=== PATIENT | male | born 1965 | race Caucasian/White ===

== ENCOUNTER → 2019-05-03 08:54 | Outpatient (CLI) | payer OTHER, SELFPAY ==
--- NOTE | 2019-05-03 09:09 | EKG12_ITS ---
Test Reason : PREOP Blood Pressure : / mmHG Vent. Rate : 066 BPM Atrial Rate : 066 BPM P-R Int : 176 ms QRS Dur : 114 ms QT Int : 394 ms P-R-T Axes : 041 -12 015 degrees QTc Int : 413 ms Normal sinus rhythm Minimal voltage criteria for LVH, may be normal variant Borderline ECG Confirmed by UZIEL CAPELLAN, MATIAS ([id number]), production editor KATEY RILEY ([id number]) on 05/05/2019 8:45:25 AM Referred By: Saji Dotson Confirmed By:MATIAS TRIPLETT MD
[2019-05-03 09:49] LABS: Hematocrit 51.3 % (40-54); Hemoglobin 16.4 g/dL (13.0-16.5); Mean Corpuscular Hgb 29.3 pg (27.0-32.0); Mean Corpuscular Volume 91.6 fL (80-94); Mean Platelet Vol. 10.1 fl (6.2-12.0); Platelet Count 327 K/mm3 (150-450); RBC Distribution Width CV 12.5 % (11.6-14.6); RBC Distribution Width SD 41.9 fl (35.1-43.9); White Blood Count 6.9 K/mm3 (4.4-11.0)
[2019-05-03 10:23] LABS: Anion Gap 4 (5-15); BUN 17 mg/dL (7-18); BUN/Creat Ratio 15.7 RATIO (10-20); Calcium,Total 8.7 mg/dL (8.5-10.1); Chloride 107 mmol/L (98-107); Creatinine, Serum 1.08 mg/dL (0.70-1.30); EST Glomerular Filtration Rate 75 mL/min (>60); Est Glom Filt Rate - Afr Amer 91 mL/min (>60); Glucose 88 mg/dL (74-106); Potassium 4.3 mmol/L (3.5-5.1); Sodium Level 142 mmol/L (136-145)
== END ==
PROVIDERS: Referring Provider Physician Assistant; Visit Provider Physician Assistant
DX: Z01.810 Encounter for preprocedural cardiovascular examination (principal); Z01.818 Encounter for other preprocedural examination
CPT/HCPCS: 36415; 80048; 85027; 93005

== ENCOUNTER → 2020-08-04 07:15 | Outpatient (CLI) | payer OTHER, SELFPAY ==
[2020-08-04 08:42] LABS: Microalbumin,Random Urine 11.3 mg/L (NO RANGE EST.); Microalbumin:Creatinine Ratio 6.6 mg/g CRE (<30 mg/g CRE)
[2020-08-04 08:57] LABS: Anion Gap 2 (5-15); BUN 17 mg/dL (7-18); Calcium,Total 8.5 mg/dL (8.5-10.1); Chloride 108 mmol/L (98-107); Cholesterol 177 mg/dL (200); EST Glomerular Filtration Rate 82 mL/min (>60); Est Glom Filt Rate - Afr Amer 99 mL/min (>60); Glucose 93 mg/dL (74-106); High Density Lipoprotein 39 mg/dL; Potassium 4.1 mmol/L (3.5-5.1); Sodium Level 139 mmol/L (136-145); Triglycerides 59 mg/dL; Very Low Density Lipoprotein 12 mg/dL (5-40)
== END ==
PROVIDERS: PCP Family Medicine; Referring Provider Family Medicine; Visit Provider Family Medicine
DX: I10 Essential (primary) hypertension (principal)
CPT/HCPCS: 36415; 80048; 80061; 82043; 82570

== ENCOUNTER → 2022-03-29 | Outpatient (CLI) | payer OTHER, SELFPAY ==
[2022-03-29 08:48] LABS: Anion Gap 2 (5-15); BUN 16 mg/dL (7-18); BUN/Creat Ratio 15.8 RATIO (10-20); Calcium,Total 9.3 mg/dL (8.5-10.1); Chloride 109 mmol/L (98-107); Cholesterol 198 mg/dL (200); Creatinine, Serum 1.01 mg/dL (0.70-1.30); EST Glomerular Filtration Rate 80 mL/min (>60); Est Glom Filt Rate - Afr Amer 97 mL/min (>60); Glucose 95 mg/dL (74-106); High Density Lipoprotein 36 mg/dL; Potassium 4.4 mmol/L (3.5-5.1); Sodium Level 141 mmol/L (136-145); Triglycerides 49 mg/dL; Very Low Density Lipoprotein 10 mg/dL (5-40)
== END | disposition home or self-care (01) ==
LOC: LAB.FUTURE 07:46 → LAB 07:52
PROVIDERS: PCP Family Medicine; Referring Provider Urology; Visit Provider Urology
DX: I10 Essential (primary) hypertension (principal); Z12.5 Encounter for screening for malignant neoplasm of prostate
CPT/HCPCS: 36415; 80048; 80061; 84153; G0103

== ENCOUNTER → 2022-10-20 | Outpatient (CLI) | payer BC, SELFPAY ==
[2022-10-20 18:58] LABS: Anion Gap 5 (5-15); BUN 21 mg/dL (7-18); BUN/Creat Ratio 19.1 RATIO (10-20); Chloride 109 mmol/L (98-107); EST Glomerular Filtration Rate 73 mL/min (>60); Est Glom Filt Rate - Afr Amer 88 mL/min (>60); Glucose 85 mg/dL (74-106); Potassium 3.9 mmol/L (3.5-5.1); Sodium Level 139 mmol/L (136-145)
== END | disposition home or self-care (01) ==
LOC: MFPLAB 15:28
PROVIDERS: PCP Family Medicine; Visit Provider Nurse Practitioner Family
DX: I10 Essential (primary) hypertension (principal)
CPT/HCPCS: 36415; 80048

== ENCOUNTER → 2024-04-23 | Outpatient (CLI) | payer BC, SELFPAY ==
[2024-04-23 09:47] LABS: ALB/GLOB Ratio 1.1 RATIO (0.9-2.4); AST(SGOT) 15 U/L (15-37); Alanine Aminotransfer ALT/SGPT 38 U/L (16-61); Albumin, Serum 3.7 g/dL (3.2-5.0); Alkaline Phosphatase 65 U/L (45-117); Anion Gap 4 (5-15); BUN 14 mg/dL (7-18); BUN/Creat Ratio 14.1 RATIO (10-20); Calcium,Total 8.7 mg/dL (8.5-10.1); Chloride 107 mmol/L (98-107); Cholesterol 196 mg/dL (200); Creatinine, Serum 0.99 mg/dL (0.70-1.30); EST Glomerular Filtration Rate 82 mL/min (>60); Est Glom Filt Rate - Afr Amer 99 mL/min (>60); Globulin 3.5 g/dL (2.2-4.2); Glucose 94 mg/dL (74-106); High Density Lipoprotein 43 mg/dL; Potassium 3.8 mmol/L (3.5-5.1); Protein, Total 7.2 g/dL (6.4-8.2); Sodium Level 139 mmol/L (136-145); Triglycerides 58 mg/dL; Very Low Density Lipoprotein 12 mg/dL (5-40)
== END | disposition home or self-care (01) ==
LOC: LAB 08:01 → LABSPEC 08:27
PROVIDERS: PCP Family Medicine; Referring Provider Family Medicine; Visit Provider Family Medicine
DX: I10 Essential (primary) hypertension (principal); Z12.5 Encounter for screening for malignant neoplasm of prostate
CPT/HCPCS: 36415; 80053; 80061; 84153

== ENCOUNTER → 2024-10-08 | Outpatient (CLI) | payer BC, SELFPAY ==
[2024-10-10 15:08] LABS: PSA, Free 1.14 ng/mL; PSA, Free % 30.5 % (.)
== END | disposition home or self-care (01) ==
PROVIDERS: PCP Family Medicine; Referring Provider Family Medicine; Visit Provider Family Medicine
DX: R97.20 Elevated prostate specific antigen [PSA] (principal)
CPT/HCPCS: 36415; 84153; 84154

== ENCOUNTER 2025-03-31 06:58 | Emergency (ER) | payer BC, SELFPAY ==
[2025-03-31 06:59] VITALS: BP 135/82; PULSE 78; RESP 16; TEMP 37.1; O2SAT 99; BMI 34.2
--- NOTE | 2025-03-31 07:27 | CT_ITS ---
PROCEDURE: ABDOMEN/PELVIS WITHOUT CONT 03/31/2025 REASON FOR EXAM: KIDNEY STONE Kidney stones. TECHNIQUE: Procedure Code: CTABDPEL Modality: CT Procedure: ABDOMEN/PELVIS WITHOUT CONT Noncontrast technique limits evaluation of the abdominal and pelvic viscera. Coronal and Sagittal reconstruction series were provided. One or more dose reduction techniques were used (e.g., Automated exposure control, adjustment of the mA and/or kV according to patient size, use of iterative reconstruction technique). RADIATION DOSE SUMMARY: CTDlvol: 13.3 mGy DLP: 708.8 mGycm COMPARISON: None. FINDINGS: Lung bases: Negative. ABDOMEN Liver: Simple cyst right lobe of liver. Slightly heterogeneous liver Biliary system: Negative. Negative for intrahepatic or extrahepatic ductal dilatation. Gallbladder: Partly contracted. Negative for cholecystitis. Spleen: Splenic calcifications. Otherwise negative. Pancreas: Negative. Adrenals: 1.9 x 2.4 cm right adrenal adenoma. Left adrenal gland negative. Kidneys: Small left parapelvic simple cysts. Negative for kidney stones. Negative for masses. Bowel: Mild increased stool throughout the colon. Mild diffuse diverticulosis. Negative for small or large-bowel obstruction. Appendix: Negative. No adjacent inflammation. Vasculature: Mild atherosclerotic vascular calcifications of the abdominal aorta and its branches. Peritoneum / Retroperitoneum: Negative. PELVIS Lymph nodes: Negative for inguinal or iliac adenopathy. Bladder: Mild urinary bladder wall thickening. Reproductive Organs: Mildly prominent prostate. Bones and Soft Tissues: Atrial degenerative changes in the mid and lower lumbar spine. CT/Abdomen/Pelvis without Cont IMPRESSION: Mild constipation Diverticulosis without diverticulitis. Left parapelvic simple renal cysts. Mildly prominent prostate with early BPH. Negative for kidney stones. Negative for acute intra-abdominal or pelvic pathology. Reading Location: [id number]
[2025-03-31 07:51] LABS: Hematocrit 50.2 % (40-54); Hemoglobin 16.1 g/dL (13.0-16.5); Immature Granulocytes Count 0.030 X10^3/uL (0.0-0.0); Mean Corp Hgb Conc 32.1 g/dL (32-36); Mean Corpuscular Volume 90.9 fL (80-94); Mean Platelet Vol. 9.6 fl (6.2-12.0); NRBC Flagged by Analyzer 0 % (0-5); Platelet Count 323 K/mm3 (150-450); RBC Distribution Width CV 12.7 % (11.6-14.6); RBC Distribution Width SD 42.5 fl (35.1-43.9); Red Blood Count 5.52 M/mm3 (4.6-6.2); White Blood Count 5.6 K/mm3 (4.4-11.0)
[2025-03-31] MEDS: Ketorolac 30 MG/ML Syringe IV (07:51)
[2025-03-31] MEDS: 0.9% Normal Saline (1000mL) 1,000 ML 250 ML IV (07:52)
--- NOTE | 2025-03-31 07:55 | EDS_ITS ---
HPI History of Present Illness Chief Complaint: Back Informant: patient and spouse/S.O. Narrative Narrative: 60-year-old male presenting to the emergency room with chief complaint of back pain. Patient states that for about a month he has been experiencing pain in the right low back. He states that he tries to stretch it out sometimes that hurts worse. He denies any radicular symptoms or urinary symptoms. He went to see primary care on Thursday and had a urine specimen that was reportedly normal. He states that today the pain was worse and seem to radiate around the lower abdomen to the right testicle. He is denies any current urinary symptoms. Normal bowel movements. No weight loss. No radiation to the leg. No loss of bowel or bladder control. He denies any rashes or fevers. No history of kidney stones. No nausea or vomiting. Patient states that he has had a hemorrhoid flareup but did not require excision when he saw the primary care the other day. He states that it is improving. PFSH [facility] Home Medications ?Medication ?Instructions ?Recorded ?Last Taken ?Type methylprednisolone 4 mg tablets in 4 mg PO DAILY #21 t abs 03/31/25 Unknown Rx a dose pack (Medrol (David)) Allergy/AdvReac Type Severity Reaction Status Date / Time No Known Allergies Allergy Verified 03/31/25 06:58 Social History Smoking Status: Never smoker ROS ROS ED Constitutional Constitutional ED: Denies chills, fever(s) or weight loss Eyes Eyes: Denies change in vision or diplopia ENT ENT ED: Denies ear pain, rhinorrhea or sore throat Cardiovascular Cardiovascular: Denies chest pain, orthopnea, palpitations or racing heartbeat Respiratory/Chest Respiratory/Chest: Denies cough, dyspnea or orthopnea Gastrointestinal Gastrointestinal: Denies abdominal pain, diarrhea, nausea or vomiting Genitourinary Genitourinary ED: Reports other Details: Right testicular pain ; Denies dysuria, hematuria or urinary frequency Musculoskeletal Musculoskeletal: Reports back pain; Denies arthralgias or myalgias Integumentary Denies abscess or rash Neurologic Neurologic: Denies headache(s) or weakness Psychiatric Psychiatric: Denies anxiety, depression, suicidal ideation or suicidal thoughts Endocrine Endocrinology: Denies polydipsia, polyphagia or polyuria Allergic/Immunologic Allergic/Immunologic ED: Denies mouth swelling, tongue swelling or urticaria EXAM Physical Exam Const Vital Signs: 03/31/25 06:59 03/31/25 08:58 03/31/25 09:25 Temperature 98.7 F 97.8 F Temperature Source Oral Pulse Rate 78 86 64 Respiratory Rate 16 16 18 Blood Pressure 135/82 H 145/78 H 136/78 H Blood Pressure Mean 99 100 97 Pulse Ox 99 98 99 Oxygen Delivery Method Room Air Room Air Positive well nourished and well developed General Appearance ED: well developed HEENT Reports normocephalic, head/scalp atraumatic and moist mucous membranes Eyes PERRL and EOMs intact bilaterally Neck no lymphadenopathy, supple and no JVD Resp normal respiratory effort and clear to auscultation bilaterally Cardio regular rate, regular rhythm and no murmurs GI normal to inspection, nondistended, normoactive bowel sounds and non-tender Palpation: soft Back/Spine no CVA tenderness and normal ROM Back/Spine Narrative: No tenderness at the right SI joint. I do not appreciate any rash. There is no lumbar tenderness. Patient points near the right SI joint as the area that hurts. Patient notes pain when he goes into lumbar extension. Extremity normal to inspection General Extremety ED: Negative for edema General Extremity: Negative for edema Neuro oriented x3 and CN's II-XII intact bilaterally Sensorium / Orientation: alert Motor Exam: strength 5/5 throughout Psych mental status grossly normal Mood & Affect: Negative for depressed or tearful Skin no rashes or lesions noted and no wounds MDM MDM MDM Narrative Medical decision making narrative: Differential diagnosis includes but not limited to lumbar radiculopathy sacroiliitis kidney stone UTI pelvic abscess diverticulitis colitis Basic blood work was obtained shows a normal white count of 5.6. BMP shows glucose 112. Urinalysis no overt infection or hematuria. CT then pelvis was obtained do not see any kidney stone. Please see radiologist read for full details. There are some foci of gas near the L4-L5 interspace. I do wonder if the patient has some disc disease. But at the current time I do not appreciate any neurologic deficits. I spoke with the patient and his regarding the above symptoms. He notes he has been on a skid steer most of the week. Advised to stay off of this. We talked about risk benefits of Medrol. I spoke with the patient's primary care doctor who will follow-up with him next week. He was advised to return instructions he notes understanding is comfortable with this plan. History & Record Review Discussion w/independent historian: Patient and Significant other Lab Data Attestation: I reviewed the patient's lab results. Labs: Laboratory Results - last 24 hr 03/31/25 03/31/25 07:38 07:46 WBC 5.6 RBC 5.52 Hgb 16.1 Hct 50.2 MCV 90.9 MCH 29.2 MCHC 32.1 RDW Std Deviation 42.5 RDW Coeff of Magalis 12.7 Plt Count 323 MPV 9.6 Immature Gran % (Auto) 0.500 Neut % (Auto) 77.8 H Lymph % (Auto) 13.5 L [place] % (Auto) 6.6 Eos % (Auto) 0.9 Baso % (Auto) 0.7 Absolute Neuts (auto) 4.4 Absolute Lymphs (auto) 0.76 L Nucleated RBC % 0 Sodium 140 Potassium 4.1 Chloride 105 Carbon Dioxide 27.3 Anion Gap 9 BUN 17 Creatinine 1.01 Estim Creat Clear Calc 82.39 Est GFR (MDRD) Non-Af 84 BUN/Creatinine Ratio 16.6 Glucose 112 H Calcium 9.3 Urine Color Yellow Urine Clarity Clear Urine pH 6.0 Ur Specific [place] 1.015 Urine Protein 15 H Urine Glucose (UA) Normal Urine Ketones Negative Urine Occult Blood 10 H Urine Nitrite Negative Urine Bilirubin Negative Urine Urobilinogen Normal Ur Leukocyte Esterase Negative Urine RBC 0 SEEN Urine WBC 0 SEEN Ur Squamous Epith Cells 0 SEEN Urine Bacteria 0 SEEN Urine Mucus 0 SEEN Radiography Diagnostic Testing: Clinical Impression(s) from Imaging Studies Abdomen/Pelvis CT 03/31/25 07:27 IMPRESSION: Mild constipation Diverticulosis without diverticulitis. Left parapelvic simple renal cysts. Mildly prominent prostate with early BPH. Negative for kidney stones. Negative for acute intra-abdominal or pelvic pathology. Reading Location: [id number] Management Discussion w/another healthcare provider: PCP (Dr. Sánchez) Discharge Plan Triage Chief Complaint: Back ED Provider: Gaurang Tena Dx/Rx/DC Orders Clinical Impression: Acute low back pain, Degenerative disc disease, lumbar Instructions: ED Degenerative Disk Disease Prescriptions: New methylprednisolone [Medrol (David)] 4 mg tablets,dose pack 4 mg PO DAILY Qty: 21 0RF Primary Care Provider: Anil Sánchez Referrals: Anil Sánchez MD [Primary Care Provider, Family Practice] - As soon as possible Print Language: Lithuanian Disposition Disposition: Home, Self Care Discharge Date/Time: 03/31/25 09:36
[2025-03-31 08:05] LABS: Mucous, Urine 0 SEEN /hpf (<or=2+); Red Blood Cells-Urine 0 SEEN /hpf (0-5); Squamous Epithelial Cells - UA 0 SEEN /hpf (0-5)
[2025-03-31 08:08] LABS: Color, Urine Yellow (Yellow); Glucose, Dipstick Normal (Normal); Ketone-Dipstick Negative (Negative); Leukocyte Esterase-Dipstick Negative /ul (Negative); Nitrite-Dipstick Negative (Negative); Occult Blood-Urine 10 /ul (Negative); Protein-Dipstick 15 mg/dl (Negative); Specific Gravity, Urine 1.015 (1.002-1.030); Urine Bilirubin Dipstick Negative (Negative)
[2025-03-31 08:12] LABS: Anion Gap 9 (5-15); BUN 17 mg/dL (4-19); BUN/Creat Ratio 16.6 RATIO (10-20); Calcium,Total 9.3 mg/dL (7.6-11.0); Carbon Dioxide 27.3 mmol/L (21.0-32.0); Chloride 105 mmol/L (98-108); Estimated Creatinine Clearance 82.39 ml/min (50-250); Glucose 112 mg/dL (70-99); Potassium 4.1 mmol/L (3.3-5.1)
[2025-03-31 08:58] VITALS: BP 145/78; PULSE 86; RESP 16; O2SAT 98
[2025-03-31 09:25] VITALS: BP 136/78; PULSE 64; RESP 18; TEMP 36.6; O2SAT 99
--- NOTE | 2025-04-05 11:16 | CASEMGMT ---
This RN CM was notified that [facility] is requesting clarification regarding the pt's Medrol Rx. TC to the pt who states that he was able to get the Rx filled at [facility] and denies any further questions, concerns, or needs. Dr Tena notified.
== END 2025-03-31 09:36 | disposition home or self-care (01) ==
PROVIDERS: Emergency Provider Emergency Medicine; PCP Family Medicine; Visit Provider Emergency Medicine
DX: M51.360 Other intervertebral disc degeneration, lumbar region with discogenic back pain only (principal)
CPT/HCPCS: 74176; 80048; 81001; 85025; 96361; 96374; 96375; 99283; A4216; J2405

== ENCOUNTER → 2025-04-07 | Outpatient (CLI) | payer BC, SELFPAY ==
--- OUTSIDE RECORDS SUMMARY | 2025-04-07 09:24 | XMS RPT_ITS | CCD ---
Author Organization [facility] Care Team Providers [facility] Manager Name Role Phone Magnus Juan Jose No Primary Care Provider Juan Jose Barragan Primary Care Provider Tamar Lang RN, Belén Gilbert MD, Dr. Ma Primary Care Provider Princess CAPELLAN, Dr. Ma Attending Provider [phone] Princess CAPELLAN, Dr. Ma Referring Provider Anil Sánchez Referring Unavailable Anil Sánchez Attending Unavailable Anil Sánchez Primary Care Unavailable Anil Sánchez Referring Unavailable Anil Sánchez Attending Unavailable Anil Sánchez Primary Care Unavailable Medications Current Medications Medication Drug Class(es) Dates Sig (Normalized) Sig (Original) acetaminophen 500 mg oral tablet (1 source) Start: 1 take 2 tablets by mouth every eight hours acetaminophen (TYLENOL) 500 mg tablet Indications: S/P total knee arthroplasty, left Take 2 tablets by mouth every 8 hours. Taper down and off as pain subsides 90 tablet 1 04/19/2021 Active aspirin 325 mg delayed release oral tablet (1 source) Platelet Aggregation Inhibitor, Nonsteroidal Anti-inflammator y Drug Start: 1 take 1 tablet by mouth twice daily aspirin, enteric coated (ASPIRIN, ENTERIC COATED) 325 mg EC tablet Indications: S/P total knee arthroplasty, left Take 1 tablet by mouth twice daily. 60 tablet 04/19/2021 Active baclofen 10 mg oral tablet (1 source) gamma-Aminobutyr ic Acid-ergic Agonist Start: 1 take 1 tablet by mouth three times daily baclofen (LIORESAL) 10 mg tablet Indications: S/P total knee arthroplasty, left Take 1 tablet by mouth three times daily. 30 tablet 1 04/19/2021 Active hydroCHLOROthiazide 12.5 mg oral tablet (1 source) Thiazide Diuretic Start: 1 take 1 tablet by mouth once daily hydroCHLOROthiazide (HYDRODIURIL, ESIDRIX) 12.5 mg tablet Take 12.5 mg by mouth once daily. 09/11/2020 Active lisinopril 20 mg oral tablet (1 source) Angiotensin Converting Enzyme Inhibitor Start: 1 take 1 tablet by mouth once daily lisinopril (ZESTRIL, PRINIVIL) 20 mg tablet Take 20 mg by mouth once daily. 08/07/2020 Active ondansetron 4 mg oral tablet (1 source) Serotonin-3 Receptor Antagonist Start: 1 take 1 tablet by mouth every eight hours as needed for nausea ondansetron (ZOFRAN) 4 mg tablet Indications: S/P total knee arthroplasty, left Take 1 tablet by mouth every 8 hours as needed for nausea/vomiting. 9 tablet 04/19/2021 Active therapeutic multivitamin-minerals (THERA-M PLUS) 9 mg iron-400 mcg tablet (1 source) Start: 1 therapeutic multivitamin-minerals (THERA-M PLUS) 9 mg iron-400 mcg tablet Indications: S/P total knee arthroplasty, left Take 1 tablet by mouth once daily. 30 tablet 04/19/2021 Active Completed/Discontinued Medications Medication Drug Class(es) Dates Sig (Normalized) Sig (Original) bisacodyl 5 mg delayed release oral tablet (1 source) Stimulant Laxative Start: 04-20-2021 take 2 tablets by mouth once daily as needed for constipation bisacodyl EC (DULCOLAX) 5 mg EC tablet Indications: S/P total knee arthroplasty, left Take 2 tablets by mouth once daily. Take regularly when on narcotics, Take as needed for constipation when narcotics completed 60 tablet 04/20/2021 Active docusate sodium 100 mg oral capsule (1 source) Start: 04-19-2021 take 1 capsule by mouth twice daily as needed for constipation docusate sodium (COLACE) 100 mg capsule Indications: S/P total knee arthroplasty, left Take 1 capsule by mouth twice daily. Take regularly when on narcotics, Take as needed for constipation when narcotics completed 60 capsule 04/19/2021 Active zolpidem tartrate 5 mg oral tablet (1 source) gamma-Aminobutyri c Acid-ergic Agonist Start: 05-24-2021 End: 06-05-2021 zolpidem (AMBIEN) 5 mg tablet Indications: S/P total knee arthroplasty, left 1 tablet at night. May repeat 1 hour later. 14 tablet 05/24/2021 06/05/2021 Discontinued Problems Problem Classification Problem Date Documented Date Episodic/Chronic Essential hypertension (2 sources) Benign essential hypertension; Translations: [Essential (primary) hypertension] Onset: 04-03-2021 04-03-2021 Chronic Osteoarthritis (6 sources) Primary gonarthrosis, bilateral; Translations: [Bilateral primary osteoarthritis of knee] Onset: 10-29-2020 10-29-2020 Chronic Other connective tissue disease (1 source) History of total knee arthroplasty; Translations: [Presence of left artificial knee joint] Onset: 05-14-2021 05-14-2021 Chronic Other nutritional; endocrine; and metabolic disorders (1 source) Obesity caused by energy imbalance; Translations: [Class 1 obesity due to excess calories with body mass index (BMI) of 32.0 to 32.9 in adult] Onset: 04-03-2021 04-03-2021 Chronic Other screening for suspected conditions (not mental disorders or infectious disease) (1 source) Elevated prostate specific antigen [PSA]; Translations: [Elevated prostate specific antigen [PSA]] Onset: 10-13-2024 Episodic Residual codes; unclassified (1 source) Pain; Translations: [Pain, unspecified] 10-29-2020 Episodic Results Test Name Value Interpretation Reference Range Facility PSA Total+%Freeon 10-10-2024 PSA, FREE 1.14 ng/mL Normal N/A [facility] Comment on above: Order Comment: Order Date: 07/11/24 Order Info: 0756-1 - PSAT%F Result Comment: Danielle KULKARNI methodology. Performed By: #### L 3110.0500 #### [facility] [address] [place], [address] PSA, FREE % 30.5 Normal . [facility] Comment on above: Order Comment: Order Date: 07/11/24 Order Info: 0756-1 - PSAT%F Result Comment: The table below lists the probability of prostate cancer for men with non-suspicious MEHRDAD results and total PSA between 4 and 10 ng/mL, by patient age (Torey et al, IRA 1998, 279:1542). % Free PSA 50-64 yr 65-75 yr 0.00-10.00% 56% 55% 10.01-15.00% 24% 35% 15.01-20.00% 17% 23% 20.01-25.00% 10% 20% >25.00% 5% 9% Please note: Torey et al did not make specific recommendations regarding the use of percent free PSA for any other population of men. Performed at: - [facility] [id number] [place] Fancier: Sumanth Boyer PhD, Phone: [phone] Performed By: #### L 3110.0500 #### [facility] [address] [place], [address] PSA, TOTAL ULTR 3.740 ng/mL Normal 0.000-4.000 [facility] Comment on above: Order Comment: Order Date: 07/11/24 Order Info: 0756-1 - PSAT%F Result Comment: Danielle KULKARNI methodology. According to the [place] [employer], Serum PSA should decrease and remain at undetectable levels after radical prostatectomy. The AUA defines biochemical recurrence as an initial PSA value 0.200 ng/mL or greater followed by a subsequent confirmatory PSA value 0.200 ng/mL or greater. Values obtained with different assay methods or kits cannot be used interchangeably. Results cannot be interpreted as absolute evidence of the presence or absence of malignant disease. Performed By: #### L 3110.0500 #### [facility] [address] [place], [address] Serum or plasma free prostat e specific antigen (PSA)/total PSA mass ratioOrdered By: Anil Sánchez on 10-08-2024 Free PSA/Total PSA [Mass fraction] 30.5 % . [facility] Comment on above: The table below list s the probability of prostate cancer formen with non-suspicious MEHRDAD results and total PSA between4 and 10 ng/mL, by patient age (Torey et al, IRA 1998,279:1542). % Free PSA 50-64 yr 65-75 yr 0.00-10.00% 56% 55% 10.01-15.00% 24% 35% 15.01-20.00% 17% 23% 20.01-25.00% 10% 20% >25.00% 5% 9%Please note: Torey et al did not make specific recommendations regarding the use of percent free PSA for any other population of men.Performed at: - [facility] [id number] Director: Sumanth Boyer PhD, Phone: [phone] [facility] Metabolic Prof [facility] 04-23-2024 Albumin [Mass/Vol] 3.7 g/dL Normal 3.2-5.0 [facility] Comment on above: Order Comment: Order Date: 04/21/23 Order Info: 0667-1 - BMP Order Date: 04/11/24 Order Info: 0786-1 - CMP Order Info: [id number] - LIPID Order Info: 2857-1 - PSA Order Info: 0783-1 - PSAD Performed By: #### L 500.4050, L501.9940 #### [facility] [address] [place], [place], [address] Albumin/Globulin [Mass ratio] 1.1 {ratio} Normal 0.9-2.4 [facility] Comment on above: Order Comment: Order Date: 04/21/23 Order Info: 0667-1 - BMP Order Date: 04/11/24 Order Info: 0786-1 - CMP Order Info: [id number] - LIPID Order Info: 2857-1 - PSA Order Info: 0783-1 - PSAD Performed By: #### L 500.4050, [id number] #### [facility] [address] [place], [place], [address] ALK P 65 U/L Normal 45-117 [facility] Comment on above: Order Comment: Order Date: 04/21/23 Order Info: 0667-1 - BMP Order Date: 04/11/24 Order Info: 07- - CMP Order Info: - LIPID Order Info: 2856-05 - PSA Order Info: 782-05 - PSAD Performed By: #### L 500.4050, [id number] #### [facility] [address] [place], [address] ALT [Catalytic activity/Vol] 38 U/L Normal 16-61 [facility] Comment on above: Order Comment: Order Date: 04/21/23 Order Info: 666- - BMP Order Date: 04/11/24 Order Info: 785-1 - CMP Order Info: 00543-3 - LIPID Order Info: 2856-05 - PSA Order Info: 782-05 - PSAD Performed By: #### L 500.4050, [id number] #### [facility] [address] [place], [place], [id number] AST [Catalytic activity/Vol] 15 U/L Normal 15-37 [facility] Comment on above: Order Comment: Order Date: 04/21/23 Order Info: 666-05 - BMP Order Date: 04/11/24 Order Info: 785-05 - CMP Order Info: - LIPID Order Info: 2856-05 - PSA Order Info: 782-05 - PSAD Performed By: #### L 500.4050, [id number] #### [facility] [address] [place], [address] Bilirubin [Mass/Vol] 0.40 mg/dL Normal 0.20-1.00 [facility] Comment on above: Order Comment: Order Date: 04/21/23 Order Info: 666-05 - BMP Order Date: 04/11/24 Order Info: 785- - CMP Order Info: - LIPID Order Info: 2856-05 - PSA Order Info: 782-05 - PSAD Result Comment: For patients on eltrombopag therapy, use of Dimension Brogan TBIL is not recommended. Performed By: #### L 500.4050, [id number] #### [facility] [address] [place], [address] BUN/CRE 14.1 RATIO Normal 10-20 [facility] Comment on above: Order Comment: Order Date: 04/21/23 Order Info: 666- - BMP Order Date: 04/11/24 Order Info: 785-1 - CMP Order Info: 82356-9 - LIPID Order Info: 285-1 - PSA Order Info: 782- - PSAD Performed By: #### L 500.4050, [id number] #### [facility] [address] [place], [address] CA,Total 8.7 mg/dL Normal 8.5-10.1 [facility] Comment on above: Order Comment: Order Date: 04/21/23 Order Info: 666-05 - BMP Order Date: 04/11/24 Order Info: 785- - CMP Order Info: - LIPID Order Info: 2856-05 - PSA Order Info: 782- - PSAD Performed By: #### L 500.4050, [id number] #### [facility] [address] [place], [address] Chloride [Moles/Vol] 107 mmol/L Normal 98-107 [facility] Comment on above: Order Comment: Order Date: 04/21/23 Order Info: 666- - BMP Order Date: 04/11/24 Order Info: 785-05 - CMP Order Info: - LIPID Order Info: 2857-1 - PSA Order Info: 782- - PSAD Performed By: #### L 500.4050, [id number] #### [facility] [address] [place], [address] CO2 [Moles/Vol] 29.0 mmol/L Normal 21.0-32.0 [facility] Comment on above: Order Comment: Order Date: 04/21/23 Order Info: 666-05 - BMP Order Date: 04/11/24 Order Info: 785- - CMP Order Info: - LIPID Order Info: 2856-05 - PSA Order Info: 782-05 - PSAD Performed By: #### L 500.4050, [id number] #### [facility] [address] [place], [address] Creatinine [Mass/Vol] 0.99 mg/dL Normal 0.70-1.30 [facility] Comment on above: Order Comment: Order Date: 04/21/23 Order Info: 666-05 - BMP Order Date: 04/11/24 Order Info: 785-05 - CMP Order Info: - LIPID Order Info: 2856-05 - PSA Order Info: 782-05 - PSAD Result Comment: The validity of the calculated GFR GFRAA in patients over 70 years has not been determined. Clinical correlation is essential. Performed By: #### L 500.4050, [id number] #### [facility] [address] [place], [address] EST GFR - AA 99 mL/min Normal >60 [facility] Comment on above: Order Comment: Order Date: 04/21/23 Order Info: 666-05 - BMP Order Date: 04/11/24 Order Info: 785-05 - CMP Order Info: - LIPID Order Info: 2856-05 - PSA Order Info: 782-05 - PSAD Result Comment: Afri can [place] GFR Calc Performed By: #### L 500.4050, [id number] #### [facility] [address] [place], [address] GAP 4 Low 5-15 [facility] Comment on above: Order Comment: Order Date: 04/21/23 Order Info: 666-05 - BMP Order Date: 04/11/24 Order Info: 785-05 - CMP Order Info: - LIPID Order Info: 2856-05 - PSA Order Info: 782-05 - PSAD Performed By: #### L 500.4050, [id number] #### [facility] [address] [place], [address] GFR/1.73 sq M.predicted among non-blacks MDRD (S/P/Bld) [Vol rate/Area] 82 mL/min/{1.73_m2} Normal >60 [facility] Comment on above: Order Comment: Order Date: 04/21/23 Order Info: 666- - BMP Order Date: 04/11/24 Order Info: 785-1 - CMP Order Info: [id number] - LIPID Order Info: 285- - PSA Order Info: 782- - PSAD Result Comment: Non- GFR Calc Performed By: #### L 500.4050, [id number] #### [facility] [address] [place], [address] Globulin (S) [Mass/Vol] 3.5 g/dL Normal 2.2-4.2 [facility] Comment on above: Order Comment: Order Date: 04/21/23 Order Info: 666-05 - BMP Order Date: 04/11/24 Order Info: 785- - CMP Order Info: 64421-6 - LIPID Order Info: 2857 - PSA Order Info: 782-05 - PSAD Performed By: #### L 500.4050, [id number] #### [facility] [address] [place], [address] Glucose [Mass/Vol] 94 mg/dL Normal 74-106 [facility] Comment on above: Order Comment: Order Date: 04/21/23 Order Info: 666- - BMP Order Date: 04/11/24 Order Info: 785-1 - CMP Order Info: 18996-9 - LIPID Order Info: 2857-1 - PSA Order Info: 782-05 - PSAD Performed By: #### L 500.4050, [id number] #### [facility] [address] [place], [place], [address] Potassium [Moles/Vol] 3.8 mmol/L Normal 3.5-5.1 [facility] Comment on above: Order Comment: Order Date: 04/21/23 Order Info: 666-05 - BMP Order Date: 04/11/24 Order Info: 785- - CMP Order Info: - LIPID Order Info: 2856-05 - PSA Order Info: 782-05 - PSAD Performed By: #### L 500.4050, [id number] #### [facility] [address] [place], [address] Sodium [Moles/Vol] 139 mmol/L Normal 136-145 [facility] Comment on above: Order Comment: Order Date: 04/21/23 Order Info: 666-05 - BMP Order Date: 04/11/24 Order Info: 785-05 - CMP Order Info: - LIPID Order Info: 2856-05 - PSA Order Info: 782-05 - PSAD Performed By: #### L 500.4050, [id number] #### [facility] [address] [place], [place], [address] T PROT 7.2 g/dL Normal 6.4-8.2 [facility] Comment on above: Order Comment: Order Date: 04/21/23 Order Info: 666-05 - BMP Order Date: 04/11/24 Order Info: 785-05 - CMP Order Info: - LIPID Order Info: 2856-05 - PSA Order Info: 782-05 - PSAD Performed By: #### L 500.4050, [id number] #### [facility] [address] [place], [address] Urea nitrogen [Mass/Vol] 14 mg/dL Normal 7-18 [facility] Comment on above: Order Comment: Order Date: 04/21/23 Order Info: 666-05 - BMP Order Date: 04/11/24 Order Info: 785-05 - CMP Order Info: [id number] - LIPID Order Info: 2856-05 - PSA Order Info: 782-05 - PSAD Performed By: #### L 500.4050, [id number] #### [facility] [address] [place], [address] Lipid Profileon 04-23-2024 Cholesterol [Mass/Vol] 196 mg/dL Normal 200 [facility] Comment on above: Order Comment: Order Date: 04/21/23 Order Info: 666-05 - BMP Order Date: 04/11/24 Order Info: 785-1 - CMP Order Info: 05826-5 - LIPID Order Info: 2856-05 - PSA Order Info: 782-05 - PSAD Result Comment: <200 mg/dL Desirable 200-240 mg/dL Borderline >240 mg/dL High Risk Performed By: #### L 500.4100 #### [facility] [address] [place], [address] Cholesterol in HDL [Mass/Vol] 43 mg/dL Normal [facility] Comment on above: Order Comment: Order Date: 04/21/23 Order Info: 666-05 - BMP Order Date: 04/11/24 Order Info: 785-05 - CMP Order Info: - LIPID Order Info: 2856-05 - PSA Order Info: 782-05 - PSAD Result Comment: The drugs N-Acetylcysteine and Metamizole may falsely depress this assay. Reference Range HDL <40 mg/dL Low HDL Cholesterol HDL >or= 60 mg/dL High HDL Cholesterol Performed By: #### L 500.4100 #### [facility] [address] [place], [address] Cholesterol in LDL [Mass/Vol] 141 mg/dL High 0-130 [facility] Comment on above: Order Comment: Order Date: 04/21/23 Order Info: 666-05 - BMP Order Date: 04/11/24 Order Info: 785- - CMP Order Info: 27160-2 - LIPID Order Info: 2856-05 - PSA Order Info: 782-05 - PSAD Performed By: #### L 500.4100 #### [facility] [address] [place], [address] Cholesterol in VLDL [Mass/Vol] 12 mg/dL Normal 5-40 [facility] Comment on above: Order Comment: Order Date: 04/21/23 Order Info: 666-05 - BMP Order Date: 04/11/24 Order Info: 785-05 - CMP Order Info: - LIPID Order Info: 2856-05 - PSA Order Info: 782-05 - PSAD Performed By: #### L 500.4100 #### [facility] [address] [place], [address] Triglyceride [Mass/Vol] 58 mg/dL Normal [facility] Comment on above: Order Comment: Order Date: 04/21/23 Order Info: 666-05 - BMP Order Date: 04/11/24 Order Info: 785-05 - CMP Order Info: - LIPID Order Info: 2856-05 - PSA Order Info: 782-05 - PSAD Result Comment: The drugs N-Acetylcysteine and Metamizole may falsely depress this assay. Serum Triglycerides Reference Interval Normal <150 mg/dL Borderline high 150 - 199 mg/dL High 200 - 499 mg/dL Very High > or = 500 mg/dL Performed By: #### L 500.4100 #### [facility] [address] [place], [address] PSA,Total- Diagnosticon 04-10 PSA, DIAGNOSTIC 4.10 ng/mL High 0.0-4.0 [facility] Comment on above: Order Comment: Order Date: 04/21/23 Order Info: 666-05 - BMP Order Date: 04/11/24 Order Info: 785-05 - CMP Order Info: - LIPID Order Info: 2856-05 - PSA Order Info: 782-05 - PSAD Result Comment: This test was performed using the TPSA assay method for the [employer] chemistry system. Values obtained with different assay methods cannot be used interchangably. When changing PSA assays in the course of monitoring a patient, additional sequential testing should be carried out to confirm baseline values. Performed By: #### L 500.4050, L501.9940 #### [facility] [address] [place], [address] Basophil percentageOrdered B y: Tiffanie Mcclelland on 10-20-2022 Chloride [Moles/Vol] 109 mmol/L 98-107 [facility] Glucose [Mass/Vol] 85 mg/dL 74-106 [facility] Potassium [Moles/Vol] 3.9 mmol/L 3.5-5.1 [facility] Sodium [Moles/Vol] 139 mmol/L 136-145 [facility] - Chemistry and C hemistry - challengeOrdered By: Tiffanie Mcclelland on 10-20-2022 CO2 [Moles/Vol] 25.0 mmol/L 21.0-32.0 [facility] Urea nitrogen/Creatinine [Mass ratio] 19.1 mg/mg 10-20 [facility] No Panel InformationOrdered By: Tiffanie Mcclelland on 10-20-2022 Estimated GFR (MDRD) Amer 88 mL/min >60 [facility] Comment on above: GFR Calc Estimated GFR (MDRD) Non-Af Amer 73 mL/min >60 [facility] Comment on above: Non- GFR Calc Serum or plasma calcium campos urement (mass/volume)Ordered By: Tiffanie Mcclelland on 10-20-2022 Calcium [Mass/Vol] 9.0 mg/dL 8.5-10.1 [facility] Serum or plasma creatinine m easurement (mass/volume)Ordered By: Tiffanie Mcclelland on 10-20-2022 Creatinine [Mass/Vol] 1.10 mg/dL 0.70-1.30 [facility] Comment on above: The validity of the calculated GFR & GFRAA in patients over 70 years has not been determined. Clinical correlation is essential. Serum or plasma urea nitroge n measurement (mass/volume)Ordered By: Tiffanie Mcclelland on 10-20-2022 Urea nitrogen [Mass/Vol] 21 mg/dL 7-18 [facility] Thin prep Papanicolaou smear with manual screeningOrdered By: Tiffanie Mcclelland on 10-20-2022 Thin prep Papanicolaou smear with manual screening 5 5-15 [facility] Basophil percentageon 2021 Chloride [Moles/Vol] 109 mmol/L 98-107 [facility] Work Phone: Cholesterol [Mass/Vol] 198 mg/dL <200 krystin [facility] Work Phone: [phone] Comment on above: <200 mg/dL Desirable 200-240 mg/dL Borderline >240 mg/dL High Risk Glucose [Mass/Vol] 95 mg/dL 74-106 [facility] Work Phone: [phone] Potassium [Moles/Vol] 4.4 mmol/L 3.5-5.1 [facility] Work Phone: [phone] Sodium [Moles/Vol] 141 mmol/L 136-145 [facility] Work Phone: [phone] Triglyceride [Mass/Vol] 49 mg/dL <199 [facility] Work Phone: [phone] Comment on above: The drugs N-Acetylcy steine and Metamizole may falsely depress this assay.Serum Triglycerides Reference Interval Normal <150 mg/dL Borderline high 150 - 199 mg/dL High 200 - 499 mg/dL Very High > or = 500 mg/dL Laboratory - Chemistry and C hemistry - challengeon 03-29-2022 CO2 [Moles/Vol] 30.0 mmol/L 21.0-32.0 [facility] Work Phone: Urea nitrogen/Creatinine [Mass ratio] 15.8 mg/mg 10-20 [facility] Work Phone: No Panel Informationon 03-29 Estimated GFR (MDRD) Amer 97 mL/min >60 [facility] Work Phone: Comment on above: GFR Calc Estimated GFR (MDRD) Non-Af Amer 80 mL/min >60 [facility] Work Phone: Comment on above: Non- GFR Calc Prostate Specific Antigen Screen 3.30 ng/mL 0.00-4.00 [facility] Work Phone: Comment on above: This test was perfor med using the TPSA assay method for the[facility] chemistry system. Values obtained with differentassay methods cannot be used interchangably.When changing PSA assays in the course of monitoring apatient, additional sequential testing should be carriedout to confirm baseline values. Serum or plasma calcium campos urement (mass/volume)on 03-29-2022 Calcium [Mass/Vol] 9.3 mg/dL 8.5-10.1 [facility] Work Phone: Serum or plasma cholesterol in HDL measurement (mass/volume)on 03-29-2022 Cholesterol in HDL [Mass/Vol] 36 mg/dL >40 [facility] Work Phone: Comment on above: The drugs N-Acetylcy steine and Metamizole may falsely depress this assay. Reference Range HDL <40 mg/dL Low HDL Cholesterol HDL >or= 60 mg/dL High HDL Cholesterol Serum or plasma cholesterol in VLDL measurement (mass/volume)on 03-29-2022 Cholesterol in VLDL [Mass/Vol] 10 mg/dL 5-40 [facility] Work Phone: Serum or plasma creatinine m easurement (mass/volume)on 03-29-2022 Creatinine [Mass/Vol] 1.01 mg/dL 0.70-1.30 [facility] Work Phone: Comment on above: The validity of the calculated GFR & GFRAA in patients over 70 years has not been determined. Clinical correlation is essential. Serum or plasma low density lipoprotein (LDL) cholesterol measurement (mass/volume)on 03-29-2022 Cholesterol in LDL [Mass/Vol] 152 mg/dL 0-130 [facility] Work Phone: Serum or plasma urea nitroge n measurement (mass/volume)on 03-29-2022 Urea nitrogen [Mass/Vol] 16 mg/dL 7-18 [facility] Work Phone: Thin prep Papanicolaou smear with manual screeningon 03-29-2022 Thin prep Papanicolaou smear with manual screening 2 5-15 [facility] Work Phone: CNTHERAPYon 07-03-2021 CNTHERAPY OT/PT/Speech Visit (PTWS) NAHUMRAMON JJ ([id number]) 1965 M Date Time Provider Department 07/03/21 5:15 PM KATHY STEPHENS Date Time Provider Department Center 07/03/2021 5:15 PM [id number] STEPHENS Reason for Visit: PT Discharge [752] Visit Diagnosis:Status post total knee replacement, left [Z96.652] Allergies As of Date: 07/03/2021 (No Known Allergies) Date Reviewed: 05/30/2021 Reviewed by: Ginger Lopes RN - Fully Assessed Prescriptions as of 09/13/2021 - traMADol (ULTRAM) 50 mg tablet Take 1-2 tablets by mouth every 8 hours as needed for pain. for pain. - zolpidem (AMBIEN) 5 mg tablet 1 tablet at night. May repeat 1 hour later. - nabumetone (RELAFEN) 750 mg tablet Take 750 mg by mouth once daily. - baclofen (LIORESAL) 10 mg tablet Take 1 tablet by mouth three times daily. - aspirin, enteric coated (ASPIRIN, ENTERIC COATED) 325 mg EC tablet Take 1 tablet by mouth twice daily. - acetaminophen (TYLENOL) 500 mg tablet Take 2 tablets by mouth every 8 hours. Taper down and off as pain subsides - bisacodyl EC (DULCOLAX) 5 mg EC tablet Take 2 tablets by mouth once daily. Take regularly when on narcotics, Take as needed for constipation when narcotics completed - docusate sodium (COLACE) 100 mg capsule Take 1 capsule by mouth twice daily. Take regularly when on narcotics, Take as needed for constipation when narcotics completed - therapeutic multivitamin-minerals (THERA-M PLUS) 9 mg iron-400 mcg tablet Take 1 tablet by mouth once daily. - ondansetron (ZOFRAN) 4 mg tablet Take 1 tablet by mouth every 8 hours as needed for nausea/vomiting. - hydroCHLOROthiazide (HYDRODIURIL, ESIDRIX) 12.5 mg tablet Take 12.5 mg by mouth once daily. - lisinopril (ZESTRIL, PRINIVIL) 20 mg tablet Take 20 mg by mouth once daily. Normal [facility] CNTHERAPYon 06-26-2021 CNTHERAPY OT/PT/Speech Visit (PTWS) RAMON ALVES ([id number]) 1965 M Date Time Provider Department 06/26/21 5:15 PM KATHY STEPHENS PTTIEN Date Time Provider Department [place] 06/26/2021 5:15 PM [id number] STEPHENS Reason for Visit: PT Progress Note [1596] Visit Diagnosis:Status post total knee replacement, left [Z96.652] Allergies As of Date: 06/26/2021 (No Known Allergies) Date Reviewed: 05/30/2021 Reviewed by: Ginger Lopes RN - Fully Assessed Prescriptions as of 06/26/2021 - zolpidem (AMBIEN) 5 mg tablet 1 tablet at night. May repeat 1 hour later. - traMADol (ULTRAM) 50 mg tablet Take 1-2 tablets by mouth every 8 hours as needed for pain. for pain. - nabumetone (RELAFEN) 750 mg tablet Take 750 mg by mouth once daily. - baclofen (LIORESAL) 10 mg tablet Take 1 tablet by mouth three times daily. - aspirin, enteric coated (ASPIRIN, ENTERIC COATED) 325 mg EC tablet Take 1 tablet by mouth twice daily. - acetaminophen (TYLENOL) 500 mg tablet Take 2 tablets by mouth every 8 hours. Taper down and off as pain subsides - bisacodyl EC (DULCOLAX) 5 mg EC tablet Take 2 tablets by mouth once daily. Take regularly when on narcotics, Take as needed for constipation when narcotics completed - docusate sodium (COLACE) 100 mg capsule Take 1 capsule by mouth twice daily. Take regularly when on narcotics, Take as needed for constipation when narcotics completed - therapeutic multivitamin-minerals (THERA-M PLUS) 9 mg iron-400 mcg tablet Take 1 tablet by mouth once daily. - ondansetron (ZOFRAN) 4 mg tablet Take 1 tablet by mouth every 8 hours as needed for nausea/vomiting. - hydroCHLOROthiazide (HYDRODIURIL, ESIDRIX) 12.5 mg tablet Take 12.5 mg by mouth once daily. - lisinopril (ZESTRIL, PRINIVIL) 20 mg tablet Take 20 mg by mouth once daily. Normal [facility] CNTHERAPYon 06-19-2021 CNTHERAPY OT/PT/Speech Visit (PTWS) RAMON ALVES ([id number]) 1965 M Date Time Provider Department 06/19/21 5:15 PM ERLINDA JULIO PTWS Date Time Provider Department Center 06/19/2021 5:15 PM [id number], NANCY PTWS Buzz Sheppard Reason for Visit: Physical Therapy [503] Visit Diagnosis:Status post total knee replacement, left [Z96.652] Allergies As of Date: 06/19/2021 (No Known Allergies) Date Reviewed: 05/30/2021 Reviewed by: Ginger Lopes RN - Fully Assessed Prescriptions as of 06/20/2021 - traMADol (ULTRAM) 50 mg tablet Take 1-2 tablets by mouth every 8 hours as needed for pain. for pain. - zolpidem (AMBIEN) 5 mg tablet 1 tablet at night. May repeat 1 hour later. - nabumetone (RELAFEN) 750 mg tablet Take 750 mg by mouth once daily. - baclofen (LIORESAL) 10 mg tablet Take 1 tablet by mouth three times daily. - aspirin, enteric coated (ASPIRIN, ENTERIC COATED) 325 mg EC tablet Take 1 tablet by mouth twice daily. - acetaminophen (TYLENOL) 500 mg tablet Take 2 tablets by mouth every 8 hours. Taper down and off as pain subsides - bisacodyl EC (DULCOLAX) 5 mg EC tablet Take 2 tablets by mouth once daily. Take regularly when on narcotics, Take as needed for constipation when narcotics completed - docusate sodium (COLACE) 100 mg capsule Take 1 capsule by mouth twice daily. Take regularly when on narcotics, Take as needed for constipation when narcotics completed - therapeutic multivitamin-minerals (THERA-M PLUS) 9 mg iron-400 mcg tablet Take 1 tablet by mouth once daily. - ondansetron (ZOFRAN) 4 mg tablet Take 1 tablet by mouth every 8 hours as needed for nausea/vomiting. - hydroCHLOROthiazide (HYDRODIURIL, ESIDRIX) 12.5 mg tablet Take 12.5 mg by mouth once daily. - lisinopril (ZESTRIL, PRINIVIL) 20 mg tablet Take 20 mg by mouth once daily. Normal [facility] CNTHERAPYon 06-12-2021 CNTHERAPY OT/PT/Speech Visit (PTWS) NAHUMRAMON JJ ([id number]) 1965 M Date Time Provider Department 06/12/21 4:30 PM ERLINDA JULIO Date Time Provider Department Center 06/12/2021 4:30 PM [id number] JULIO Reason for Visit: Physical Therapy [503] Visit Diagnosis:Status post total knee replacement, left [Z96.652] Allergies As of Date: 06/12/2021 (No Known Allergies) Date Reviewed: 05/30/2021 Reviewed by: Ginger Lopes RN - Fully Assessed Prescriptions as of 06/13/2021 - traMADol (ULTRAM) 50 mg tablet Take 1-2 tablets by mouth every 8 hours as needed for pain. for pain. - zolpidem (AMBIEN) 5 mg tablet 1 tablet at night. May repeat 1 hour later. - nabumetone (RELAFEN) 750 mg tablet Take 750 mg by mouth once daily. - baclofen (LIORESAL) 10 mg tablet Take 1 tablet by mouth three times daily. - aspirin, enteric coated (ASPIRIN, ENTERIC COATED) 325 mg EC tablet Take 1 tablet by mouth twice daily. - acetaminophen (TYLENOL) 500 mg tablet Take 2 tablets by mouth every 8 hours. Taper down and off as pain subsides - bisacodyl EC (DULCOLAX) 5 mg EC tablet Take 2 tablets by mouth once daily. Take regularly when on narcotics, Take as needed for constipation when narcotics completed - docusate sodium (COLACE) 100 mg capsule Take 1 capsule by mouth twice daily. Take regularly when on narcotics, Take as needed for constipation when narcotics completed - therapeutic multivitamin-minerals (THERA-M PLUS) 9 mg iron-400 mcg tablet Take 1 tablet by mouth once daily. - ondansetron (ZOFRAN) 4 mg tablet Take 1 tablet by mouth every 8 hours as needed for nausea/vomiting. - hydroCHLOROthiazide (HYDRODIURIL, ESIDRIX) 12.5 mg tablet Take 12.5 mg by mouth once daily. - lisinopril (ZESTRIL, PRINIVIL) 20 mg tablet Take 20 mg by mouth once daily. Normal [facility] CNTHERAPYon 06-10-2021 CNTHERAPY OT/PT/Speech Visit (PTWS) RAMON ALVES ([id number]) 1965 M Date Time Provider Department 06/10/21 8:30 AM ERLINDA JULIO PTWS Date Time Provider Department Center 06/10/2021 8:30 AM [id number], NANCY PTWS Buzz Sheppard Reason for Visit: Physical Therapy [503] Visit Diagnosis:Status post total knee replacement, left [Z96.652] Allergies As of Date: 06/10/2021 (No Known Allergies) Date Reviewed: 05/30/2021 Reviewed by: Ginger Lopes RN - Fully Assessed Prescriptions as of 06/10/2021 - traMADol (ULTRAM) 50 mg tablet Take 1-2 tablets by mouth every 8 hours as needed for pain. for pain. - zolpidem (AMBIEN) 5 mg tablet 1 tablet at night. May repeat 1 hour later. - nabumetone (RELAFEN) 750 mg tablet Take 750 mg by mouth once daily. - baclofen (LIORESAL) 10 mg tablet Take 1 tablet by mouth three times daily. - aspirin, enteric coated (ASPIRIN, ENTERIC COATED) 325 mg EC tablet Take 1 tablet by mouth twice daily. - acetaminophen (TYLENOL) 500 mg tablet Take 2 tablets by mouth every 8 hours. Taper down and off as pain subsides - bisacodyl EC (DULCOLAX) 5 mg EC tablet Take 2 tablets by mouth once daily. Take regularly when on narcotics, Take as needed for constipation when narcotics completed - docusate sodium (COLACE) 100 mg capsule Take 1 capsule by mouth twice daily. Take regularly when on narcotics, Take as needed for constipation when narcotics completed - therapeutic multivitamin-minerals (THERA-M PLUS) 9 mg iron-400 mcg tablet Take 1 tablet by mouth once daily. - ondansetron (ZOFRAN) 4 mg tablet Take 1 tablet by mouth every 8 hours as needed for nausea/vomiting. - hydroCHLOROthiazide (HYDRODIURIL, ESIDRIX) 12.5 mg tablet Take 12.5 mg by mouth once daily. - lisinopril (ZESTRIL, PRINIVIL) 20 mg tablet Take 20 mg by mouth once daily. Normal [facility] CNTHERAPYon 06-05-2021 CNTHERAPY OT/PT/Speech Visit (PTWS) RAMON ALVES ([id number]) 1965 M Date Time Provider Department 06/05/21 3:00 PM KATHY STEPHENS Date Time Provider Department Center 06/05/2021 3:00 PM [id number] STEPHENS Reason for Visit: Physical Therapy [503] Visit Diagnosis:Status post total knee replacement, left [Z96.652] Allergies As of Date: 06/05/2021 (No Known Allergies) Date Reviewed: 05/30/2021 Reviewed by: Ginger Lopes RN - Fully Assessed Prescriptions as of 06/05/2021 - traMADol (ULTRAM) 50 mg tablet Take 1-2 tablets by mouth every 8 hours as needed for pain. for pain. - zolpidem (AMBIEN) 5 mg tablet 1 tablet at night. May repeat 1 hour later. - nabumetone (RELAFEN) 750 mg tablet Take 750 mg by mouth once daily. - baclofen (LIORESAL) 10 mg tablet Take 1 tablet by mouth three times daily. - aspirin, enteric coated (ASPIRIN, ENTERIC COATED) 325 mg EC tablet Take 1 tablet by mouth twice daily. - acetaminophen (TYLENOL) 500 mg tablet Take 2 tablets by mouth every 8 hours. Taper down and off as pain subsides - bisacodyl EC (DULCOLAX) 5 mg EC tablet Take 2 tablets by mouth once daily. Take regularly when on narcotics, Take as needed for constipation when narcotics completed - docusate sodium (COLACE) 100 mg capsule Take 1 capsule by mouth twice daily. Take regularly when on narcotics, Take as needed for constipation when narcotics completed - therapeutic multivitamin-minerals (THERA-M PLUS) 9 mg iron-400 mcg tablet Take 1 tablet by mouth once daily. - ondansetron (ZOFRAN) 4 mg tablet Take 1 tablet by mouth every 8 hours as needed for nausea/vomiting. - hydroCHLOROthiazide (HYDRODIURIL, ESIDRIX) 12.5 mg tablet Take 12.5 mg by mouth once daily. - lisinopril (ZESTRIL, PRINIVIL) 20 mg tablet Take 20 mg by mouth once daily. Normal [facility] CNTHERAPYon 06-03-2021 CNTHERAPY OT/PT/Speech Visit (PTWS) RAMON ALVES ([id number]) 1965 M Date Time Provider Department 06/03/21 7:45 AM ERLINDA JULIO PTTIEN Date Time Provider Department Center 06/03/2021 7:45 AM [id number], NANCY PTTIEN Sheppard Reason for Visit: Physical Therapy [503] Visit Diagnosis:Status post total knee replacement, left [Z96.652] Allergies As of Date: 06/03/2021 (No Known Allergies) Date Reviewed: 05/30/2021 Reviewed by: Ginger Lopes RN - Fully Assessed Prescriptions as of 06/03/2021 - nabumetone (RELAFEN) 750 mg tablet Take 750 mg by mouth once daily. - traMADol (ULTRAM) 50 mg tablet Take 1-2 tablets by mouth every 8 hours as needed for pain. for pain. - zolpidem (AMBIEN) 5 mg tablet 1 tablet at night. May repeat 1 hour later. - baclofen (LIORESAL) 10 mg tablet Take 1 tablet by mouth three times daily. - aspirin, enteric coated (ASPIRIN, ENTERIC COATED) 325 mg EC tablet Take 1 tablet by mouth twice daily. - acetaminophen (TYLENOL) 500 mg tablet Take 2 tablets by mouth every 8 hours. Taper down and off as pain subsides - bisacodyl EC (DULCOLAX) 5 mg EC tablet Take 2 tablets by mouth once daily. Take regularly when on narcotics, Take as needed for constipation when narcotics completed - docusate sodium (COLACE) 100 mg capsule Take 1 capsule by mouth twice daily. Take regularly when on narcotics, Take as needed for constipation when narcotics completed - therapeutic multivitamin-minerals (THERA-M PLUS) 9 mg iron-400 mcg tablet Take 1 tablet by mouth once daily. - ondansetron (ZOFRAN) 4 mg tablet Take 1 tablet by mouth every 8 hours as needed for nausea/vomiting. - hydroCHLOROthiazide (HYDRODIURIL, ESIDRIX) 12.5 mg tablet Take 12.5 mg by mouth once daily. - lisinopril (ZESTRIL, PRINIVIL) 20 mg tablet Take 20 mg by mouth once daily. Normal [facility] CNTHERAPYon 05-31-2021 CNTHERAPY OT/PT/Speech Visit (PTWS) RAMON ALVES ([id number]) 1965 M Date Time Provider Department 05/31/21 7:00 AM ERLINDA JULIO PTTIEN Date Time Provider Department Center 05/31/2021 7:00 AM [id number] JULIO Reason for Visit: Physical Therapy [503] Visit Diagnosis:Status post total knee replacement, left [Z96.652] Allergies As of Date: 05/31/2021 (No Known Allergies) Date Reviewed: 05/30/2021 Reviewed by: Ginger Lopes RN - Fully Assessed Prescriptions as of 05/31/2021 - nabumetone (RELAFEN) 750 mg tablet Take 750 mg by mouth once daily. - traMADol (ULTRAM) 50 mg tablet Take 1-2 tablets by mouth every 8 hours as needed for pain. for pain. - zolpidem (AMBIEN) 5 mg tablet 1 tablet at night. May repeat 1 hour later. - baclofen (LIORESAL) 10 mg tablet Take 1 tablet by mouth three times daily. - aspirin, enteric coated (ASPIRIN, ENTERIC COATED) 325 mg EC tablet Take 1 tablet by mouth twice daily. - acetaminophen (TYLENOL) 500 mg tablet Take 2 tablets by mouth every 8 hours. Taper down and off as pain subsides - bisacodyl EC (DULCOLAX) 5 mg EC tablet Take 2 tablets by mouth once daily. Take regularly when on narcotics, Take as needed for constipation when narcotics completed - docusate sodium (COLACE) 100 mg capsule Take 1 capsule by mouth twice daily. Take regularly when on narcotics, Take as needed for constipation when narcotics completed - therapeutic multivitamin-minerals (THERA-M PLUS) 9 mg iron-400 mcg tablet Take 1 tablet by mouth once daily. - ondansetron (ZOFRAN) 4 mg tablet Take 1 tablet by mouth every 8 hours as needed for nausea/vomiting. - hydroCHLOROthiazide (HYDRODIURIL, ESIDRIX) 12.5 mg tablet Take 12.5 mg by mouth once daily. - lisinopril (ZESTRIL, PRINIVIL) 20 mg tablet Take 20 mg by mouth once daily. [facility] GABYOVon 05-30-2021 CNOV Office Visit (GLORIA ) RAMON ALVES ([id number]) 1965 M Date Time Provider Department 05/30/21 11:30 AM RUDY GARCIA During your visit today, we recorded the following information about you: Ginger Lopes RN 05/30/2021 12:54 PM Signed DATE OF SURGERY/PROCEDURE: 04/18/2021 SURGERY/PROCEDURE: Left cemented total knee arthroplasty using a Jalen Persona size 7 posterior stabilized femoral component, size E tibial baseplate, 12 mm posterior stabilized tibial insert vitamin E, 35 mm patellar button, no lateral release. Patient comes in today for a 6 week post op check. Patient had a left total knee replacement and they present today on a cane. Patient states he has not been able to sleep due to pain 4/10 that is like a tight band above his knee, pain on the outer aspect and below the knee. He states it is continuous and sitting for too long is uncomfortable. He explains he tried the sleep aide we prescribed, but it only worked for two nights. Patient takes Nabumetone daily for his pain. Patient states incision looks good. No redness or drainage noted. They currently are in outpatient Physical therapy. X-ray obtained. Rudy Garcia PA-C 05/30/2021 12:54 PM Signed Ortho Knee Follow Up Note Narrative Referring Provider: Cheng Lagunas [id number] [facility] [id number] PCP: Juan Jose Agudelo MD ===== IMPRESSION/PLAN: ===== 56 year old s/p Left Total Knee Replacement completed on 04/18/2021. Orthopaedic Surgeries 04/18/2021 (6w) ARTHROPLASTY REPLACE JOINT TOTAL KNEE (Left) Cheng Lagunas MD; Delfino Rea MD - Posted PAIN EVALUATION 05/30/2021 1126 Pain Level: 4 Pain Location: Knee-Left Description: Tightness Duration Amount of Time: 6 Duration Units: Weeks Frequency: Continuous Intervention/Comfort measure: Medication IMPRESSION: At normal post-operative stage of recovery. Slow post-operative recovery. PLAN: Continue current conservative treatment. Patient Reassurance: Normal post-operative course discussed with patient. Patient reassured and supported. All questions answered. Follow up 3 weeks No X-Rays Needed Ramon Alves presents today for a a routine 1st post-op visit ACTIVE PROBLEM LIST Primary Osteoarthritis of Both Knees Essential Hypertension, Benign Class 1 Obesity Due to Excess Calories With Body Mass Index (Bmi) of 32.0 to 32.9 in Adult Primary Osteoarthritis of Left Knee Primary Osteoarthritis of Right Knee Status Post Total Knee Replacement, Left Status post op: BMI: There is no height or weight on file to calculate BMI. Post-operative recovery was complicated by uneventful/none. Readmission(s) since surgery (90 days post)? No ED Visits AND Hospitalizations - Last 180 days 04/18/21 Cheng Lagunas MD, EUSOP S/P total knee arthroplasty, left, Admission (Discharged) Patient rates their condition as improving. Does the patient still experience pain? see MIDAS Form Post Op discharge patient location: in home. Functional Assessment is as follows: has already started outpatient PT as of this visit. Functional difficulties: Interferes with sleep and Walking. Pain Medication: Narcotic and Non-narcotic Current Opioids Analgesic Opioid Agonists Start End traMADol (ULTRAM) 50 mg tablet 05/30/2021 Sig - Route: Take 1-2 tablets by mouth every 8 hours as needed for pain. for pain. - ORAL Currently Ambulating with: crutches Physical Therapy Data 05/21/2021 05/24/2021 05/28/2021 Surgical procedure L TKA L TKA L TKA Surgical procedure date 04/18/2021 - - AROM L knee extension - -2 0 AROM L knee flexion - 93 99 PROM L knee extension -3 - - Therapist that will oversee plan of care Kathy Stephens Prognosis - - - Frequency - - - Duration - - - Total number of visits - - - Planned treatment interventions - - - Plan for next visit Continue progressing quad strengthening, add TKE with band in standing. Progress quad strength and knee flexion and extension AROM. Progress quad strength and left knee flexion Provider signed - - - EXAM: POST OP KNEE Left Post-Operative Knee Ambulates with a: limp favoring the left. SKIN: Appropriate postop appearance. Range of motion is 0 degrees in extension and 90 degrees of flexion. Extension La degrees Pain with ROM:Yes There is Mild effusion. Mal-alignment: No Tender to the palpation of Medial femoral condyle and Lateral femoral condyle Neurovascular Status: Sensation Intact and Moves foot and ankle up AND down Stability:Anterior/Post erior- Yes, stable and Varus/Valgus- Yes, stable Quad strength: improving Imagin. Implants are well aligned. Implants are well fixed. Provider: Rudy Garcia PA-C Patient has been strugg (more content not included)... [facility] XR KNEE 3V AP/LAT/MERCHANT L Ton 05-30-2021 XR KNEE 3V AP/LAT/MERCHANT LT * * *Final Report* * * DATE OF EXAM: May 30 2021 10:50AM EOX [id number] - XR KNEE 3V AP/LAT/MERCHANT LT / PROCEDURE REASON: multiple diagnoses * * * * Physician Interpretation * * * * EXAMINATION / TECHNIQUE: XR KNEE 3V AP/LAT/MERCHANT LT HISTORY: 6 WEEK POST-OP IMAGING OF LEFT TKR. Primary osteoarthritis of both knees Primary osteoarthritis of left knee COMPARISON: 04/03/2021. RESULT: Status post left total knee arthroplasty with orthopedic hardware in standard position and alignment. There is no acute fracture. Bony alignment is preserved. IMPRESSION: Left knee arthroplasty without complication. Junior Art Director: [facility] Transcribe Date/Time: May 30 2021 11:59A Dictated by : BAYRON TEJEDA MD This examination was interpreted and the report reviewed and electronically signed by: BAYRON TEJEDA MD on May 30 2021 12:00PM EST [id number] [facility] XR Knee AP and Lateral and M erchantson 05-30-2021 IMPRESSION: Left knee arthroplasty without complication. Junior Art Director: PSC[facility] Transcribe Date/Time: May 30 2021 11:59A Dictated by : BAYRON TEJEDA MD This examination was interpreted and the report reviewed and electronically signed by: BAYRON TEJEDA MD on May 30 2021 12:00PM EST DIVISION OF RADIOLOGY * * *Final Report* * * DATE OF EXAM: May 30 2021 10:50AM EOX [id number] - XR KNEE 3V AP/LAT/MERCHANT LT / PROCEDURE REASON: multiple diagnoses * * * * Physician Interpretation * * * * EXAMINATION / TECHNIQUE: XR KNEE 3V AP/LAT/MERCHANT LT HISTORY: 6 WEEK POST-OP IMAGING OF LEFT TKR. Primary osteoarthritis of both knees Primary osteoarthritis of left knee COMPARISON: 04/03/2021. RESULT: Status post left total knee arthroplasty with orthopedic hardware in standard position and alignment. There is no acute fracture. Bony alignment is preserved. DIVISION OF RADIOLOGY Provider, Adri Niya Kramer - 05/30/2021 * * *Final Report* * * DATE OF EXAM: May 30 2021 10:50AM EOX [id number] - XR KNEE 3V AP/LAT/MERCHANT LT / PROCEDURE REASON: multiple diagnoses * * * * Physician Interpretation * * * * EXAMINATION / TECHNIQUE: XR KNEE 3V AP/LAT/MERCHANT LT HISTORY: 6 WEEK POST-OP IMAGING OF LEFT TKR. Primary osteoarthritis of both knees Primary osteoarthritis of left knee COMPARISON: 04/03/2021. RESULT: Status post left total knee arthroplasty with orthopedic hardware in standard position and alignment. There is no acute fracture. Bony alignment is preserved. IMPRESSION IMPRESSION: Left knee arthroplasty without complication. Junior Art Director: PSCB Transcribe Date/Time: May 30 2021 11:59A Dictated by : BAYRON TEJEDA MD This examination was interpreted and the report reviewed and electronically signed by: BAYRON TEJEDA MD on May 30 2021 12:00PM EST [facility] Radiology Study observation (narrative) [facility] XR Knee AP and Lateral and M erchantsOrdered By: [facility] Provider on 05-30-2021 [facility] CNTHERAPYon 05-28-2021 CNTHERAPY OT/PT/Speech Visit (PTWS) RAMON ALVES ([id number]) 1965 M Date Time Provider Department 05/28/21 12:30 PM ERLINDA JULIO PTTIEN Date Time Provider Department Center 05/28/2021 12:30 PM [id number] JULIO Reason for Visit: Physical Therapy [503] Visit Diagnosis:Status post total knee replacement, left [Z96.652] Allergies As of Date: 05/28/2021 (No Known Allergies) Date Reviewed: 04/18/2021 Reviewed by: Rupinder Villeda RN - Fully Assessed Prescriptions as of 05/28/2021 - zolpidem (AMBIEN) 5 mg tablet 1 tablet at night. May repeat 1 hour later. - baclofen (LIORESAL) 10 mg tablet Take 1 tablet by mouth three times daily. - aspirin, enteric coated (ASPIRIN, ENTERIC COATED) 325 mg EC tablet Take 1 tablet by mouth twice daily. - acetaminophen (TYLENOL) 500 mg tablet Take 2 tablets by mouth every 8 hours. Taper down and off as pain subsides - bisacodyl EC (DULCOLAX) 5 mg EC tablet Take 2 tablets by mouth once daily. Take regularly when on narcotics, Take as needed for constipation when narcotics completed - docusate sodium (COLACE) 100 mg capsule Take 1 capsule by mouth twice daily. Take regularly when on narcotics, Take as needed for constipation when narcotics completed - therapeutic multivitamin-minerals (THERA-M PLUS) 9 mg iron-400 mcg tablet Take 1 tablet by mouth once daily. - ondansetron (ZOFRAN) 4 mg tablet Take 1 tablet by mouth every 8 hours as needed for nausea/vomiting. - hydroCHLOROthiazide (HYDRODIURIL, ESIDRIX) 12.5 mg tablet Take 12.5 mg by mouth once daily. - lisinopril (ZESTRIL, PRINIVIL) 20 mg tablet Take 20 mg by mouth once daily. Normal [facility] CNTHERAPYon 05-24-2021 CNTHERAPY OT/PT/Speech Visit (PTWS) RAMON ALVES ([id number]) 1965 M Date Time Provider Department 05/24/21 7:00 AM ERLINDA JULIO PTWS Date Time Provider Department Center 05/24/2021 7:00 AM [id number], NANCY PTWS Buzz Sheppard Reason for Visit: Physical Therapy [503] Visit Diagnosis:Status post total knee replacement, left [Z96.652] Allergies As of Date: 05/24/2021 (No Known Allergies) Date Reviewed: 04/18/2021 Reviewed by: Rupinder Villeda RN - Fully Assessed Prescriptions as of 05/24/2021 - zolpidem (AMBIEN) 5 mg tablet 1 tablet at night. May repeat 1 hour later. - baclofen (LIORESAL) 10 mg tablet Take 1 tablet by mouth three times daily. - aspirin, enteric coated (ASPIRIN, ENTERIC COATED) 325 mg EC tablet Take 1 tablet by mouth twice daily. - acetaminophen (TYLENOL) 500 mg tablet Take 2 tablets by mouth every 8 hours. Taper down and off as pain subsides - bisacodyl EC (DULCOLAX) 5 mg EC tablet Take 2 tablets by mouth once daily. Take regularly when on narcotics, Take as needed for constipation when narcotics completed - docusate sodium (COLACE) 100 mg capsule Take 1 capsule by mouth twice daily. Take regularly when on narcotics, Take as needed for constipation when narcotics completed - therapeutic multivitamin-minerals (THERA-M PLUS) 9 mg iron-400 mcg tablet Take 1 tablet by mouth once daily. - ondansetron (ZOFRAN) 4 mg tablet Take 1 tablet by mouth every 8 hours as needed for nausea/vomiting. - hydroCHLOROthiazide (HYDRODIURIL, ESIDRIX) 12.5 mg tablet Take 12.5 mg by mouth once daily. - lisinopril (ZESTRIL, PRINIVIL) 20 mg tablet Take 20 mg by mouth once daily. Normal [facility] CNTHERAPYon 05-21-2021 CNTHERAPY OT/PT/Speech Visit (PTWS) RAMON ALVES ([id number]) 1965 M Date Time Provider Department 05/21/21 6:00 PM KATHY STEPHENS Date Time Provider Department Center 05/21/2021 6:00 PM [id number] STEPHENS Reason for Visit: Physical Therapy [503] Visit Diagnosis:Status post total knee replacement, left [Z96.652] Allergies As of Date: 05/21/2021 (No Known Allergies) Date Reviewed: 04/18/2021 Reviewed by: Rupinder Villeda RN - Fully Assessed Prescriptions as of 05/21/2021 - baclofen (LIORESAL) 10 mg tablet Take 1 tablet by mouth three times daily. - aspirin, enteric coated (ASPIRIN, ENTERIC COATED) 325 mg EC tablet Take 1 tablet by mouth twice daily. - acetaminophen (TYLENOL) 500 mg tablet Take 2 tablets by mouth every 8 hours. Taper down and off as pain subsides - bisacodyl EC (DULCOLAX) 5 mg EC tablet Take 2 tablets by mouth once daily. Take regularly when on narcotics, Take as needed for constipation when narcotics completed - docusate sodium (COLACE) 100 mg capsule Take 1 capsule by mouth twice daily. Take regularly when on narcotics, Take as needed for constipation when narcotics completed - therapeutic multivitamin-minerals (THERA-M PLUS) 9 mg iron-400 mcg tablet Take 1 tablet by mouth once daily. - ondansetron (ZOFRAN) 4 mg tablet Take 1 tablet by mouth every 8 hours as needed for nausea/vomiting. - hydroCHLOROthiazide (HYDRODIURIL, ESIDRIX) 12.5 mg tablet Take 12.5 mg by mouth once daily. - lisinopril (ZESTRIL, PRINIVIL) 20 mg tablet Take 20 mg by mouth once daily. Normal [facility] CNTHERAPYon 05-17-2021 CNTHERAPY OT/PT/Speech Visit (PTWS) RAMON ALVES ([id number]) 1965 M Date Time Provider Department 05/17/21 7:45 AM ERLINDA JULIO Date Time Provider Department Center 05/17/2021 7:45 AM [id number] JULIO Reason for Visit: Physical Therapy [503] Visit Diagnosis:Status post total knee replacement, left [Z96.652] Allergies As of Date: 05/17/2021 (No Known Allergies) Date Reviewed: 04/18/2021 Reviewed by: Rupinder Villeda RN - Fully Assessed Prescriptions as of 05/17/2021 - baclofen (LIORESAL) 10 mg tablet Take 1 tablet by mouth three times daily. - aspirin, enteric coated (ASPIRIN, ENTERIC COATED) 325 mg EC tablet Take 1 tablet by mouth twice daily. - acetaminophen (TYLENOL) 500 mg tablet Take 2 tablets by mouth every 8 hours. Taper down and off as pain subsides - bisacodyl EC (DULCOLAX) 5 mg EC tablet Take 2 tablets by mouth once daily. Take regularly when on narcotics, Take as needed for constipation when narcotics completed - docusate sodium (COLACE) 100 mg capsule Take 1 capsule by mouth twice daily. Take regularly when on narcotics, Take as needed for constipation when narcotics completed - therapeutic multivitamin-minerals (THERA-M PLUS) 9 mg iron-400 mcg tablet Take 1 tablet by mouth once daily. - ondansetron (ZOFRAN) 4 mg tablet Take 1 tablet by mouth every 8 hours as needed for nausea/vomiting. - hydroCHLOROthiazide (HYDRODIURIL, ESIDRIX) 12.5 mg tablet Take 12.5 mg by mouth once daily. - lisinopril (ZESTRIL, PRINIVIL) 20 mg tablet Take 20 mg by mouth once daily. Normal [facility] CNTHERAPYon 05-14-2021 CNTHERAPY OT/PT/Speech Visit (PTWS) RAMON ALVES ([id number]) 1965 M Date Time Provider Department 05/14/21 10:00 AM KATHY STEPHENS Date Time Provider Department Center 05/14/2021 10:00 AM [id number] STEPHENS [facility] Reason for Visit: PT Eval [747] Primary Visit Diagnosis:S/P total knee arthroplasty, left [Z96.652] Other Visit Diagnosis:Status post total knee replacement, left [Z96.652] Allergies As of Date: 05/14/2021 (No Known Allergies) Date Reviewed: 04/18/2021 Reviewed by: Rupinder Villeda RN - Fully Assessed Prescriptions as of 05/14/2021 - baclofen (LIORESAL) 10 mg tablet Take 1 tablet by mouth three times daily. - aspirin, enteric coated (ASPIRIN, ENTERIC COATED) 325 mg EC tablet Take 1 tablet by mouth twice daily. - acetaminophen (TYLENOL) 500 mg tablet Take 2 tablets by mouth every 8 hours. Taper down and off as pain subsides - bisacodyl EC (DULCOLAX) 5 mg EC tablet Take 2 tablets by mouth once daily. Take regularly when on narcotics, Take as needed for constipation when narcotics completed - docusate sodium (COLACE) 100 mg capsule Take 1 capsule by mouth twice daily. Take regularly when on narcotics, Take as needed for constipation when narcotics completed - therapeutic multivitamin-minerals (THERA-M PLUS) 9 mg iron-400 mcg tablet Take 1 tablet by mouth once daily. - ondansetron (ZOFRAN) 4 mg tablet Take 1 tablet by mouth every 8 hours as needed for nausea/vomiting. - hydroCHLOROthiazide (HYDRODIURIL, ESIDRIX) 12.5 mg tablet Take 12.5 mg by mouth once daily. - lisinopril (ZESTRIL, PRINIVIL) 20 mg tablet Take 20 mg by mouth once daily. [facility] (EUQM) RAMON ALVES ([id number]) 1965 Date Time Provider Department 04/19/21 BELÉN LANG During your visit today, we recorded the following information about you: Belén Lang RN 04/19/2021 4:05 PM Signed TOTAL JOINT COMPLETE CARE PROGRAM DISCHARGE FOLLOW-UP PHONE CALL Phone Call Date: 04/19/2021 Phone Call Time: 3:01 PM Date of Surgery: 04/18/2021 Procedure: Left Total Knee Replacement FOLLOW-UP QUESTIONS: 1. Did you receive adequate written instructions upon discharge? Yes 2. Do you have your follow-up appointment schedule? YES 3. Is your pain controlled with current medication regimen? Has not filled prescriptions as of this time. See Below. Current Pain level out of 10: 0 4. If you are able to see your incision, is there any increased drainage? NO 5. Any increased swelling? NO 6. Any increased redness? NO 7. If your dressing is still on, do you know when to remove it? Yes, Date: Dressing changed today as directed. New dressing applied and will be removed on 04/26/2021. 8. Do you have any of the following new/worsening symptoms? None 9. Have you contacted your surgeon's office about these symptoms? YES Called office due to [facility] unable to fill prescriptions, 10 days behind. Called office to transfer scripts to [facility]. [facility] will fill scripts by Thursday04/20/2021. Joint Class Participation: Yes 04/15/2021 1-3 PM. Education Completed: Yes Online or DVD Education Complete: NONE. SIGNATURE: Belén Lang RN PATIENT NAME: Ramon Alves DATE: April 19, 2021 TIME: 3:59 PM PAGER/CONTACT #: [phone] Allergies As of Date: 04/19/2021 (No Known Allergies) Date Reviewed: 04/18/2021 Reviewed by: Rupinder Villeda RN - Fully Assessed Reason for Visit: Surgical Followup [104] Prescriptions as of 04/19/2021 - baclofen (LIORESAL) 10 mg tablet Take 1 tablet by mouth three times daily. - aspirin, enteric coated (ASPIRIN, ENTERIC COATED) 325 mg EC tablet Take 1 tablet by mouth twice daily. - acetaminophen (TYLENOL) 500 mg tablet Take 2 tablets by mouth every 8 hours. Taper down and off as pain subsides - bisacodyl EC (DULCOLAX) 5 mg EC tablet Take 2 tablets by mouth once daily. Take regularly when on narcotics, Take as needed for constipation when narcotics completed - docusate sodium (COLACE) 100 mg capsule Take 1 capsule by mouth twice daily. Take regularly when on narcotics, Take as needed for constipation when narcotics completed - therapeutic multivitamin-minerals (THERA-M PLUS) 9 mg iron-400 mcg tablet Take 1 tablet by mouth once daily. - oxyCODONE IR (ROXICODONE) 5 mg immediate release tablet Take 1 tablet by mouth every 4 hours as needed for pain for up to 7 days. Taper down and off as pain subsides - ondansetron (ZOFRAN) 4 mg tablet Take 1 tablet by mouth every 8 hours as needed for nausea/vomiting. - hydroCHLOROthiazide (HYDRODIURIL, ESIDRIX) 12.5 mg tablet Take 12.5 mg by mouth once daily. - lisinopril (ZESTRIL, PRINIVIL) 20 mg tablet Take 20 mg by mouth once daily. Problem List As Of Date 04/19/2021 Noted Resolved Primary osteoarthritis of both knees [M17.0] 10/29/2020 Essential hypertension, benign [I10] 04/03/2021 Class 1 obesity due to excess calories with bod*04/03/2021 Primary osteoarthritis of left knee [M17.12] 04/03/2021 Primary osteoarthritis of right knee [M17.11] 04/03/2021 Encounter Status:Closed by BELÉN LANG on 04/19/21 [facility] OBSOLETEon 04-19-2021 OBSOLETE Refill (ORTHEU) RAMON ALVES ([id number]) 1965 M Date Time Provider Department 04/19/21 TRISH MENDOZA During your visit today, we recorded the following information about you: Angelika Rizvi RN 04/19/2021 8:43 AM Signed Patient is s/p TKR major orthopaedic surgery) and based upon prevailing medical standards of care their pain is unlikely to be controlled with the standard 30 MED average per day in the acute post operative phase. Patient has been educated on the goal to taper their use of this medication and alternatives to opioid pain management in this post operative period have been discussed and implemented as medically appropriate. Patient and their parents / partner / family was counseled on the risks of exceeding the recommended 30 MED average per day. The following medications were verbally ordered by Trish Mendoza PA-C Pending Prescriptions Disp Refills BACLOFEN 10 MG TABLET 30 tablet 1 Sig: Take 1 tablet by mouth three times daily. DOMINIC: No ASPIRIN 325 MG TABLET,DELAYED RELEASE 60 tablet 0 Sig: Take 1 tablet by mouth twice daily. DOMINIC: No ACETAMINOPHEN 500 MG TABLET Sig: Take 2 tablets by mouth every 8 hours. Taper down and off as pain subsides DOMINIC: No BISACODYL 5 MG TABLET,DELAYED RELEASE 60 tablet 0 Sig: Take 2 tablets by mouth once daily. Take regularly when on narcotics, Take as needed for constipation when narcotics completed DOMINIC: No DOCUSATE SODIUM 100 MG CAPSULE 60 capsule 0 Sig: Take 1 capsule by mouth twice daily. Take regularly when on narcotics, Take as needed for constipation when narcotics completed DOMINIC: No MULTIVITAMIN-IRON 9 MG-FOLIC ACID 400 MCG-CALCIUM AND MINERALS TABLET 30 tablet 0 Sig: Take 1 tablet by mouth once daily. DOMINIC: No OXYCODONE 5 MG TABLET 42 tablet 0 Sig: Take 1 tablet by mouth every 4 hours as needed for pain for up to 7 days. Taper down and off as pain subsides ANTONIO Class: C-II DOMINIC: No ONDANSETRON HCL 4 MG TABLET 9 tablet 0 Sig: Take 1 tablet by mouth every 8 hours as needed for nausea/vomiting. DOMINIC: No Allergies As of Date: 04/19/2021 (No Known Allergies) Date Reviewed: 04/18/2021 Reviewed by: Rupinder Villeda RN - Fully Assessed Reason for Visit: Refill Request [94] Visit Diagnosis:S/P total knee arthroplasty, left [Z96.652] Order(s):baclofen (LIORESAL) 10 mg tabletTake 1 tablet by mouth three times daily.Disp: 30 tabletRfl: 1 aspirin, enteric coated (ASPIRIN, ENTERIC COATED) 325 mg EC tabletTake 1 tablet by mouth twice daily.Disp: 60 tabletRfl: 0 acetaminophen (TYLENOL) 500 mg tabletTake 2 tablets by mouth every 8 hours. Taper down and off as pain subsidesDisp: 90 tabletRfl: 1 [START ON 04/20/2021] bisacodyl EC (DULCOLAX) 5 mg EC tabletTake 2 tablets by mouth once daily. Take regularly when on narcotics, Take as needed for constipation when narcotics completedDisp: 60 tabletRfl: 0 docusate sodium (COLACE) 100 mg capsuleTake 1 capsule by mouth twice daily. Take regularly when on narcotics, Take as needed for constipation when narcotics completedDisp: 60 capsuleRfl: 0 therapeutic multivitamin-minerals (THERA-M PLUS) 9 mg iron-400 mcg tabletTake 1 tablet by mouth once daily.Disp: 30 tabletRfl: 0 oxyCODONE IR (ROXICODONE) 5 mg immediate release tabletTake 1 tablet by mouth every 4 hours as needed for pain for up to 7 days. Taper down and off as pain subsidesDisp: 42 tabletRfl: 0 ondansetron (ZOFRAN) 4 mg tabletTake 1 tablet by mouth every 8 hours as needed for nausea/vomiting.Disp: 9 tabletRfl: 0 Prescriptions as of 04/19/2021 - baclofen (LIORESAL) 10 mg tablet Take 1 tablet by mouth three times daily. - aspirin, enteric coated (ASPIRIN, ENTERIC COATED) 325 mg EC tablet Take 1 tablet by mouth twice daily. - acetaminophen (TYLENOL) 500 mg tablet Take 2 tablets by mouth every 8 hours. Taper down and off as pain subsides - bisacodyl EC (DULCOLAX) 5 mg EC tablet Take 2 tablets by mouth once daily. Take regularly when on narcotics, Take as needed for constipation when narcotics completed - docusate sodium (COLACE) 100 mg capsule Take 1 capsule by mouth twice daily. Take regularly when on narcotics, Take as needed for constipation when narcotics completed - therapeutic multivitamin-minerals (THERA-M PLUS) 9 mg iron-400 mcg tablet Take 1 tablet by mouth once daily. - oxyCODONE IR (ROXICODONE) 5 mg immediate release tablet Take 1 tablet by mouth every 4 hours as needed for pain for up to 7 days. Taper down and off as pain subsides - ondansetron (ZOFRAN) 4 mg tablet Take 1 tablet by mouth every 8 hours as needed for nausea/vomiting. - hydroCHLOROthiazide (HYDRODIURIL, ESIDRIX) 12.5 mg tablet Take 12.5 mg by mouth once daily. - lisinopril (ZESTRIL, PRINIVIL) 20 mg tablet Take 20 mg by mouth once daily. Problem List As Of Date 04/19/2021 Noted Resolved Primary osteoarthritis of both kne (more content not included)... Normal [facility] ANES POSTPROC EVALon 021 ANES POSTPROC EVAL HNO ID: [id number] Author: Celestino Michelle MD Service: Anesthesiology Author Type: Physician Type: Anesthesia Postprocedure Evaluation Filed: 04/18/2021 12:58 PM Note Text: POST ANESTHESIA EVALUATION NOTE : 1965 Procedure Summary Date: 04/18/21 Room / Location: [facility] OR09 / [facility] OR Anesthesia Start: 737 Anesthesia Stop: 930 Procedure: ARTHROPLASTY REPLACE JOINT TOTAL KNEE (Left Knee) Diagnosis: Primary osteoarthritis of left knee (Primary osteoarthritis of left knee [M17.12]) Surgeons: Cheng Lagunas MD Responsible Provider: Celestino Michelle MD Anesthesia Type: spinal ASA Status: 3 Anesthesia Type: spinal Last vitals Vitals Value Taken Time BP 147/85 04/18/21 1215 Temp 36.4 ?C (97.5 ?F) 04/18/21 1215 Pulse 73 04/18/21 1215 Resp 18 04/18/21 1215 SpO2 97 % 04/18/21 1215 Post Anesthesia Patient Status Patient Evaluation: PACU. PACU/ICU Patient Condition: stable. Neurological Status: aware and responsive. Pulmonary Status: breathing comfortably on supplemental oxygen Airway Control: returned to baseline unsupported. Cardiovascular Status: stable. Pain Management: clinically adequate Postoperative Hydration: acceptable. Intraoperative Events: no significant anesthesia events Post Operative Nausea/Vomiting Status: no significant post operative nausea or vomiting Anesthetic Observations: Recommendation: continue current plan of care. Anesthesia Observations No Documentation SIGNATURE: Celestino Michelle MD PATIENT NAME: Ramon Alves DATE: April 18, 2021 TIME: 12:58 PM CSN: [id number] [facility] ANES PRE-OPon 04-18-2021 ANES PRE-OP HNO ID: [id number] Author: Celestino Michelle MD Service: Anesthesiology Author Type: Physician Type: Anesthesia Preprocedure Evaluation Filed: 04/18/2021 12:58 PM Note Text: ANESTHESIOLOGY DAY OF SURGERY NOTE : 1965 Procedure Information Date/Time: 04/18/2135 Procedure: ARTHROPLASTY REPLACE JOINT TOTAL KNEE (Left Knee) - [facility] Jalen Staci Durán poly Same day discharge Location: OR09 / OR Surgeons: Cheng Lagunas MD Estimated body mass index is 32.03 kg/m? as calculated from the following: Height as of 10/29/20: 169.5 cm (5' 6.75). Weight as of 04/03/21: 92.1 kg (203 lb). Most recent hematocrit and potassium results: Hematocrit 47.9 04/05/2021 Potassium 4.1 04/05/2021 Relevant Problems CARDIO (+) Essential hypertension, benign I - PHYSICAL EVALUATION AIRWAY Patient intubated: No. Tracheostomy tube not present Mallampati: III. TM distance: >3 FB. Neck ROM: full ROM without neurological symptoms. Mouth opening: adequate. Short neck: no. Thick neck: no DENTAL Dental findings: teeth intact. Additional exam findings: yes. CARDIOVASCULAR Normal cardiovascular observations. PULMONARY Normal pulmonary observations. ABDOMINAL Normal abdominal observations. II - ANESTHESIA PLAN ASA Score: 3 Anesthetic Plan: spinal The patient is not a current smoker. NPO Status: adequate Monitoring plan: standard ASA. Postoperative analgesic plan: parenteral or oral opioids, multimodal analgesia and peripheral nerve block. Anesthetic Risks, Benefits, Alternatives, Personnel Discussed. Consent obtained from: patient.Patient / Surrogate agrees to blood products: Yes DNR status not reviewed with patient and/or family prior to surgery. Significant changes in the patient condition since the History and Physical, not otherwise documented in primary service progress note: no. Potential Anesthesia issues that may suggest increased risk of complications or contraindication to planned procedure: potential difficult intubation. Vitals Value Taken Time BP 152/95 04/18/2134 Pulse 66 04/18/21533 Resp 16 04/18/2134 Temp 36.5 ?C (97.7 ?F) 04/18/21533 SpO2 98 % 04/18/21533 Facility-Administered Medications as of 04/18/2021 Medication Dose Route Frequency - lidocaine 10 mg/mL (1 %) 1-2 mg injection (XYLOCAINE) 0.1-0.2 mL INTRADERMAL PRN - lactated ringers iv infusion 5-30 mL/hr INTRAVENOUS CONTINUOUS - ceFAZolin iv piggyback 2 g in D5W (iso-osmotic) 100 mL (ANCEF) 2 g INTRAVENOUS Pre-Op Once - acetaminophen 1,000 mg tab(s) (TYLENOL) 1,000 mg ORAL ONCE Outpatient Medications as of 04/18/2021 Medication Sig - hydroCHLOROthiazide (HYDRODIURIL, ESIDRIX) 12.5 mg tablet Take 12.5 mg by mouth once daily. - lisinopril (ZESTRIL, PRINIVIL) 20 mg tablet Take 20 mg by mouth once daily. I have interviewed and examined the patient. I have reviewed the medical record and/or the pre-anesthesia evaluation, pertinent labs, and test results. This contains updated information obtained within 48 hours of Surgery/Procedure. SIGNATURE: KATERINA Silver PATIENT NAME: Ramon Alves DATE: April 18, 2021 TIME: 6:36 AM CSN: [id number] [facility] CASE MANAGEMon 04-18-2021 CASE MANAGEM HNO ID: [id number] Author: Noemi Flores RN Service: Case Management Author Type: Registered Nurse Type: Care Mgt Progress Note Filed: 04/18/2021 2:42 PM Note Text: CARE MANAGEMENT DISCHARGE NOTE SERVICE DATE: 04/18/2021 SERVICE TIME: 12:42 PM LOS: 0 days [place] of Choice Given: Yes Level of Care Discussed: Home Care Patient to ak home w. Home care. Prefers [facility], referral sent. Same Day surgery patient. SOC within 48hrs of dc Plan of care reviewed w. Patient Addm: 2:41 PM [facility] unable to accept as they dont service the area. Referral sent and accepted by [facility]. SOC scheduled for Sat. Spouse aware SIGNATURE: Noemi Flores RN PATIENT NAME: Ramon Alves DATE: April 18, 2021 TIME: 12:42 PM PAGER/CONTACT #: [phone] [facility] CONSULTon 04-18-2021 CONSULT HNO ID: [id number] Author: Chante Prescott APRN.SUPERINTENDENT GENERAL Service: General Internal Medicine Author Type: Nurse Practitioner Type: Consults Filed: 04/18/2021 12:50 PM Note Text: HISTORY AND PHYSICAL EXAMINATION PATIENT NAME: Ramon Alves SERVICE DATE: 04/18/2021 SERVICE TIME: 12:23 PM PRIMARY CARE PHYSICIAN: Juan Jose Agudelo MD REASON FOR CONSULT: perioperative managment CHIEF COMPLAINT: S/p left total knee arthroplasty HPI: This is a 56 year old male with history of HTN and obesity who presents with complaints of worsening left knee pain. Pain for two years. Was taking tumeric for pain, nothing else. Tried PT but did not help. No injections to the knee. Walked with a limp. States the knee would feel like its was going to give out but denies any falls. Was not using anything to ambulate. Xr shows severe medial compartment degenerative changes with [id number] articulation, subchondral sclerosis and marginal osteophytes. Presents today S/p left total knee arthroplasty w/ Dr. Lagunas. Consulted for medical management. Patient reports pain is controlled right now. PAST MEDICAL HISTORY: History reviewed. No pertinent past medical history. PAST SURGICAL HISTORY: PAST SURGICAL HISTORY Procedure Laterality Date - REVISE MEDIAN N/CARPAL TUNNEL SURG Right FAMILY HISTORY: FAMILY HISTORY Problem Relation Age of Onset - Heart disease Mother - GERD Mother - Diabetes Mother - Obesity Mother - Ischemic Heart Disease Father - Prostate Cancer Father - No Known Problems Sister - other (brain tumor) Brother SOCIAL HISTORY: Social History Tobacco Use - Smoking status: Never Smoker - Smokeless tobacco: Never Used Substance Use Topics - Alcohol use: Not Currently - Drug use: Not on file MEDICATIONS: Prior to Admission Medications hydroCHLOROthiazide (HYDRODIURIL, ESIDRIX) 12.5 mg tablet, Take 12.5 mg by mouth once daily., Disp: , Rfl: , 04/15/2021 lisinopril (ZESTRIL, PRINIVIL) 20 mg tablet, Take 20 mg by mouth once daily., Disp: , Rfl: , 04/15/2021 In-Patient Medications Current Facility-Administered Medications Medication Dose Route Frequency - lidocaine 10 mg/mL (1 %) 1-2 mg injection (XYLOCAINE) 0.1-0.2 mL INTRADERMAL PRN - lactated ringers iv infusion 5-30 mL/hr INTRAVENOUS CONTINUOUS - ceFAZolin iv piggyback 2 g in D5W (iso-osmotic) 100 mL (ANCEF) 2 g INTRAVENOUS q 8 HR - [START ON 04/19/2021] aspirin, enteric coated 325 mg tab(s) 325 mg ORAL BID - sodium chloride 0.9 % (flush) 3-5 mL (BD POSIFLUSH) 3-5 mL INTRAVENOUS q 12 H - NaCl 0.9% iv flush bag 20 mL INTRAVENOUS PRN - lactated ringers iv infusion 75 mL/hr INTRAVENOUS CONTINUOUS - HYDROmorphone 0.2 mg injection (DILAUDID) 0.2 mg INTRAVENOUS q 3 H PRN - oxyCODONE IR 5-10 mg tab(s) (ROXICODONE) 5-10 mg ORAL q 4 H PRN - acetaminophen 1,000 mg tab(s) (TYLENOL) 1,000 mg ORAL q 8 H - magnesium hydroxide 400 mg/5 mL 30 mL (MOM) 30 mL ORAL DAILY PRN - [START ON 04/20/2021] bisacodyl EC 10 mg tab(s) (DULCOLAX) 10 mg ORAL DAILY - aluminum-magnesium hydroxide-simethicone 200-200-20 mg/5 mL 30 mL (MAALOX,MYLANTA,MAG-AL PLUS) 30 mL ORAL q 2 H PRN - [START ON 04/19/2021] therapeutic multivitamin-minerals tablet (THERA-M PLUS) 1 tablet ORAL DAILY - [START ON 04/19/2021] ascorbic acid (vitamin C) 500 mg tab(s) (VITAMIN C) 500 mg ORAL BID w MEALS - [START ON 04/19/2021] docusate sodium 100 mg cap(s) (COLACE) 100 mg ORAL BID - lactated ringers iv infusion 100 mL/hr INTRAVENOUS CONTINUOUS - fentaNYL 50 mcg/mL 50 mcg injection (SUBLIMAZE) 50 mcg INTRAVENOUS q 10 MIN PRN - morphine 2 mg injection 2 mg INTRAVENOUS q 5 MIN PRN - ondansetron orally disintegrating 4 mg tab(s) (ZOFRAN ODT) 4 mg ORAL q 6 H PRN Or - ondansetron (PF) 4 mg injection (ZOFRAN) 4 mg INTRAVENOUS q 6 H PRN - prochlorperazine 10 mg injection (COMPAZINE) 10 mg INTRAVENOUS q 6 H PRN - hydrALAZINE 5 mg injection (APRESOLINE) 5 mg INTRAVENOUS PRN - meperidine (PF) 12.5 mg injection (DEMEROL) 12.5 mg INTRAVENOUS q 10 MIN PRN ALLERGIES: ALLERGIES No Known Allergies COMPLETE REVIEW OF SYSTEMS: GENERAL: No weight loss, malaise or fevers. HEENT: Negative for significant vision problems, hearing loss, hoarseness RESPIRATORY: Negative for cough, wheezing or shortness of breath. CARDIOVASCULAR: Negative for leg swelling, palpitations, orthopnea GI: Negative for abdominal discomfort, change in bowel habit, diarrhea, nausea, vomiting NEURO: Negative for headaches, syncope, paralysis, seizures or tremors. All other reviewed and negative other than HPI. PHYSICAL EXAM: 04/18/21 0930 04/18/21 0945 04/18/21 1000 04/18/21 1015 BP: 93/55 88/55 108/57 113/68 Pulse: 66 70 68 63 Resp: 17 16 22 20 Temp: TempSrc: SpO2: 98% 99% 99% 95% GEN: well appearing, in no acute distress. SKIN: skin color, texture, turgor normal. No rash. HEENT: no tenderness. PERRL. EOMI. Buccal mucosa moist. NECK: Supple, no adenopath (more content not included)... Normal [facility] Confirm Blood Typeon 021 ABO/RH(D) Positive Normal [facility] NURSING PROGon 04-18-2021 NURSING PROG HNO ID: [id number] Author: Belén Lang RN Service: Quality Author Type: Registered Nurse Type: Nursing Progress Note Filed: 04/18/2021 2:12 PM Note Text: Clt. is a Same Day Surgery. Clt. is awake in bed. Clt's spouse Chandrika is at the bedside and will be assisting the clt. at home when discharged. Pain level is a 0 at this time. Appetite is good for lunch today. No therapy as of this time. Clt. did attend [employer] Class here at [facility] and clt. did welcome the review of the s/s of infection and the s/s of a DVT. Provided the clt. with an Incentive Spirometer and 3 Island Dressings to go home with. Aware of the follow up phone call after discharge. Will continue to monitor. Normal [facility] NURSING PROG HNO ID: [id number] Author: Rupinder Villeda RN Service: Nursing Author Type: Registered Nurse Type: Nursing Progress Note Filed: 04/18/2021 12:05 PM Note Text: Left voice mails for Mike. PT paged. Chante's phone not accepting VM. Ill call back 1200 Leah Kovacic is at bedside Normal [facility] OPERATIVE NOon 04-18-2021 OPERATIVE NO HNO ID: [id number] Author: Cheng Lagunas MD Service: Orthopaedic Surgery Author Type: Physician Type: Operative Report Filed: 04/19/2021 3:12 PM Note Text: [facility] - Operative Report RAMON ALVES : 1965 AGE: 56. SEX: M PATIENT TYPE: [facility] LOC[facility]: [facility] ATTENDING PHYSICIAN: DES NUMBER: [id number] DATE OF SURGERY/PROCEDURE: 04/18/2021 INCISION/PROCEDURE START TIME: 8:18 INCISION CLOSE/PROCEDURE END TIME: 9:20 PREOPERATIVE DIAGNOSIS: Primary osteoarthritis, left knee. POSTOPERATIVE DIAGNOSIS: Primary osteoarthritis, left knee. SURGEON: Cheng Lagunas MD RESEARCH SOFTWARE ENGINEER: 1. Delfino Rea. 2. Lusi Bazan PA-C. SURGERY/PROCEDURE: Left cemented total knee arthroplasty using a Jalen Persona size 7 posterior stabilized femoral component, size E tibial baseplate, 12 mm posterior stabilized tibial insert vitamin E, 35 mm patellar button, no lateral release. ANESTHESIA: Spinal. DESCRIPTION OF PROCEDURE: With the patient under a spinal anesthetic, his left leg was prepped and draped. A midline incision was made followed by a medial subvastus approach. The patella was everted and the knee was flexed. Menisci and anterior cruciate ligament removed. The distal femur was cut at 5 degrees using an intramedullary guide. Anterior, posterior, and chamfer cuts made for a size 7 femoral component. The proximal tibia was cut with a 0-degree slope using an intramedullary guide. Posterior osteophytes and posterior cruciate ligament were removed. He had oevt-of-xftw osteoarthritis, worse in the medial compartment with large osteophytes in the posterior medial corner. The tibia was resurfaced with a size E baseplate. A box was cut for stabilized femoral component. We were satisfied with a 12 mm insert trial. The patella was resurfaced with a 35 mm button. No lateral release was necessary. All 3 components were cemented at once using 1 package of Simplex bone cement. The knee was thoroughly irrigated and closed in layers. No drain was used. ESTIMATED BLOOD LOSS: 200 mL. I did the entire procedure, except superficial closure by Luis Bazan PA-C. Cheng Lagunas MD PJB:[id number] /[id number] Normal [facility] THERAPY NTon 04-18-2021 THERAPY NT HNO ID: [id number] Author: Loulou Lovell OT/L Service: Occupational Therapy Author Type: Occupational Therapist Type: Therapy (PT/OT/Speech/Resp) Filed: 04/18/2021 3:29 PM Note Text: Occupational Therapy Evaluation SERVICE DATE: 04/18/2021 SERVICE TIME: 1352 to 1437 ROOM: [facility] ([facility] 08) Recommended Discharge Disposition: Home Recommended Discharge Disposition Comments: with PRN assist from spouse Anticipated Discharge Needs: Physical Assist at Home Physical Assist at Home for: Cleaning;Laundry;Meals; Shopping;Transportation Recommended Discharge Equipment: No equipment needs anticipated OT 6 Clicks Score: 20 Precautions/Activity Restrictions: Total Knee Replacement;Weight Bearing Restrictions;Fall Risk Extremity With Weight Bearing Restricted: Left Lower Extremity Left Lower Extremity Weight Bearing Status: WBAT Current Hospital Course: Pt is a 56 y/o male s/p L TKA performed on 04/18/[address] Lagunas Reason for Hospital Admission: s/p L TKA Relevant Past Medical History: HTN, R knee OA Response to Therapy Interventions: Good participation in activities Continue skilled needs due to: Functional impairment Occupational Therapy Problem List: Impaired Self Care;Functional Mobility Impairment Cognition/Communication Deficits Orientation Deficits: (AOx4) Treatment Interventions: Education;Self Care / Home Management;Functional Mobility Training Plan for next visit: Bathing training,Dressing training,Shower/tub transfer training Home Environment Patient Lives With: Spouse Assistance Available: 24 Hour Entry To Home: Stairs;With Rail Number Of Stairs Into Home: 3 Number Of Stairs To Bed/Bath: 7 Stairs to Bed/Bath with: Bilateral Rail Tub/Shower Type: walk in shower Laundry: spouse will complete Equipment Owned: Wheeled Walker;Cane;Crutch(es); Hand Held Shower;Grab Bars-Shower;Elevated Toilet Seat (built in shower seat) Prior Functional Level: Within Functional Limits Prior Functional Level Comments: IND ADLs, shares IADLs, (+) 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 Patient Report: I'll take it easy CURRENT FUNCTIONAL STATUS: Most recent performance Current Activities of Daily Living Assist Level Additional Information Feeding Independent Grooming Independent Bathing Upper Body Set Up;Additional Information clinical judgment based on UE ROM/strength Bathing Lower Body Minimal Assistance;Additional Information instruction for sitting to complete for safety Dressing Upper Body Set Up;Additional Information education for completing while seated for safety Dressing Lower Body Minimal Assistance;Additional Information assist for thoroughness donning L shoe, education for threading sx leg first, threading pants and underwear and standing once to arrange Toileting Stand By Assistance;Additional Information for safety only Instrumental Activities of Daily Living Assist Level Additional Information Meal/Beverage Prep Cleaning Laundry Medication Management with Strategies Functional Mobility Assist Level Additional Information Rolling Supine to Sit Supervision;Additional Information cues for safe technique Sit to Supine Supervision;Additional Information cues for safe technique Scooting Sit to Stand Supervision;Additional Information cues for safe hand placement and body positioning to/from EOB Stand to Sit Supervision;Additional Information cues for safe hand placement and body positioning to/from EOB Bed to Chair Toilet/Commode Shower (education and demo for WIS, handout provided) Functional Mobility Additional Information;Contact Guard Assistance Wheeled Walker CGA initially quickly progressing to SBA, min cues for walker management/safety Blank vargas indicate activity not attempted Learning/Educational Needs: Self Care;Safety;Precautions ;Plan of Care;Pain Management;Functional Activities/Mobility Goals for Plan of Care: Patient /Caregiver Goals: Go Home Goals: Patient will demonstrate progress with self-care, cognitive and/or coping needs identified to allow safe discharge to home with available support and/or physical assistance. Lower Body Bathing with: Modified Independent Lower Body Dressing with: Modified Independent Toilet Hygiene with: Modified Independent Toilet Transfer with: Modified Independent Shower Transfer with: Supervision Rehab Potential: Good Patient will be discontinued from Occupational Therapy when no further skilled needs are identified in this setting. PLAN: OT Frequency: 3 times per week Plan of Care developed with: Patient;Family TREATMENT INTERVENTIONS: Therapy Diagnosis: Reduced mobility-other;Decrease d activities of daily living (ADL);Muscle Weakness (generalized);General symptoms and signs-other Interventions Provided: Evaluation;Therapeutic Activity (32807);Self Longterm Management (17989) $ Evaluation-Low (58020) Billed Units: 1 unit Therapeut (more content not included)... Normal [facility] THERAPY NT HNO ID: [id number] Author: Gila Seay, PT Service: Physical Therapy Author Type: Physical Therapist Type: Therapy (PT/OT/Speech/Resp) Filed: 04/18/2021 2:23 PM Note Text: Physical Therapy Evaluation SERVICE DATE: 04/18/2021 SERVICE TIME: 1305 to 1352 ROOM: [facility] ([facility]) Recommended Discharge Disposition: Home PT Recommended Discharge Disposition Comments: Anticipate pt will discharge home with home PT per post- TKA protocol. Anticipated Discharge Needs: Physical Assist at Home Physical Assist at Home for: Cleaning;Laundry;Meals; Shopping;Transportation Recommended Discharge Equipment: No equipment needs anticipated (pt owns RW, cane, crutches) PT 6 Clicks Score: 24 Precautions/Activity Restrictions: Total Knee Replacement;Weight Bearing Restrictions;Fall Risk Extremity With Weight Bearing Restricted: Left Lower Extremity Left Lower Extremity Weight Bearing Status: WBAT Current Hospital Course: Pt is a 56 y/o male s/p L TKA performed on 04/18/[address] Lagunas Reason for Hospital Admission: s/p L TKA Relevant Past Medical History: HTN, R knee OA Response to Therapy Interventions: Good participation in activities,On-track to achieve discharge goals Continue skilled needs due to: Continued monitoring of vital signs during mobility required,Functional mobility/skill impairments,Safety concerns Physical Therapy Problem List: Education Deficit;Edema;Safety Deficits;Pain;Decreased Activity Tolerance;Decreased Range Of Motion;Decreased Strength;Functional Mobility Impairment;Balance Impaired;Sensory Deficit Treatment Interventions: Education;Energy Conservation Training;Joint Mobility;Strengthening; Functional Mobility Training;Balance Training;Modalities;Khalif ma Management;Pain Management Modalities: Ice Plan for next visit: Bed mobility,Car transfer training,Chair transfer training,Curb step training,Fall prevention,Edema management,Family instruction,Gait training,Exercise instruction/handout,Sit to Stand Transfers,Standing Balance,Walker Training Home Environment Patient Lives With: Spouse Assistance Available: 24 Hour Entry To Home: Stairs;With Rail Number Of Stairs Into Home: 3 Number Of Stairs To Bed/Bath: 7 Stairs to Bed/Bath with: Bilateral Rail Tub/Shower Type: walk in shower Laundry: spouse will complete Equipment Owned: Wheeled Walker;Cane;Crutch(es); Hand Held Shower;Grab Bars-Shower;Elevated Toilet Seat (built in shower seat) Prior Functional Level: Within Functional Limits Prior Functional Level Comments: IND ADLs, shares IADLs, (+) 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 Patient Report: Pt denies L knee pain at rest, pleasant and motivated to participate. CURRENT FUNCTIONAL STATUS: Most recent performance Current Functional Mobility Assist Level Additional Information Rolling Additional Information Verbally reviewed safe technique with use of pillow between LEs for comfort Supine to Sit Supervision;Additional Information With HOB elevated. Verbal cues for overall technique and sequencing. Sit to Supine Supervision;Additional Information With HOB elevated. Verbal cues for sequencing and positioning once supine. Scooting Independent;Additional Information to EOB while seated. No cues or assist needed. Sit to Stand Stand By Assistance;Additional Information Verbal cues for hand placement and equal WB through LEs. Performed from EOB (lowered). Stand to Sit Supervision;Additional Information Verbal cues for hand placement, L knee flexion as tolerated, and controlled descent Bed to Chair Toilet/Commode Gait Stand By Assistance;Additional Information Gait Device: Wheeled Walker Gait Distance (feet): 160' x 1 Verbal cues for safe use of RW, step sequencing, progression to step through pattern, and upright posture. Stairs Stand By Assistance;Additional Information Stairs Device: Other: See Comment (RW straddling practice step) Number of Stairs: 10 (6'' practice step x 10 consecutive trials) First 5 trials performed with use of (B) handrails of RW, second 5 trials performed with use of only unilateral handrail of RW. Verbal cues for step sequencing and upright posture. Verbally reviewed and demonstrated proper step sequencing with use of cane + rail when ascending and descending stairs. Curb Step Car Transfer Additional Information Verbally reviewed safe technique for car transfer and demonstrated safe technique at EOB. Pt voiced understanding and was able to repeat instructions. Instructed pt to have spouse nearby to provide supervision/assist as needed during car transfer after discharge. Blank vargas indicate activity not attempted Gait Deviations Left Lower Extremity: Foot clearance decreased;Heel strike during initial stance decreased;Push off during terminal stance decreased;Weight bearing decreased General Deviations/Observations : Sierra decreased;Flexed trunk posture;Step length decrea (more content not included)... Normal [facility] PreOp/PreProc COVIDon 2020 SARS-CoV-2 (COVID-19) RNA JABARI+probe Ql (Unsp spec) UPPER RESPIRATORY TRACT SWAB Normal [facility] Comment on above: Performed By: #### P OCOVD ####[facility] [place], [place] [phone] SARS-CoV-2 (COVID-19) RNA JABARI+probe Ql (Unsp spec) Negative for COVID19 (SARS CoV2) by RT-PCR or equivalent method. Normal Negative for COVID19 (SARS CoV2) by RT-PCR or equivalent method. [facility] Comment on above: Result Comment: This test was developed and its performance characteristics determined by [facility] [place]. This test has been authorized by FDA under an Emergency Use Authorization (EUA). This test has been validated in accordance with the FDA's Guidance Document Policy for Diagnostics Testing in Laboratories Certified to Perform High Complexity Testing under CLIA prior to Emergency use Authorization for Coronavirus Disease 2019 during the Public Health Emergency issued on July 09, 2019. Test performed by [facility], [facility] [place], [address], [place] [address]. Performed By: #### P OCOVD ####[facility] [place], [place] [phone] Nelli 04-12-2021 ELIZABETH Telephone (GLORIA) RAMON ALVES ([id number]) 1965 M Date Time Provider Department 04/12/21 ANGELIKA RIZVI During your visit today, we recorded the following information about you: Angelika Rizvi RN 04/12/2021 10:21 AM Signed Patient's , Chandrika, called on behalf of the patient to inform office that they do not wish to participate in PEPPER trial. Angelika Rizvi RN Allergies As of Date: 04/12/2021 (No Known Allergies) Date Reviewed: 04/03/2021 Reviewed by: Joanie Tay APRN.SUPERINTENDENT GENERAL - Fully Assessed Reason for Visit: Patient Update [1234] Prescriptions as of 04/15/2021 - hydroCHLOROthiazide (HYDRODIURIL, ESIDRIX) 12.5 mg tablet Take 12.5 mg by mouth once daily. - lisinopril (ZESTRIL, PRINIVIL) 20 mg tablet Take 20 mg by mouth once daily. Problem List As Of Date 04/12/2021 Noted Resolved Primary osteoarthritis of both knees [M17.0] 10/29/2020 Essential hypertension, benign [I10] 04/03/2021 Class 1 obesity due to excess calories with bod*04/03/2021 Primary osteoarthritis of left knee [M17.12] 04/03/2021 Primary osteoarthritis of right knee [M17.11] 04/03/2021 Encounter Status:Closed by [facility]EL[facility]VI [facility] EL[facility]ABETH [facility] (GLORIA) RAMON ALVES ([id number]) 1965 M Date Time Provider Department 04/09/21 CHENG LAGUNAS During your visit today, we recorded the following information about you: Cheng Lagunas MD 04/09/2021 10:05 AM Signed Phone encounter with the patient (and spouse where available) for pre-op discussion, consent. I also did his twin brother's left knee. History reviewed. X-rays reviewed. Full discussion. Elements of the informed consent were obtained and discussed with the patient, including the risks, benefits and anticipated outcomes of the procedure, treatment, or test; risks and benefits of alternatives to the procedure, treatment, or test; the roles and tasks of caregivers involved; materially significant equipment; and the consequences of declining the procedure, treatment, or test. Will proceed with surgery as scheduled. Time: 8 min As a result of the 07/26/19 order by [facility] Director Lilian Maria M.D. to cancel non-essential surgeries that would use PPE, unless special criteria are met, I have reviewed the clinical record for this patient and have determined that the scheduled procedure meets the criteria to go forward because there is a presence of severe symptoms causing an inability to perform activities of daily living. The patient was offered a surgery/procedure at a [facility]. The surgeon/proceduralist and patient have discussed in detail the risk of exposure to and/or potential harm posed by the COVID-19 virus with having a surgery/procedure at this time versus the risk of delaying the surgery/procedure. It is not possible to know either the risk of delaying the surgery or procedure or chance of getting an infection with perfect accuracy, but a joint decision was made between the patient and the surgeon/proceduralist to proceed at this time with the scheduled surgery/procedure as indicated on the consent form. PJB Allergies As of Date: 04/09/2021 (No Known Allergies) Date Reviewed: 04/03/2021 Reviewed by: Joanie Tay APRN.SUPERINTENDENT GENERAL - Fully Assessed Reason for Visit: Pre-Op Exam [87] Primary Visit Diagnosis:Primary osteoarthritis of left knee [M17.12] Prescriptions as of 04/09/2021 - mupirocin (BACTROBAN) 2 % nasal ointment Use in the nose twice daily. Apply to inside of nostril with cotton swab twice a day for 5 days prior to surgery. - hydroCHLOROthiazide (HYDRODIURIL, ESIDRIX) 12.5 mg tablet Take 12.5 mg by mouth once daily. - lisinopril (ZESTRIL, PRINIVIL) 20 mg tablet Take 20 mg by mouth once daily. Problem List As Of Date 04/09/2021 Noted Resolved Primary osteoarthritis of both knees [M17.0] 10/29/2020 Essential hypertension, benign [I10] 04/03/2021 Class 1 obesity due to excess calories with bod*04/03/2021 Primary osteoarthritis of left knee [M17.12] 04/03/2021 Primary osteoarthritis of right knee [M17.11] 04/03/2021 Encounter Status:Closed by CHENG LAGUNAS on 04/09/21 Normal [facility] Basic Metabolic Panlon 04-05 Anion gap [Moles/Vol] 13 mmol/L Normal 9-18 [facility] Calcium [Mass/Vol] 9.2 mg/dL Normal 8.5-10.2 [facility] Chloride [Moles/Vol] 103 mmol/L Normal 97-105 [facility] CO2 [Moles/Vol] 23 mmol/L Normal 22-30 [facility] Creatinine [Mass/Vol] 1.06 mg/dL Normal 0.73-1.22 [facility] eGFR- Amer. >60 Normal [facility] eGFR-All Other Races >60 Normal [facility] Comment on above: Result Comment: eGFR (Estimated GFR) Units of measure: mL/min/1.73 meters squared eGFR is derived from the reexpressed MDRD Study equation using the following parameters: serum creatinine, age, gender and race. The creatinine assay has been calibrated to be traceable to IDMS. An eGFR <60 mL/min/1.73m2 for >3 months is consistent with chronic kidney disease. Refer to KDOQI guidelines for clinical interpretation. In patients with unstable renal function, e.g. those with acute kidney injury, the eGFR may not accurately reflect actual GFR. Note: On 07/06/2021, the eGFR calculation will be updated to the NKF-ASN Task Force recommended 2020 CKD-EPI creatinine equation which does not include a race variable. For more information or to access a 2020 CKD-EPI calculator, visit the National Kidney Foundation website at kidney.org/professionals/kdoqi/gfr_calculator. Glucose [Mass/Vol] 86 mg/dL Normal 74-99 [facility] Comment on above: Result Comment: The [place] [employer] (ADA) provides guidance for cutoff values for fasting glucose and random glucose. The ADA defines fasting as no caloric intake for at least 8 hours. Fasting plasma glucose results between 100 to 125 mg/dL indicate increased risk for diabetes (prediabetes). Fasting plasma glucose results greater than or equal to 126 mg/dL meet the criteria for diagnosis of diabetes. In the absence of unequivocal hyperglycemia, results should be confirmed by repeat testing. In a patient with classic symptoms of hyperglycemia or hyperglycemic crisis, random plasma glucose results greater than or equal to 200 mg/dL meet the criteria for diagnosis of diabetes. Reference: Standards of Medical Care in Diabetes 2016, [place] [employer]. Diabetes Care. 2016.39(Suppl 1). Potassium [Moles/Vol] 4.1 mmol/L Normal 3.7-5.1 [facility] Sodium [Moles/Vol] 139 mmol/L Normal 136-144 [facility] Urea nitrogen [Mass/Vol] 25 mg/dL High 9- [facility] CBC and Differentialon 04-05 Abs Baso 0.06 k/uL Normal <0.11 [facility] Abs Custer 0.51 k/uL Normal <0.87 [facility] Abs Neut 4.44 k/uL Normal 1.45-7.50 [facility] Absolute nRBC <0.01 Normal <0.01 [facility] Basophils/100 WBC (Bld) 0.9 % Normal [facility] DTYPE Auto Diff Normal [facility] Eosinophils (Bld) [#/Vol] 0.11 10*3/uL Normal <0.46 [facility] Eosinophils/100 WBC (Bld) 1.6 % Normal [facility] Erythrocyte distribution width (RBC) [Ratio] 12.7 % Normal 11.5-15.0 [facility] Hematocrit (Bld) [Volume fraction] 47.9 % Normal 39.0-51.0 [facility] Hemoglobin (Bld) [Mass/Vol] 15.5 g/dL Normal 13.0-17.0 [facility] Lymphocytes (Bld) [#/Vol] 1.77 10*3/uL Normal 1.00-4.00 [facility] Lymphocytes/100 WBC (Bld) 25.7 % Normal [facility] MCH 29.4 pG Normal 26.0-34.0 [facility] MCHC (RBC) [Mass/Vol] 32.4 g/dL Normal 30.5-36.0 [facility] MCV (RBC) [Entitic vol] 90.7 fL Normal 80.0-100.0 [facility] Monocytes/100 WBC (Bld) 7.4 % Normal [facility] Neutrophils/100 WBC (Bld) 64.4 % Normal [facility] NRBCs 0.0 /100 WBC Normal 0 [facility] Platelet mean volume (Bld) [Entitic vol] 9.8 fL Normal 9.0-12.7 [facility] Platelets (Bld) [#/Vol] 325 10*3/uL Normal 150-400 [facility] RBC (Bld) [#/Vol] 5.28 10*6/uL Normal 4.20-6.00 [facility] WBC (Bld) [#/Vol] 6.89 10*3/uL Normal 3.70-11.00 [facility] CNPNon 04-05-2021 CNPN Telephone (DANIELITO) RAMON ALVES ([id number]) 1965 M Date Time Provider Department 04/05/21 JOANIE TAY During your visit today, we recorded the following information about you: Mio Toney RN 04/05/2021 9:29 AM Signed ----- Message from Joanie Tay APRN.SUPERINTENDENT GENERAL sent at 04/05/2021 6:18 AM EST ----- Regarding: missed pre-op labs Please have pt return RADHA, the lab only micah partial labs requested. Mio Toney RN 04/05/2021 9:33 AM Signed Message left on home and cell phone to have lab work done RADHA. My phone number provided for any questions. Mio Toney RN April 05, 2021 9:33 AM Allergies As of Date: 04/05/2021 (No Known Allergies) Date Reviewed: 04/03/2021 Reviewed by: Joanie Tay APRN.SUPERINTENDENT GENERAL - Fully Assessed Reason for Visit: Reminder To Have Labs Drawn [0643] Prescriptions as of 04/05/2021 - mupirocin (BACTROBAN) 2 % nasal ointment Use in the nose twice daily. Apply to inside of nostril with cotton swab twice a day for 5 days prior to surgery. - hydroCHLOROthiazide (HYDRODIURIL, ESIDRIX) 12.5 mg tablet Take 12.5 mg by mouth once daily. - lisinopril (ZESTRIL, PRINIVIL) 20 mg tablet Take 20 mg by mouth once daily. Problem List As Of Date 04/05/2021 Noted Resolved Primary osteoarthritis of both knees [M17.0] 10/29/2020 Essential hypertension, benign [I10] 04/03/2021 Class 1 obesity due to excess calories with bod*04/03/2021 Primary osteoarthritis of left knee [M17.12] 04/03/2021 Primary osteoarthritis of right knee [M17.11] 04/03/2021 Encounter Status:Closed by MIO TONEY on 04/05/21 Normal [facility] Type and SCR (30D)on 021 ABO/RH(D) Positive Normal [facility] Ferritinon 04-03-2021 Ferritin [Mass/Vol] 350.0 ng/mL Normal 30.3-565.7 [facility] Comment on above: Performed By: #### F ERR, IRON ####[facility] [address] [place], [place] [phone] HISTORY PHYSICALon HISTORY PHYSICAL HNO ID: [id number] Author: Joanie Tay APRN.ESTEFANI Service: ? Author Type: Nurse Practitioner Type: HANDP Filed: 04/03/2021 9:22 AM Note Text: HISTORY AND PHYSICAL EXAMINATION SERVICE DATE: 04/03/2021 SERVICE TIME: 8:56 AM PRIMARY CARE PHYSICIAN: Juan Jose Agudelo MD REASON FOR VISIT: Ramon Alves is a 56 year old male who is scheduled for Procedure(s) with comments: ARTHROPLASTY REPLACE JOINT TOTAL KNEE (Left) - [place] assist Jalen Persona Vit E poly at the request of Dr. Cheng Lagunas for consultation. My final recommendation will be communicated back to the requesting physician by way of shared medical record or letter. Subjective The patient has the following: ACTIVE PROBLEM LIST Primary Osteoarthritis of Both Knees Essential Hypertension, Benign Class 1 Obesity Due to Excess Calories With Body Mass Index (Bmi) of 32.0 to 32.9 in Adult COVID-19 Immunization Status Overdue - COVID-19 VACCINE (1) Overdue - never done No completion, postpone, frequency change, or communication history exists for this topic. CHIEF COMPLAINT: Pre-op exam HPI: BS is a 56 yo seen for PAC due to scheduled above surgery because of left knee OA. 10/29/2020 Rudy Garcia PA-C Ramon Alves is a 55 year old patient here for evaluation and management of bilateral knee pain. Ramon Alves has had progressive problems with the knee(s) multiple times a day over the past 2 year(s) interfering with activities which include exercise, walking, standing for prolonged periods of time, dressing and climbing stairs. The problem began limiting activities 1-6 months ago. ? Currently the pain in the joint is rated at 7 out of 10 with moderate activity. The pain is intermittent and is located along the inside aspect. The pain is described as severe. Relieving factors include ambulatory device and rest. There is no specific incident that brought about this pain. ? Ramon Alves has no additional complaints. ? FUNCTIONAL STATUS: Do heavy work around the house, such as scrubbing floors, lifting or moving heavy furniture (8.00 METs) ? Preoperative Ambulatory Status: Independent Community Distances Number of Entry Steps: 2 Bedroom Location: Second floor Bathroom Location: Second floor Caregiver Assistance: Consistent/Live-In (5-7 days/wk) Home Location: Up to 150 miles ? PREVIOUS TREATMENTS: Attempted Weight Loss Medical Treatments: OTC NSAIDS for 3 Months or Greater (Ibuprofen), RX NSAIDS for 3 Months or Greater (nabumetone (relafen)) Physical Therapy: Shoe Wear, Braces, Orthotics, etc. and Activities Modified ? REVIEW OF SYSTEMS: PAIN ASSESSMENT: See HPI. MUSCULOSKELETAL: See HPI. ? Surgical Risk Factors: HTN ? REVIEW OF SYSTEMS: General: No weight loss, malaise or fevers. Neurological: No history of TIA's, stroke, STEAM PRESS TENDER tumor, impaired sensorium, hemiplegia, paraplegia or quadraplegia. No neurological symptoms or problems. Respiratory: No history of current cough or dyspnea, or pneumonia in the past 6 weeks. No history of respiratory/pulmonary symptoms or problems. Cardiovascular: Positive for: hypertension (on rx) Negative for: anticoagulation therapy, arrhythmia, atrial fibrillation, CAD, chest pain, CHF, congenital heart defect, DVT/PE, hyperlipidemia, recent LA, murmur/valvular heart disease, open heart surgery and valve surgery. GI: No history of GI symptoms or problems. No history of esophageal varices, recent ascites, or ETOH greater than 2 drinks per day. : No history of dysuria, frequency or incontinence, stones or chronic kidney disease. No difficulty urinating, nocturia > 1 time per night or hematuria. Endocrine: No history of diabetes. Has not taken steroids within the past 30 days. No history of endocrinological symptoms or problems. Hematology: No history of bleeding or clotting disorder. Patient is not taking anti-coagulation or platelet medications. No history of hematological symptoms or problems. Oncology: No history of CA metastasis, chemo within 30 days, or radiotherapy within 90 days. No history of oncological symptoms or problems. Psych: No history of psychiatric symptoms or problems. Musculoskeletal: SEE HPI +right knee pain Skin: Negative for lesions, rash and itching. History reviewed. No pertinent past medical history. History reviewed. No pertinent surgical history. History reviewed. No pertinent family history. Social History Tobacco Use - Smoking status: Never Smoker - Smokeless tobacco: Never Used Substance Use Topics - Alcohol use: Not Currently - Drug use: Not on file Prior to Admission medications as of 04/03/21 0826 Medication Sig Last Dose Taking hydroCHLOROthiazide (HYDRODIURIL, ESIDRIX) 12.5 mg tablet Take 12.5 mg by mouth once daily. Taking Yes lisinopril (ZESTRIL, PRINIVIL) 20 mg tablet Take 20 mg by mouth once daily. Taking Yes mupirocin (BACTROBAN) 2 % nasal ointment U (more content not included)... Normal [facility] Iron and TIBCon 04-03-2021 Iron [Mass/Vol] 93 ug/dL Normal 41-186 [facility] Comment on above: Performed By: #### F ERR, IRON ####[facility] [place], [place] [phone] TIBC 374 ug/dL Normal 232-386 [facility] Comment on above: Performed By: #### F ERR, IRON ####[facility] [address] [place], [place] [phone] Transferrin Saturatn 25 % Normal 15-57 [facility] Comment on above: Performed By: #### F ERR, IRON ####[facility] [address] [place], [place] [phone] XR KNEE 4V AP/PA BOTH+LAT/ME R LTon 04-03-2021 XR KNEE 4V AP/PA BOTH+LAT/MICHAEL LT * * *Final Report* * * DATE OF EXAM: Apr 03 2021 8:16AM [id number] - XR KNEE 4V AP/PA BOTH+LAT/MICHAEL LT / PROCEDURE REASON: multiple diagnoses * * * * Physician Interpretation * * * * EXAMINATION: XR KNEE 4V AP/PA BOTH+LAT/MICHAEL LT CLINICAL HISTORY: chronic left knee pain Primary osteoarthritis of both knees Primary osteoarthritis of left knee Technique: XR KNEE 4V AP/PA BOTH+LAT/MICHAEL LT -- LEFT with 4 views on 4 images Comparison: 10/29/2020 RESULT: Severe medial compartment degenerative changes with [id number] articulation, subchondral sclerosis and marginal osteophytes. Varus alignment. Moderate patellofemoral degenerative changes with narrowing and prominent marginal osteophytes. No erosions or chondrocalcinosis. No joint effusion. IMPRESSION: Severe left knee osteoarthritis, progressed. No acute osseous findings. Junior Art Director: [facility] Transcribe Date/Time: Apr 03 2021 10:58A Dictated by : DANNY SMITH MD This examination was interpreted and the report reviewed and electronically signed by: DANNY SMITH MD on Apr 03 2021 10:59AM EST [id number] Normal [facility] CNCOon 02-19-2021 CNCO Letter Text Normal [facility] CNCOon 01-28-2021 CNCO Letter Text Normal [facility] CNPNon 12-12-2020 CNPN Telephone (Vision Critical) RAMON ALVES ([id number]) 1965 M Date Time Provider Department 12/12/20 ANGELIKA RIZVI During your visit today, we recorded the following information about you: Angelika Rizvi RN 12/12/2020 8:11 AM Signed LVM for TKR Sx with CB #. Angelika Rizvi RN Allergies As of Date: 12/12/2020 (No Known Allergies) Date Reviewed: 10/29/2020 Reviewed by: Patricia Grigsby Ma - Fully Assessed Reason for Visit: Schedule Surgery [1330] Prescriptions as of 12/12/2020 - hydroCHLOROthiazide (HYDRODIURIL, ESIDRIX) 12.5 mg tablet Take 12.5 mg by mouth once daily. - lisinopril (ZESTRIL, PRINIVIL) 20 mg tablet Take 20 mg by mouth once daily. Problem List As Of Date 12/12/2020 Noted Resolved Primary osteoarthritis of both knees [M17.0] 10/29/2020 Encounter Status:Closed by ANGELIKA RIZVI on 12/12/20 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 Castañeda HPH: Cardiac: No Hypertension: Yes- controlled with medication Lungs: No Kidneys: No DM: No DVT: No Smoking: No Alcohol: No Steroids (Solu-Medrol/Prednisone /Medrol dose pack): No Family History: Bleeding tendencies: No Blood Clots: No Anesthesia problems: No Height: 5'6.75 Weight 199 Estimated body mass index is 31.45 kg/m? as calculated from the following: Height as of this encounter: 169.5 cm (5' 6.75). Weight as of this encounter: 90.4 kg (199 lb 4.8 oz). Allergies and Current Medications have been reviewed and verified. Allergies to metal: No No past surgical history on file. No past medical history on file. Patricia Garcia PA-C 10/29/2020 1:25 PM Signed CONSULT ORTHOPAEDIC: KNEE PRIMARY CARE PHYSICIAN: Juan Jose Agudelo MD REFERRING PROVIDER: SELF ASSESSMENT AND PLAN Impression: Bilateral Knee Severe Degenerative Osteoarthritis, Primary Ramon Alves has radiograph and physical exam evidence of degenerative joint disease and wishes to consider options before making a decision for surgery. This patient appears to have sufficient symptoms to warrant surgical intervention and is an appropriate candidate for left Primary Total Knee Arthroplasty as evidenced by six months of unsuccessful non-operative treatment as outlined in the HPI below. This patient has the following risk factors: none We had a lengthy discussion regarding the risk and benefit of surgery, the alternatives, limitations and personnel involved. These included but were not limited to infection, persistent pain, instability, nerve injury, blood clots, and medical complications. We also discussed the pre-operative course, surgery itself and rehabilitation. Ani-operative blood management and transfusion issues were discussed, and options clearly outlined. The patient has not consented to the use of the banked allogenic blood if medically necessary. The patient has elected to schedule surgery at this time or intends to call the office with a surgical date. Shared decision making occurred while obtaining informed consent. The patient will be scheduled for a pre-operative education class at which time they will have their nasal swab completed and will be given CHG cloths along with the verbal and written instructions for their use. Patient has been instructed and has been scheduled or will call to schedule attendence in one of the total joint perioperative classes offered prior to proceeding with TKA The patient has been ordered: No orders placed today. CONSULTS: Patient does not require consults for optimization at this time. ACTIVE PROBLEM LIST Primary Osteoarthritis of Both Knees SUBJECTIVE CHIEF COMPLAINT: Knee Pain HPI: Ramon Alves is a 55 year old patient here for evaluation and management of bilateral knee pain. Ramon Alves has had progressive problems with the knee(s) multiple times a day over the past 2 year(s) interfering with activities which include exercise, walking, standing for prolonged periods of time, dressing and climbing stairs. The problem began limiting activities 1-6 months ago. Currently the pain in the joint is rated at 7 out of 10 with moderate activity. The pain is intermittent and is located along the inside aspect. The pain is described as severe. Relieving factors include ambulatory device and rest. There is no specific incident that brought about this pain. Ramon Alves has no additional complaints. FUNCTIONAL STATUS: Do heavy work around the house, such as scrubbing floors, lifting or moving heavy furniture (8.00 METs) Preoperative Ambulatory Status: Independent Community Distances Number of Entry Steps: 2 Bedroom Location: Second floor Bathroom Location: Second floor Caregiver Assistance: Consistent/Live-In (5-7 days/wk) Home Location: Up to 150 miles PREVIOUS TREATMENTS: Attempted Weight Loss Medical Treatments: OTC NSAIDS for 3 Months or Greater (Ibuprofen), RX NSAIDS for 3 Months or (more content not included)... Normal [facility] XR KNEE 4V AP/PA/LAT/MERCH B ILon 10-29-2020 XR KNEE 4V AP/PA/LAT/MERCH JEFFREY * * *Final Report* * * DATE OF EXAM: Oct 29 2020 11:15AM [id number] - XR KNEE 4V AP/PA/LAT/MERCH JEFFREY / PROCEDURE REASON: Pain * * * * Physician Interpretation * * * * EXAMINATION / TECHNIQUE: XR KNEE 4V AP/PA/LAT/MERCH JEFFREY HISTORY: BILATERAL KNEE PAIN FOR A COUPLE YEARS, NO KNOWN INJURY Pain COMPARISON: None. RESULT: No acute fracture or malalignment in either knee. Bilateral tricompartment osteoarthritis is moderate to severe in the medial compartments. 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 Right knee joint effusion. IMPRESSION: Bilateral tricompartment osteoarthritis, most severe in the medial compartments. Junior Art Director: [facility] Transcribe Date/Time: Oct 29 2020 11:58A Dictated by : BAYRON TEJEDA MD This examination was interpreted and the report reviewed and electronically signed by: BAYRON TEJEDA MD on Oct 29 2020 11:59AM EST [id number] Normal [facility] XR KNEE GENERAL 4V AP BOTH/P A BOTH/LAT/MERC BILATon 10-29-2020 [facility] Encounters Encounter Date Encounter Type Care Provider Facility Start: 10-08-2024 End: 10-08-[address] Anil Sánchez MD Work Phone: [facility] Work Phone: Start: 10-08-2024 End: 10-08-[address] Anil Sánchez MD -Laboratory Work Phone: Start: 10-08-2024 End: 10-08-[facility] Start: 04-23-2024 End: 04-23-2024 ambulatory [facility] Facility:[facility] Start: 10-20-2022 End: 10-20-2022 ambulatory [facility] Work Phone: Start: 10-20-2022 End: 10-20-2022 Patient encounter procedure [facility]-Yesi Lopez Start: 03-29-2022 End: 03-29-2022 ambulatory [facility] Work Phone: Start: 03-29-2022 End: 03-29-2022 Patient encounter procedure [facility]-Laboratory Start: 05-30-2021 End: 05-30-2021 Subsequent hospital visit by physician [facility] [place] [facility] Comment on above: Primary osteoarthrit is of both knees [M17.0] Start: 10-29-2020 End: 10-29-2020 Subsequent hospital visit by physician [facility] Work Phone: [facility]iology Comment on above: Pain [R52] Procedures Date Procedure Procedure Detail Performing Clinician Start: 10-08-2024 Free prostate specif ic antigen level Dr. Anil Sánchez MD Work Phone: Comment on above: [facility] Start: 10-08-2024 Prostate specific an tigen measurement Dr. Anil Sánchez MD Work Phone: Comment on above: [facility].According to the [place] [employer], Serum PSAshould decrease and remain at undetectable levels afterradical prostatectomy. The AUA defines biochemicalrecurrence as an initial PSA value 0.200 ng/mL or greaterfollowed by a subsequent confirmatory PSA value 0.200 ng/mLor greater. Values obtained with different assay methods orkits cannot be used interchangeably. Results cannot beinterpreted as absolute evidence of the presence or absenceof malignant disease. Start: 05-30-2021 Radiologic examinati on knee 3 views Rudy Garcia PA-C Work Phone: Start: 04-05-2021 Antibody screen Start: 10-29-2020 Radiologic exam knee complete 4/more views Rudy Garcia PA-C Work Phone: Plan of Treatment Date Care Activity Detail Author Start: 2038 RSV Vaccine (1 - 1-d ose 75+ series) RSV Vaccine (1 - 1-dose 75+ series) [facility] Start: 04-05-2024 Diabetes Screening Diabetes Screenin g [facility] Start: 01-10-2024 Covid-19 Vaccine ( season) Covid-19 Vaccine ( season) [facility] Start: 01-10-2024 Influenza vaccination Influenza Vacc ine (#1) [facility] Start: 01-09-2023 Influenza vaccination Influenza Vacc ine (#1) [facility] Start: 05-11-2022 Depression Assessment Depression Ass essment [facility] Start: 2018 Prostate Cancer Scre ening Discussion Prostate Cancer Screening Discussion [facility] Start: 2018 Prostate specific an tigen measurement Prostate Cancer Screening Discussion [facility] Start: 2013 Shingrix Vaccine (1 of 2) Shingrix V accine (1 of 2) [facility] Start: 2008 Cologuard (FIT-DNA) Cologuard (FIT-D NA) [facility] Start: 2008 Colonoscopy Colonoscopy [facility] Start: 2008 Colorectal Cancer Screening Colorectal Cancer Screening [facility] Start: [address] Colonography [facility] Start: 2008 Fecal Occult Blood Fecal Occult Bloo d [facility] Start: 2008 Screening for malign ant neoplasm of colon [facility] Start: 2008 Sigmoidoscopy Sigmoidoscopy [facility] Start: 1998 Lipid 1996 panel - S conor or Plasma Lipid Screening [facility] Start: 1998 Lipid panel Lipid Screening [facility] Start: 1982 Urine microalbumin profile DTa P,Tdap,Td Vaccine (1 - Tdap) [facility] Start: 1981 Annual PCP Team Box Sealing Machine Catcher osiel Disease Visit Annual PCP Team Chronic Disease Visit [facility] Start: 1981 Anxiety Screening Anxiety Screening [facility] Start: 1981 BP Controlled (<130/80) BP Controlle d (<130/80) [facility] Start: 1981 Depression Screening Depression Scre ening [facility] Start: 1981 Hepatitis C Screening Hepatitis C [facility] Start: 1981 Hepatitis C screening Hepatitis C [facility] Start: 1981 HIV Screening HIV Screening [facility] Start: 1981 HIV screening HIV Screening [facility] Start: 1965 Covid-19 Vaccine (#1) Covid-19 Vacci ne (#1) [facility] Payers Date Payer Category Payer Unknown [id number] 2024 Self-pay [id number] 2024 Unknown [id number] 2020 Unknown MMO [employer] PPO [id number] 2020-Present [phone] [address] [place] [address] PPO [id number] Unknown [facility] [id number] Unknown ANTHEM [id number] Unknown [id number] Unknown [id number] Social History Date Type Detail Facility Tobacco smoking stat [facility] Unknown if ever smoked [facility] Work Phone: Start: 1965 Sex Assigned At Male [facility] consumption unknown [facility] Start: 10-29-2020 End: 04-18-2021 History of Social function [facility] Start: 10-29-2020 End: 04-18-2021 Area Deprivation Index [facility] National Score (1-10 0), lower number is lower risk Not on file [facility] Start: 1965 Sex Assigned At Not on file [facility] Start: 09-29-2020 End: 05-27-2021 Exposure to SARS-CoV-2 (event) Not sure [facility] Start: 04-03-2021 [facility] Never smoked tobacco [facility] Start: 04-03-2021 Tobacco use and exposure Smoke less tobacco non-user [facility] Start: 04-18-2021 Alcoholic beverage intake Ex-drinker (finding) [facility] Medical Equipment Procedure Code Equipment Code Equipment Origin al Text Equipment Identifier Dates Cement Simplex P Bone Radiopaque Full Dose Sterile - [id number] Start: 04-18-2021 Component Person a 7 Standard Cocr Femoral Cemented Posterior - [id number] Start: 04-18-2021 Component 35mm A ll Poly Patellar Psn - [id number] Start: 04-18-2021 Surface 6-9 Ef Vivacit-E 12mm Articular Knee Left - [id number] Start: 04-18-2021 Baseplate Person a 5d E Tivanium Tibial Cemented Stem Knee Left - [id number] Start: 04-18-2021 Clinical Notes 10-29-2020 to 07-03-2021 Kathy Bojorquez, RT(R) - 05/30/2021 11:00 AM Kathy Medrano RT(R) - 10/29/2020 11:10 AM EDT Note Date & Type Note Facility 07-03-2021 Note HNO ID: [id number] Author: Kathy Stephens, PT Service: ? Author Type: Physical Therapist Type: Progress Notes Filed: 09/13/2021 1:28 PM Note Text: 09/13/2021 [facility] PHYSICAL THERAPY DISCONTINUANCE OF CARE Plan of Care Period: Start of Care Date: 05/14/21 Last Visit Date: 07/03/2021 Therapy Program: The following is a summary of the interventions provided for this episode of care; Therapeutic exercise, Neuromuscular re-education, Manual therapy, Therapeutic activities, Self-intermediate management, Gait training and Patient/Family/Caregiver Education Assessment: The following is the goal status: Goals for Episode of Care: created on 05/14/21 through 06/25/21 Goals updated on 07/03/2021 through 07/31/21 [place] in home exercise program. -- MET Patient will increase active ROM of L knee to 0-110 to allow pt to to improve postural alignment, to improve performance of ADLs, to improve gait mechanics / gait pattern and to decrease falls risks . -- MET Perform work activities as well as ADLs with decreased report of symptoms/pain in 6 weeks. -- MET Perform prolonged sitting or standing 1 hour or greater without pain. -- PROGRESSING, albe to stand x1 hour, difficulty with prolonged sitting. Patient will improve 5 time sit to stand to demonstrate improvement in functional lower extremity strength. -- MET, 15 reps without UE's. Improve postural awareness. -- MET Normal gait. -- MET Reciprocal stair negotiation. -- MET Patient will be able to correct postural deviations independently in order to allow for maintenance of proper alignment for 45 mins during treatment session. -- MET Patient will increase balance to 15 seconds for single limb stance on RLE and 15 seconds for single limb stance on LLE without UE support. -- MET Patient will demonstrate improved neuromuscular coordination as evidenced by improve function for basic self-care tasks, home management tasks, prior functional tasks and work tasks. -- MET Patient Goals: return to amb without AD, sitting and driving without limitation, and return to work activities -- MET Based on the most recent progress report, patient was progressing slower than expected toward functional goals based on home exercise program compliance, pain levels, documented subjective information on progress, documented objective information regarding ADL's, balance, flexibility, gait, independence in exercise, joint mobility, overall function, patient reported outcome measures, range of motion, strength and tissue tenderness and appointment compliance. Reason for Discontinuation of Care: Patient has not returned to therapy or scheduled additional follow-up appointments. Kathy Stephens, PT Episode Visit Count: 13 Therapist That Will Oversee The Plan Of Care: Kathy Stephens Start of Care Date: 05/14/21 Onset Date: 04/18/21 Plan of Care Certification Date: 06/26/21 Next Certification Due Date: 07/31/21 Patient Identified by Name and Date of : Yes REHABILITATION AND SPORTS THERAPY PHYSICAL THERAPY PROGRESS REPORT PLAN OF CARE UPDATE: Assessment: Ramon Alves demonstrates moderate improvement in rising from a chair, standing, walking, walking in the house, walking in the community, heavy exertion, physical activities, sleeping and driving and difficulty with sitting, stair negotiation, bending, squatting, working and driving. He has met most goals with the exception of knee flexion AROM. Patient continues to present with impairments in independence in exercise, joint mobility, overall function, range of motion, strength and tissue tenderness that interfere with sitting;bending;stair negotiation;kneeling;squatting;work ing . Current prognosis is Good due to: positive past response to therapy;within-session changes . He will benefit from continued skilled therapy services to meet the updated goals for this plan of care as noted below. Goals for Episode of Care: created on 05/14/21 through 06/25/21 Goals updated on 07/03/2021 through 07/31/21 [place] in home exercise program. -- MET Patient will increase active ROM of L knee to 0-110 to allow pt to to improve postural alignment, to improve performance of ADLs, to improve gait mechanics / gait pattern and to decrease falls risks . -- MET Perform work activities as well as ADLs with decreased report of symptoms/pain in 6 weeks. -- MET Perform prolonged sitting or standing 1 hour or greater without pain. -- PROGRESSING, albe to stand x1 hour, difficulty with prolonged sitting. Patient will improve 5 time sit to stand to demonstrate improvement in functional lower extremity strength. -- MET, 15 reps without UE's. Improve postural awareness. -- MET Normal gait. -- MET Reciprocal stair negotiation. -- MET Patient will be able to correct postural deviations independently in order to allow for maintenance of proper alignment fo (more content not included)... [facility] 06-26-2021 Note HNO ID: [id number] Author: Kathy Stephens, PT Service: ? Author Type: Physical Therapist Type: Progress Notes Filed: 06/26/2021 6:53 PM Note Text: Episode Visit Count: 12 Therapist That Will Oversee The Plan Of Care: Kathy Stephens Start of Care Date: 05/14/21 Onset Date: 04/18/21 Plan of Care Certification Date: 06/26/21 Next Certification Due Date: 07/31/21 Patient Identified by Name and Date of : Yes REHABILITATION AND SPORTS THERAPY PHYSICAL THERAPY PROGRESS REPORT PLAN OF CARE UPDATE: Assessment: Ramon Alves demonstrates difficulty with sitting, bending, kneeling and driving and improvements in rising from a chair, standing, walking, walking in the house, walking in the community, stair negotiation and bending. He hasprogressed toward goals. Patient continues to present with impairments in ADL's, balance, gait, joint mobility, overall function, patient reported outcome measures, range of motion and strength that interfere with sitting;bending;stair negotiation;kneeling;squatting;work ing . Current prognosis is Good due to: positive past response to therapy;within-session changes . He will benefit from continued skilled therapy services to meet the updated goals for this plan of care as noted below. Goals for Episode of Care: created on 05/14/21 through 06/25/21 Goals updated on 06/26/2021 through [place] in home exercise program. -- MET Patient will increase active ROM of L knee to 0-110 to allow pt to to improve postural alignment, to improve performance of ADLs, to improve gait mechanics / gait pattern and to decrease falls risks . -- PROGRESSING Perform work activities as well as ADLs with decreased report of symptoms/pain in 6 weeks. -- PROGRESSING Perform prolonged sitting or standing 1 hour or greater without pain. -- PROGRESSING Patient will improve 5 time sit to stand to demonstrate improvement in functional lower extremity strength. -- PROGRESSING Improve postural awareness. -- MET Normal gait. -- PROGRESSING Reciprocal stair negotiation. -- PROGRESSING Patient will be able to correct postural deviations independently in order to allow for maintenance of proper alignment for 45 mins during treatment session. -- PROGERSSING Patient will increase balance to 15 seconds for single limb stance on RLE and 15 seconds for single limb stance on LLE without UE support. -- MET Patient will demonstrate improved neuromuscular coordination as evidenced by improve function for basic self-care tasks, home management tasks, prior functional tasks and work tasks. -- PROGRESSING Patient Goals: return to amb without AD, sitting and driving without limitation, and return to work activities -- MET Planned Interventions, Frequency, and Duration: 1x/week (due to work schedule), 5 weeks Total Number of Visits Planned: 5 Patient to be seen for Therapeutic exercise (45229);Neuromuscular re-education (49539);Manual therapy (66639);Therapeutic activities (60843);Self-intermediate management (97696);Gait Training ([id number]);Patient/Family/Caregiver Education;Body Mechanics Training PLAN FOR NEXT VISIT: Continue functional strengthening, increase depth of sit to stand and other closed chain functional strengthening. SUBJECTIVE: Patient Reason for Visit: Visit began 10 min early. Pt. reports he has continued difficulty with flexion ROM stretching for his L knee, this has become more difficult since return to work.. 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 5 points is clinically meaningfully difference Percentiles provide an indication of how the patient's score ranks in relation to the general population. Higher percentile rankings indicate better function/quality of life. 50th percentile is the average of the general population and indicates half of respondents had a worse score. T-scores: mean of general population = 50. 5 points is clinically meaningfully difference Percentiles provide an indication of how the patient's score ranks in relation to the general population. Higher percentile rankings indicate better function/quality of life. 50th percentile is the average of the general population and indicates half of respondents had a worse score. OBJECTIVE MEASURES WITH LEVEL OF FUNCTION: LE AROM R Knee Flexion: 103 Degrees Gait Gait: Independent Gait Device: None Gait Deviations: Left Lower Extremity Gait Deviations Left Lower Extremity: Push off during terminal stance decreased;Foot clearance decreased TREATMENT: Therapeutic Exercise: 1: SciFit seat 12 x4 minutes (subjective taken) 2: supine HS stretch with strap 3x30 sec each LE 3: Prone lying strap assist quad stretch 4x40 seconds 4: pro (more content not included)... [facility] 06-19-2021 Note HNO ID: [id number] Author: Kathy Stephens, PT Service: ? Author Type: Physical Therapist Type: Progress Notes Filed: 06/20/2021 8:01 AM Note Text: Episode Visit Count: 11 Therapist That Will Oversee The Plan Of Care: Kathy Stephens Start of Care Date: 05/14/21 Onset Date: 04/18/21 Plan of Care Certification Date: 05/14/21 Next Certification Due Date: 06/25/21 Patient Identified by Name and Date of : Yes REHABILITATION AND SPORTS THERAPY PHYSICAL THERAPY TREATMENT NOTE ASSESSMENT: Ramon Alves tolerated the session with fatigue and expected muscle soreness. He demonstrated difficulty with left knee flexion with stiff and tight feeling and good tolerance to return to work.. The patient will continue to benefit from ongoing skilled physical therapyto progress toward set goals. PLAN FOR NEXT VISIT: Continue to progress flexion AROM and strength left LE SUBJECTIVE: Patient Reason for Visit: Patient reports he started back to work Thursday. He reports he feels better with being up and around more with movements. Pain: Pain Pain Level: 0 (worst pain today 4/10) Pain Location: Knee - Left Frequency: Intermittent Post Treatment Pain Post Treatment Pain Level: No Change Post Treatment Symptoms: stiff feeling OBJECTIVE MEASURES WITH LEVEL OF FUNCTION: LE AROM L Knee Extension: 0 Degrees L Knee Flexion: 100 Degrees TREATMENT: Therapeutic Exercise: 1: SciFit seat 12 x4 minutes (subjective taken) 2: Upirght bike seat 9 partial revolutions forward and backward x 4 minutes. 3: Prone lying strap assist quad stretch 4x40 seconds 4: Supine left quad sets with wedge bolster under ankle 5 second hold x 15 5: Supine strap assist gastroc stretch with therapist assist with hamstring stretch 3x30 seconds 6: left strap assist quad stretch supine with sliding board 5 second hold 2x15 7: Cando assist left quad stretch with therapist arm under left knee and hand on right thigh with 3# x 4 minutes 8: Forward step ups 2 blue steps (12 inches) 2x15 10: Forward step up with left and down and over with right 10 step 1x10 each direction and 12 inch step x 5 each direction with // bar assist. 11: TRX squats with chair behind for target 2x10 Skilled Intervention: Patient was educated in proper exercise technique and purpose for exercises. Skilled judgment was provided in selection of appropriate interventions. Correct performance of therapeutic exercises was facilitated with verbal cuing. Billing Therapeutic Exercise Treatment Minutes: 45 Total Treatment Time Minutes (timed and untimed codes) : 45 THIAGO Yancey, PT [facility] 06-12-2021 Note HNO ID: [id number] Author: Kathy Stephens PT Service: ? Author Type: Physical Therapist Type: Progress Notes Filed: 06/13/2021 7:51 AM Note Text: Episode Visit Count: 10 Therapist That Will Oversee The Plan Of Care: Kathy Stephens Start of Care Date: 05/14/21 Onset Date: 04/18/21 Plan of Care Certification Date: 05/14/21 Next Certification Due Date: 06/25/21 Patient Identified by Name and Date of : Yes REHABILITATION AND SPORTS THERAPY PHYSICAL THERAPY TREATMENT NOTE ASSESSMENT: Ramon Alves tolerated the session with no issues. He demonstrated difficulty with sitting and left knee flexion is still limited. He is progressing slowly with flexion of knee and extension is 0 degrees.. The patient will continue to benefit from ongoing skilled physical therapy to progress toward set goals. PLAN FOR NEXT VISIT: Continue to progress flexion AROM and strength left LE SUBJECTIVE: Patient Reason for Visit: Patient reports he still is having pain with sitting. He reports walking is good with no pain. Pain: Pain Pain Level: 4 (seated and 0/10 with walking) Pain Location: Knee - Left Description: (annoying) Frequency: Intermittent (no pain with walking and sitting still difficult) Post Treatment Pain Post Treatment Pain Level: 0 Post Treatment Pain Location: Knee - Left Post Treatment Symptoms: feels good with walking with no pain OBJECTIVE MEASURES WITH LEVEL OF FUNCTION: LE AROM L Knee Extension: 0 Degrees L Knee Flexion: 101 Degrees Functional Performance Test Results 30 Second Chair Stand Test: 14 reps TREATMENT: Therapeutic Exercise: 1: SciFit seat 12 x4 minutes (subjective taken) 2: Upirght bike seat 9 partial revolutions forward and backward x 4 minutes. 3: Prone lying strap assist quad stretch 4x40 seconds 4: Supine left quad sets with wedge bolster under ankle 5 second hold x 15 5: Supine strap assist gastroc stretch with therapist assist with hamstring stretch 3x30 seconds 6: left strap assist quad stretch supine with sliding board 5 second hold 2x15 7: Cando assist left quad stretch with therapist arm under left knee and hand on right thigh with 3# x 4 minutes 8: Forward step ups 2 blue steps (12 inches) 2x15 9: TKE purple band 3 second hold 2x15 10: Forward step up with left and down and over with right 10 step 1x10 each direction with // bar assist. 11: TRX squats with chair behind for target 2x12 12: Bridging with gluteal squeezes 2x15 13: 30 second sit to stand from chair x 14 reps Skilled Intervention: Patient was educated in proper exercise technique and purpose for exercises. Skilled judgment was provided in selection of appropriate interventions. Correct performance of therapeutic exercises was facilitated with verbal cuing. Billing Therapeutic Exercise Treatment Minutes: 60 Total Treatment Time Minutes (timed and untimed codes) : 60 THIAGO Yancey, PT [facility] 06-10-2021 Note HNO ID: [id number] Author: Kathy Stephens PT Service: ? Author Type: Physical Therapist Type: Progress Notes Filed: 06/10/2021 10:52 AM Note Text: Episode Visit Count: 9 Therapist That Will Oversee The Plan Of Care: Kathy Stephens Start of Care Date: 05/14/21 Onset Date: 04/18/21 Plan of Care Certification Date: 05/14/21 Next Certification Due Date: 06/25/21 Patient Identified by Name and Date of : Yes REHABILITATION AND SPORTS THERAPY PHYSICAL THERAPY TREATMENT NOTE ASSESSMENT: Ramon Alves tolerated the session with decreased activity tolerance due to significant increase pain following last therapy and decrease ability to do exercises at home. He had decrease flexion AROM and improved knee extension to 0 degrees. . The patient will continue to benefit from ongoing skilled physical therapy to progress toward set goals. PLAN FOR NEXT VISIT: Continue to progress flexion AROM and strength left LE SUBJECTIVE: Patient Reason for Visit: Patient reports increase lasting pain through yesterday following last therapy. He reports he does not want to do that again as it set him back. He reports finally feeling better today. Pain: Pain Pain Level: 4 Pain Location: Knee - Left Description: (annoying) Frequency: Intermittent (no pain with walking and sitting still difficult) Post Treatment Pain Post Treatment Pain Level: 0 Post Treatment Pain Location: Knee - Left Post Treatment Symptoms: feels good with walking and no increase pain with exercises OBJECTIVE MEASURES WITH LEVEL OF FUNCTION: LE PROM L Knee Extension: 0 Degrees (supine) L Knee Flexion: 96 Degrees (supine) TREATMENT: Therapeutic Exercise: 1: SciFit seat 12 x6 minutes (subjective taken) 2: Supine left AROM on sliding board 1x10 3: Supine strap assist quad stretch 5 second hold 2x10 4: Prone lying strap assist quad stretch 3x30 seconds 5: Supine physioball flexion and extension 2x10 6: Bridging with gluteal squeezes 2x12 7: LAQ right 3-5 second 2x10 8: Forward step ups 10 inch step left 2x10 9: TKE purple band 3 second hold 1x15 10: Forward step up with left and down and over with right 10 step 1x5 each direction with // bar assist. 11: TRX squats with chair behind for targe 2x10 Skilled Intervention: Patient was educated in proper exercise technique and purpose for exercises. Skilled judgment was provided in selection of appropriate interventions. Correct performance of therapeutic exercises was facilitated with verbal cuing. Billing Therapeutic Exercise Treatment Minutes: 48 Total Treatment Time Minutes (timed and untimed codes) : 48 Erlinda Julio, [employer] Kathy Stephens, PT [facility] 06-05-2021 Note HNO ID: [id number] Author: Kathy Stephens, PT Service: ? Author Type: Physical Therapist Type: Progress Notes Filed: 06/05/2021 3:47 PM Note Text: Episode Visit Count: 8 Therapist That Will Oversee The Plan Of Care: Kathy Stephens Start of Care Date: 05/14/21 Onset Date: 04/18/21 Plan of Care Certification Date: 05/14/21 Next Certification Due Date: 06/25/21 Patient Identified by Name and Date of : Yes REHABILITATION AND SPORTS THERAPY PHYSICAL THERAPY TREATMENT NOTE ASSESSMENT: Ramon Alves tolerated the session with increased pain and expected muscle soreness. He demonstrated improvements in L knee flexion AAROM as well as AROM supine heel slide with and without strap. The patient will continue to benefit from ongoing skilled physical therapyto continue with post-operative protocol . PLAN FOR NEXT VISIT: Continue stretching and strengthening to improve LAQ AROM L knee extension, and L knee flexion AROM. SUBJECTIVE: Patient Reason for Visit: Pt. reports he has been working on knee flexion heel slides, he feels soreness that fluctuates in intensity. Pain: Pain Pain Level: (pt. does not rate, states that it's sore with flexion) Pain Location: Knee - Left Description: Tightness Frequency: Intermittent Post Treatment Pain Post Treatment Pain Level: 0 Post Treatment Pain Location: Knee - Left OBJECTIVE MEASURES WITH LEVEL OF FUNCTION: LE AROM L Knee Flexion: 102 Degrees (supine AROM heel slide without heel strap) LE PROM L Knee Flexion: 110 Degrees TREATMENT: Therapeutic Exercise: 1: SciFit seat 12 x6 minutes 2: Prone lying quad stretch with strap assist 3x30 seconds RLE 3: supine heel slide AROM 1x10 (measurement taken) 4: supine heel slide AAROM continuous 3 min with strap (measurement taken) 5: seated hip flexed 90, knee extended heel on towel roll 5x10 sec 6: seated LAQ 2x12 LLE (yard stick for refernce 0 extension in seat) 12: lateral step up with left leg and down and over with right onto 10 step x10 each direction. 13: Forward step up with left leg and down and over with right onto 10 step x10 each direction. Skilled Intervention: Patient was educated in proper exercise technique and purpose for exercises. Reviewed and educated patient on additions/changes for home exercise program as above (*). Skilled judgment was provided in selection of appropriate interventions. Correct performance of therapeutic exercises was facilitated with verbal cuing. Additional time necessary for intermittent rest due to pain and fatigue. Patient education as noted. Neuromuscular Re-Education: 1: SLS on foam 5x15 sec without UE support LLE Skilled Intervention: Skilled judgment used to assess appropriate program for balance and coordination activity. Insured patient safety with use of // bars. Reviewed and educated patient on additions/changes for home program as noted above with an (*). Patient education as noted. Billing Therapeutic Exercise Treatment Minutes: 30 Neuromuscular Re-Education Treatment Minutes: 10 Total Treatment Time Minutes (timed and untimed codes) : 40 Kathy Stephens PT [facility] 06-03-2021 Note HNO ID: [id number] Author: Kathy Stephens PT Service: ? Author Type: Physical Therapist Type: Progress Notes Filed: 06/03/2021 11:46 AM Note Text: Episode Visit Count: 7 Therapist That Will Oversee The Plan Of Care: Kathy Stephens Start of Care Date: 05/14/21 Onset Date: 04/18/21 Plan of Care Certification Date: 05/14/21 Next Certification Due Date: 06/25/21 Patient Identified by Name and Date of : Yes REHABILITATION AND SPORTS THERAPY PHYSICAL THERAPY TREATMENT NOTE ASSESSMENT: Ramon Alves tolerated the session with expected muscle soreness and tightness. He demonstrated difficulty with AROM left knee flexion and extension AROM 0 degrees.. The patient will continue to benefit from ongoing skilled physical therapyto continue with post-operative protocol . PLAN FOR NEXT VISIT: manual therapy as needed, increase left knee flexion and quad strength SUBJECTIVE: Patient Reason for Visit: Patient reports feeling really sore and stiff yesterday and exerciess were harder to do. He reports feeling really tight today. He reports sleep is better but still not good. Pain: Pain Pain Level: 5 Pain Location: Knee - Left Description: Tightness Frequency: Intermittent Post Treatment Pain Post Treatment Pain Level: 0 Post Treatment Pain Location: Knee - Left Post Treatment Symptoms: feels good with walking and still pain and tight with bending OBJECTIVE MEASURES WITH LEVEL OF FUNCTION: LE AROM L Knee Extension: 0 Degrees L Knee Flexion: 97 Degrees TREATMENT: Therapeutic Exercise: 1: SciFit seat 12 x6 minutes (subjective taken) 2: Prone lying quad stretch with strap assist 3x30 seconds 3: Prone lying with left contract relax ROM 3 bouts x 2 4: Prone lying with LLLD stretch 4# x 3 minutes 5: Cando assist left quad stretch with therapist arm under left knee and hand on right thigh x 4 minutes 6: Supine with physioball flexion and extension 2x15 7: Stair step left knee flexion stretch 10 second hold x 5 8: TKE blue band 5 second hold 2x15 9: Left quad sets 5 second hold x 20 10: left forward step ups blue and green step left 2x10 11: left lateral step up left aura and green step 2x10 12: Squats with // bar assist 2x10 13: Forward step up with left leg and down and over with right onto 10 step x5 each direction. Skilled Intervention: Patient was educated in proper exercise technique and purpose for exercises. Skilled judgment was provided in selection of appropriate interventions. Correct performance of therapeutic exercises was facilitated with verbal and visual cuing. Manual Therapy: 1: Soft tissue mobs left ITB, quad and medial and lateral knee with foam roller and lacrosse ball with push to tolerance Skilled Intervention: Manual skills to improve joint mobility, ROM, and decrease pain. Utilized anatomy knowledge of the therapist, and assessment of patient's response to intervention. Billing Therapeutic Exercise Treatment Minutes: 50 Manual TherapyTreatment Minutes: 5 Total Treatment Time Minutes (timed and untimed codes) : 53 THIAGO Yancey, PT [facility] 05-31-2021 Note HNO ID: [id number] Author: Sarah Melton PT Service: ? Author Type: Physical Therapist Type: Progress Notes Filed: 05/31/2021 9:03 AM Note Text: Episode Visit Count: 6 Therapist That Will Oversee The Plan Of Care: Kathy Stephens Start of Care Date: 05/14/21 Onset Date: 04/18/21 Plan of Care Certification Date: 05/14/21 Next Certification Due Date: 06/25/21 Patient Identified by Name and Date of : Yes REHABILITATION AND SPORTS THERAPY PHYSICAL THERAPY TREATMENT NOTE ASSESSMENT: Ramon Alves tolerated the session with expected muscle soreness. He demonstrated improvements in sleep and tolerance for exercises today. AROM flexion increased 101 degrees!. The patient will continue to benefit from ongoing skilled physical therapyto continue with post-operative protocol . PLAN FOR NEXT VISIT: Progress quad strength and left knee flexion SUBJECTIVE: Patient Reason for Visit: Patient reports he saw the Dr yesterday and now how some pain medication to take. He reports sleeping better last night. Pain: Pain Pain Level: 3 Pain Location: Knee - Left Description: Aching (sharp at times) Frequency: Intermittent Post Treatment Pain Post Treatment Pain Level: 0 Post Treatment Pain Location: Knee - Left Post Treatment Symptoms: feels better OBJECTIVE MEASURES WITH LEVEL OF FUNCTION: LE AROM L Knee Extension: 0 Degrees L Knee Flexion: 101 Degrees TREATMENT: Therapeutic Exercise: 1: SciFit seat 12 x5 minutes (subjective taken) 2: Prone lying quad stretch with strap assist 3x30 seconds 3: Prone lying with left contract relax ROM 3 bouts x 2 4: Prone lying with LLLD stretch 4# x 3 minutes 5: Cando assist left quad stretch with therapist arm under left knee and hand on right thigh x 3 minutes 6: Supine with physioball flexion and extension 2x15 7: Passive left knee flexion stretch supine x 3 8: TKE blue band 5 second hold 2x12 9: Left quad sets 5 second hold x 10 10: Forward step up with left leg and down and over with right onto 10 step x6 each direction. 11: Squats with // bar assist 2x10 12: Forward and lateral step up left 1x10 each Skilled Intervention: Patient was educated in proper exercise technique and purpose for exercises. Skilled judgment was provided in selection of appropriate interventions. Correct performance of therapeutic exercises was facilitated with verbal and visual cuing. Billing Therapeutic Exercise Treatment Minutes: 45 Total Treatment Time Minutes (timed and untimed codes) : 45 Erlinda Julio, THIAGO Melton, PT [facility] 05-30-2021 Note HNO ID: [id number] Author: Rudy Garcia PA-C Service: ? Author Type: Physician Sewing Inspector Type: Progress Notes Filed: 05/30/2021 12:54 PM Note Text: Ortho Knee Follow Up Note Narrative Referring Provider: Cheng Lagunas [id number] [facility] [id number] PCP: Juan Jose Agudelo MD IMPRESSION/PLAN: 56 year old s/p Left Total Knee Replacement completed on 04/18/2021. Orthopaedic Surgeries 04/18/2021 (6w) ARTHROPLASTY REPLACE JOINT TOTAL KNEE (Left) Cheng Lagunas MD; Delfino Rea MD - Posted PAIN EVALUATION 05/30/2021 1126 Pain Level: 4 Pain Location: Knee-Left Description: Tightness Duration Amount of Time: 6 Duration Units: Weeks Frequency: Continuous Intervention/Comfort measure: Medication IMPRESSION: At normal post-operative stage of recovery. Slow post-operative recovery. PLAN: Continue current conservative treatment. Patient Reassurance: Normal post-operative course discussed with patient. Patient reassured and supported. All questions answered. Follow up 3 weeks No X-Rays Needed Ramon Alves presents today for a a routine 1st post-op visit ACTIVE PROBLEM LIST Primary Osteoarthritis of Both Knees Essential Hypertension, Benign Class 1 Obesity Due to Excess Calories With Body Mass Index (Bmi) of 32.0 to 32.9 in Adult Primary Osteoarthritis of Left Knee Primary Osteoarthritis of Right Knee Status Post Total Knee Replacement, Left Status post op: BMI: There is no height or weight on file to calculate BMI. Post-operative recovery was complicated by uneventful/none. Readmission(s) since surgery (90 days post)? No ED Visits AND Hospitalizations - Last 180 days 04/18/21 Cheng Lagunas MD, [facility]OP S/P total knee arthroplasty, left, Admission (Discharged) Patient rates their condition as improving. Does the patient still experience pain? see MIDAS Form Post Op discharge patient location: in home. Functional Assessment is as follows: has already started outpatient PT as of this visit. Functional difficulties: Interferes with sleep and Walking. Pain Medication: Narcotic and Non-narcotic Current Opioids Analgesic Opioid Agonists Start End traMADol (ULTRAM) 50 mg tablet 05/30/2021 Sig - Route: Take 1-2 tablets by mouth every 8 hours as needed for pain. for pain. - ORAL Currently Ambulating with: crutches Physical Therapy Data 05/21/2021 05/24/2021 05/28/2021 Surgical procedure L TKA L TKA L TKA Surgical procedure date 04/18/2021 - - AROM L knee extension - -2 0 AROM L knee flexion - 93 99 PROM L knee extension -3 - - Therapist that will oversee plan of care Kathy Stephens Prognosis - - - Frequency - - - Duration - - - Total number of visits - - - Planned treatment interventions - - - Plan for next visit Continue progressing quad strengthening, add TKE with band in standing. Progress quad strength and knee flexion and extension AROM. Progress quad strength and left knee flexion Provider signed - - - EXAM: POST OP KNEE Left Post-Operative Knee Ambulates with a: limp favoring the left. SKIN: Appropriate postop appearance. Range of motion is 0 degrees in extension and 90 degrees of flexion. Extension La degrees Pain with ROM:Yes There is Mild effusion. Mal-alignment: No Tender to the palpation of Medial femoral condyle and Lateral femoral condyle Neurovascular Status: Sensation Intact and Moves foot and ankle up AND down Stability:Anterior/Posterior- Yes, stable and Varus/Valgus- Yes, stable Quad strength: improving Imagin. Implants are well aligned. Implants are well fixed. Provider: Rudy Garcia PA-C Patient has been struggling with sleep as well as discomfort. He has been attending outpatient physical therapy and is seeing some progress. He contacted our office and was prescribed Ambien and but this has not been sufficiently adequate for sleep. He has been using anti-inflammatory medications but no other pain medication. He is frustrated about his ongoing discomfort and his sleep this is. Patient was reassured that his symptoms are quite normal at this point in time. To help with his insomnia, I recommended some changes for his medications. I have also prescribed tramadol to be used as directed. He was shown Dr. Lagunas's flexion exercises. He will contact her office in about 2 weeks and update us on his progress. I feel he may be ready to return back to work in the next 2 to 4 weeks. Completed by: Rudy Garcia PA-C This office note has been dictated. AMEYA Goodson Dr. supervising physician. [facility] 05-30-2021 Note HNO ID: [id number] Author: Ginger Lopes RN Service: ? Author Type: ? Type: Progress Notes Filed: 05/30/2021 12:54 PM Note Text: DATE OF SURGERY/PROCEDURE: 04/18/2021 SURGERY/PROCEDURE: Left cemented total knee arthroplasty using a Jalen Persona size 7 posterior stabilized femoral component, size E tibial baseplate, 12 mm posterior stabilized tibial insert vitamin E, 35 mm patellar button, no lateral release. Patient comes in today for a 6 week post op check. Patient had a left total knee replacement and they present today on a cane. Patient states he has not been able to sleep due to pain 4/10 that is like a tight band above his knee, pain on the outer aspect and below the knee. He states it is continuous and sitting for too long is uncomfortable. He explains he tried the sleep aide we prescribed, but it only worked for two nights. Patient takes Nabumetone daily for his pain. Patient states incision looks good. No redness or drainage noted. They currently are in outpatient Physical therapy. X-ray obtained. [facility] 05-30-2021 Note HNO ID: [id number] Author: RT Kassandra(R) Service: ? Author Type: Technologist Type: Progress Notes Filed: 05/30/2021 10:49 AM Note Text: Radiology Service Progress Note PATIENT NAME: Ramon Alves DATE OF SERVICE: May 30, 2021 TIME: 10:48 AM PATIENT IDENTITY VERIFICATION COMPLETED USING TWO (2) IDENTIFIERS: Name and Date of confirmed by patient verbally. FALL SCREENING: Has the patient had 2 falls in the last year or 1 fall with injury or currently using an Ambulatory Assistive Device (Walker, Cane, Wheelchair, Crutches, etc.)? Yes, Patient High Risk for Falls What interventions were put in place to prevent falls during this visit? CANE PATIENT GENDER DATA: Male PATIENT RELEVANT IMPLANT DATA REVIEWED: Not Applicable RADIOLOGY DEPARTMENT: General X-ray: Exam(s) Completed: Lower Extremity X-Ray(s): Knee, AP / Lat / Merchant Left and Wt. Bearing PERIPHERAL IV DATA: Not applicable SIGNED BY: RT Kassandra(R) May 30, 2021 10:48 AM [facility] 05-30-2021 History of Present illness Narrative Radiology Service Progress Note PATIENT NAME: Ramon Alves DATE OF SERVICE: May 30, 2021 TIME: 10:48 AM PATIENT IDENTITY VERIFICATION COMPLETED USING TWO (2) IDENTIFIERS: Name and Date of confirmed by patient verbally. FALL SCREENING: Has the patient had 2 falls in the last year or 1 fall with injury or currently using an Ambulatory Assistive Device (Walker, Cane, Wheelchair, Crutches, etc.)? Yes, Patient High Risk for Falls What interventions were put in place to prevent falls during this visit? CANE PATIENT GENDER DATA: Male PATIENT RELEVANT IMPLANT DATA REVIEWED: Not Applicable RADIOLOGY DEPARTMENT: General X-ray: Exam(s) Completed: Lower Extremity X-Ray(s): Knee, AP / Lat / Merchant Left and Wt. Bearing PERIPHERAL IV DATA: Not applicable SIGNED BY: RT Kassandra(R) May 30, 2021 10:48 AM documented in this encounter [facility] 05-28-2021 Note HNO ID: [id number] Author: Bessy Ibarra PT Service: ? Author Type: Physical Therapist Type: Progress Notes Filed: 05/28/2021 2:12 PM Note Text: Episode Visit Count: 5 Therapist That Will Oversee The Plan Of Care: Kathy Stephens Start of Care Date: 05/14/21 Onset Date: 04/18/21 Plan of Care Certification Date: 05/14/21 Next Certification Due Date: 06/25/21 Patient Identified by Name and Date of : Yes REHABILITATION AND SPORTS THERAPY PHYSICAL THERAPY TREATMENT NOTE ASSESSMENT: Ramon Alves demonstrated difficulty with pain on left lateral leg at night and left knee with sitting and improvements in sleep at night since starting a sleeping pill and increase AROM flexion and extension at end of therapy today. Left knee with a tight end feel. The patient will continue to benefit from ongoing skilled physical therapy for continuation of supervised therapeutic exercises and manual therapy as needed. PLAN FOR NEXT VISIT: Progress quad strength and left knee flexion SUBJECTIVE: Patient Reason for Visit: Patient reports starting a sleeping pill and is now getting some sleep. He reports the knee still hurts with sitting with knee flexed. He reports lateral leg and knee hurt. Pain: Pain Pain Level: 3 Pain Location: Knee - Left (lateral leg along ITB) Description: Aching (sharp at times) Frequency: Intermittent (continous with seated with knee flexed) Post Treatment Pain Post Treatment Pain Level: 1 Post Treatment Pain Location: Knee - Left Post Treatment Pain Description: Sore Post Treatment Symptoms: still hurts with sitting with knees flexed OBJECTIVE MEASURES WITH LEVEL OF FUNCTION: LE AROM L Knee Extension: 0 Degrees L Knee Flexion: 99 Degrees TREATMENT: Therapeutic Exercise: 1: SciFit seat 12 x 7 minutes (subjective taken) 2: Prone lying quad stretch with strap assist 4x30 seconds 3: LAQ left 5 second hold x 15 4: Supine quad sets with wedge under ankle 5 second hold 1x15 5: Heel slides on sliding board with strap assist 5 second hold 2x12 6: Cando assist left quad stretch with therapist arm under left knee and hand on right thigh x 3 minutes 7: Prone lying with left contract relax ROM 3 bouts x 2 8: TKE blue band 5 second hold 2x12 9: Forward step up with left leg and down and over with right onto 6 and 8 step x 5 each direction. (Education on proper form and tactile assist from therapist to decrease left knee latera compensation.) 11: Education to patient to not feel like he has to stretch left knee into flexion at all times during the day and allow for a relaxed less painful position when sitting when he is not specificly doing his home program. Skilled Intervention: Patient was educated in proper exercise technique and purpose for exercises. Skilled judgment was provided in selection of appropriate interventions. Correct performance of therapeutic exercises was facilitated with verbal, visual and tactile cuing. Patient education as noted. Manual Therapy: 1: Soft tissue mobs left ITB, quad and medial and lateral knee with foam roller and lacrosse ball with push to tolerance 2: Passive left knee flexion stretch supine x 3 Skilled Intervention: Manual skills to improve joint mobility, ROM, and decrease pain. Utilized anatomy knowledge of the therapist, and assessment of patient's response to intervention. Gait Trainin: Ambulation up and down 4 steps with 2 hand rail assist step over step and 1 upper extremity assist step over step x 2 with good form Skilled Intervention: Facilitated proper gait cycle with the use of verbal and visual cues. Billing Therapeutic Exercise Treatment Minutes: 42 Manual TherapyTreatment Minutes: 15 Gait Training Treatment Minutes: 7 Total Treatment Time Minutes (timed and untimed codes) : 64 Erlinda Flaquito, GAS UTILITY WORKER/Bessy Ibarra, PT [facility] 05-24-2021 Note HNO ID: [id number] Author: Kathy Stephens, PT Service: ? Author Type: Physical Therapist Type: Progress Notes Filed: 05/24/2021 8:35 AM Note Text: Episode Visit Count: 4 Therapist That Will Oversee The Plan Of Care: Kathy Stephens Start of Care Date: 05/14/21 Onset Date: 04/18/21 Plan of Care Certification Date: 05/14/21 Next Certification Due Date: 06/25/21 Patient Identified by Name and Date of : Yes REHABILITATION AND SPORTS THERAPY PHYSICAL THERAPY TREATMENT NOTE ASSESSMENT: Ramon Alves demonstrated difficulty with sleeping at night due to pain and difficulty with knee flexion AROM. Knee extension is improving nicely. Education today on adding soft tissue mobs at home along with stretching and strengthening. The patient will continue to benefit from ongoing skilled physical therapy for progression of strength and AROM of left knee. PLAN FOR NEXT VISIT: Progress quad strength and knee flexion and extension AROM. SUBJECTIVE: Patient Reason for Visit: Patient reports not sleeping good at night as left hip and knee were uncomfortable. He reports being frustrated with progress. He reports hyper senstive to touch with blankets over incision. Pain: Pain Pain Level: 0 (5/10 with movement on SciFit stepper and sharp at times.) Pain Location: Knee - Left Frequency: Intermittent Post Treatment Pain Post Treatment Pain Level: 1 Post Treatment Pain Location: Knee - Left Post Treatment Pain Description: Sore (sharp at time knee with bending) OBJECTIVE MEASURES WITH LEVEL OF FUNCTION: LE AROM L Knee Extension: -2 Degrees (supine) L Knee Flexion: 93 Degrees (supine) TREATMENT: Therapeutic Exercise: 1: SciFit seat 12 x 5 minutes (subjective taken) 2: Prone lying quad stretch with strap assist 4x30 seconds 3: Prone lying with 3# weight extension stretch x 3 minutes (foam f roller over hamstrings during this time.) 4: Supine quad sets with wedge under ankle 5 second hold 2x12 5: Heel slides on sliding board with strap assist 5 second hold 2x12 6: Cando assist left quad stretch with therapist arm under left knee and hand on right thigh 1x2 minutes and 1x1.5 minutes 7: LAQ left 5 second hold x 10 8: *TKE blue band 3 second hold 2x12 (vended scott band for home) 9: Forward step ups onto blue step 6 2x15 10: Forward step up with left leg and down and over with right onto 6 and 8 step x 3 each direction. 11: Education to patient on ways to massaged left quad, medial and lateral knee and ITB. Also to do this multiple times during the day and decrease strengthening 3x/day. 12: Discussed with evaluating PT to possibly add manual therapy to treatment plan to assist patient as needed in therapy. Skilled Intervention: Patient was educated in proper exercise technique and purpose for exercises. Reviewed and educated patient on additions/changes for home exercise program as above (*). Skilled judgment was provided in selection of appropriate interventions. Provided written instruction for home exercise program to facilitate proper performance and compliance. Correct performance of therapeutic exercises was facilitated with verbal and visual cuing. Patient education as noted. Billing Therapeutic Exercise Treatment Minutes: 58 Total Treatment Time Minutes (timed and untimed codes) : 58 Erlinda Julio PTA Add manual therapy to POC Kathy Stephens, PT [facility] 05-21-2021 Note HNO ID: [id number] Author: Kathy Stephens PT Service: ? Author Type: Physical Therapist Type: Progress Notes Filed: 05/21/2021 6:32 PM Note Text: Episode Visit Count: 3 Therapist That Will Oversee The Plan Of Care: Kathy Stephens Start of Care Date: 05/14/21 Onset Date: 04/18/21 Plan of Care Certification Date: 05/14/21 Next Certification Due Date: 06/25/21 Patient Identified by Name and Date of : Yes REHABILITATION AND SPORTS THERAPY PHYSICAL THERAPY TREATMENT NOTE ASSESSMENT: Ramon Chris demonstrated improvements in L knee AAROM/PROM today to 0 seated with hips flexed 90. The patient will continue to benefit from ongoing skilled physical therapy for continued functional strengthening and stretching to improve mobility. PLAN FOR NEXT VISIT: Continue progressing quad strengthening, add TKE with band in standing. SUBJECTIVE: Patient Reason for Visit: Pt. reports not being able to tolerate riding in a vehicle for greater than 5 miles and not being able to sleep. He feels very frustated with slow progress. He reports he doesn't need his cane, but will use it longer distances as he becomes sore. Pain: Pain Pain Level: 0 Pain Location: Knee - Left Frequency: Intermittent Additional Pain Information : Location 2 Pain Location 2: Buttocks - Left Description 2: Aching;Dull (annoying) Frequency 2: Intermittent Post Treatment Pain Post Treatment Pain Location: Knee - Left Post Treatment Symptoms: seated left thigh to left calf toothache type pain OBJECTIVE MEASURES WITH LEVEL OF FUNCTION: LE PROM L Knee Extension: -3 Degrees (seated, hip flexed 90) TREATMENT: Therapeutic Exercise: 1: SciFit seat 12 x 5 minutes 2: seated Quad set 2x sets of 10x10 second hold 3: seated LAQ 5x5 (cues to complete reps slowly and to avoid using momentum through partial AROM) 4: seated LAQ AAROM 5: prone L quad stretch with strap AAROM 3x30 seconds 6: prone L HS curls 3x8 LLE 7: prone B hip extension 3x8 8: SL hip abd 3x8 LLE Skilled Intervention: Patient was educated in proper exercise technique and purpose for exercises. Reviewed and educated patient on additions/changes for home exercise program as above (*). Skilled judgment was provided in selection of appropriate interventions. Provided written instruction for home exercise program to facilitate proper performance and compliance. Correct performance of therapeutic exercises was facilitated with verbal and visual cuing. Additional time necessary for intermittent rest due to fatigue. Educated patient on rationale for performing exercises in regards to decreasing fatigue , increase ease of ADL and ROM and function . Patient education as noted. Gait Trainin: gait without AD level surface 100' cues to heel strike Skilled Intervention: Patient was provided supervision during pre-gait/gait training to prevent falls and insure safety. Skilled judgment used to assess selection of assistive device. Correct performance of home program was facilitated with verbal cueing. Billing Therapeutic Exercise Treatment Minutes: 40 Gait Training Treatment Minutes: 5 Total Treatment Time Minutes (timed and untimed codes) : 45 Kathy Stephens PT [facility] 05-17-2021 Note HNO ID: [id number] Author: Kathy Stephens PT Service: ? Author Type: Physical Therapist Type: Progress Notes Filed: 05/17/2021 9:21 AM Note Text: Episode Visit Count: 2 Therapist That Will Oversee The Plan Of Care: Kathy Stephens Start of Care Date: 05/14/21 Onset Date: 04/18/21 Plan of Care Certification Date: 05/14/21 Next Certification Due Date: 06/25/21 Patient Identified by Name and Date of : Yes REHABILITATION AND SPORTS THERAPY PHYSICAL THERAPY TREATMENT NOTE ASSESSMENT: Ramon Alves demonstrated difficulty with left thigh to calf aching when seated and no pain with standing or walking. He is progressing with gait, AROM and strength. The patient will continue to benefit from ongoing skilled physical therapy for progression of supervised therapeutic exercises. PLAN FOR NEXT VISIT: Continue with progress of AROM left knee, gait and strengthening in weight bearing positions. SUBJECTIVE: Patient Reason for Visit: Patient reports difficulty sleeping last night due to left buttock and knee pain. He reports feeling best with walking and standing and seated in chair is uncomfortable left quad to calf. Pain: Pain Pain Level: 0 Pain Location: Knee - Left Frequency: Intermittent Additional Pain Information : Location 2 Pain Level 2: 3 Pain Location 2: Buttocks - Left Description 2: Aching;Dull (annoying) Frequency 2: Intermittent Post Treatment Pain Post Treatment Pain Level: 0 Post Treatment Pain Location: Knee - Left Post Treatment Pain Description: (no pain standing or walking) Post Treatment Symptoms: seated left thigh to left calf toothache type pain OBJECTIVE MEASURES WITH LEVEL OF FUNCTION: LE AROM L Knee Extension: -3 Degrees (supine) L Knee Flexion: 96 Degrees (supine) TREATMENT: Therapeutic Exercise: 1: SciFit seat 12 x 5 minutes (discussed exercises) 2: *Prone lying strap assist left quad stretch 3x30 seconds 3: *Prone lying extesion stretch 1.5# x 3 minutes (foam roller over left hamstring and buttock during this time) 4: Supine AROM heel slides using sliding board 1x15 5: Supine AROM with strap assist with sliding board 5 second hold 2x 15 6: Supine with physioball flexion and extension 1x15 7: Left SLR 2x10 (slight quad lag) 8: Forward step ups left 8 step 2x10 9: Lateral step ups 8 step left 2x10 10: *Sit to stand from chair with no UE assist x 10 Skilled Intervention: Patient was educated in proper exercise technique and purpose for exercises. Reviewed and educated patient on additions/changes for home exercise program as above (*). Skilled judgment was provided in selection of appropriate interventions. Provided written instruction for home exercise program to facilitate proper performance and compliance. Correct performance of therapeutic exercises was facilitated with verbal and visual cuing. Gait Trainin: Gait on level with st cane with no gait deviation with verbal and visual cues from mirror to assist with proper form. Gait with no assistive device improving with cueing to increase push off on left during swing through of gait. Also cues for left foot to be straight forward and he has slight toe in during gait. Skilled Intervention: Facilitated proper gait cycle with the use of verbal and visual cues for correction of gait deviations identified in the objective section above. Billing Therapeutic Exercise Treatment Minutes: 50 Gait Training Treatment Minutes: 8 Total Treatment Time Minutes (timed and untimed codes) : 58 Erlinda Julio, GAS UTILITY WORKER Kathy Stephens, PT [facility] 05-14-2021 Note HNO ID: [id number] Author: Kathy Stephens PT Service: ? Author Type: Physical Therapist Type: Progress Notes Filed: 05/14/2021 11:57 AM Note Text: Episode Visit Count: 1 Therapist That Will Oversee The Plan Of Care: Kathy Stephens Start of Care Date: 05/14/21 Onset Date: 04/18/21 Plan of Care Certification Date: 05/14/21 Next Certification Due Date: 06/25/21 Patient Identified by Name and Date of : Yes REHABILITATION AND SPORTS THERAPY PHYSICAL THERAPY EVALUATION PLAN OF CARE: Assessment: Ramon Alves presents with the chief complaint of L knee pain and difficulty with ADLs following s/p L knee TKA 04/18/21. He presents with impairments of gait deviation due to limited quadriceps strength, pt. Requires education for purpose and correct use of AD, and demonstrates difficulty with pain limiting his functional mobility to participate in ADLs and work activities at this time. He may benefit from skilled therapy services to further improve functional mobility and strength of LLE. Prognosis: Good Goals for Episode of Care: created on 05/14/21 through 06/25/21 [place] in home exercise program. Patient will increase active ROM of L knee to 0-120 to allow pt to to improve postural alignment, to improve performance of ADLs, to improve gait mechanics / gait pattern and to decrease falls risks . Perform work activities as well as ADLs with decreased report of symptoms/pain in 6 weeks. Perform prolonged sitting or standing 1 hour or greater without pain. Patient will improve 5 time sit to stand to demonstrate improvement in functional lower extremity strength. Improve postural awareness. Normal gait. Reciprocal stair negotiation. Patient will be able to correct postural deviations independently in order to allow for maintenance of proper alignment for 45 mins during treatment session. Patient will increase balance to 15 seconds for single limb stance on RLE and 15 seconds for single limb stance on LLE without UE support. Patient will demonstrate improved neuromuscular coordination as evidenced by improve function for basic self-care tasks, home management tasks, prior functional tasks and work tasks. Patient Goals: return to amb without AD, sitting and driving without limitation, and return to work activities Planned Interventions, Frequency, and Duration: Current Frequency: 2x/week Duration: 6 weeks Total Number of Visits Planned: 12 Planned Treatment Interventions: Therapeutic exercise (99302);Neuromuscular re-education (08970);Self-intermediate management (23289);Gait Training (29327);Patient/Family/Caregiver Education;Therapeutic activities (64614) PLAN FOR NEXT VISIT: Measure AAROM and AROM, assess if pt. is progressing. Add closed chain stretching and functional strengthening HEP in addition to continued stretching to improve AROM. Patient demonstrates good understanding of plan of care and treatment. The above goals and plan of care were discussed and agreed upon by patient/family. 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 Falls Interview: No positive findings with falls interview Pain: Pain Pain Level: 1 Pain Location: Knee - Left Description: Aching Frequency: Continuous Post Treatment Pain Post Treatment Pain Level: 1 Post Treatment Pain Location: Knee - Left Post Treatment Pain Description: Aching Post Treatment Symptoms: it actually feels better already! PROMIS Scales T-scores: mean of general population = 50. 5 points is clinically meaningfully difference Percentiles provide an indication of how the patient's score ranks in relation to the general population. Higher percentile rankings indicate better function/quality of life. 50th percentile is the average of the general population and indicates half of respondents had a worse score. T-scores: mean of general population = 50. 5 points is clinically meaningfully difference Percentiles provide an indication of how the patient's score ranks in relation to the general population. Higher percentile rankings indicate better function/quality of life. 50th percentile is the average of the general population and indicates half of respondents had a worse score. OBJECTIVE MEASURES WITH LEVEL OF FUNCTION: Knee Observations L Knee Presents with: Swelling Sensation - Lo (more content not included)... [facility] 04-18-2021 Note HNO ID: [id number] Author: Faby Ramos APRN.ELEVATOR REPAIRER HELPER Service: Anesthesiology Author Type: Nurse Manager Party Type: Anesthesia Procedure Notes Filed: 04/18/2021 7:49 AM Note Text: ANESTHESIOLOGY PROCEDURE NOTE Spinal Block General Information Procedure Start Time/Medication Administration: 04/18/2021 7:44 AM Procedure End time: 04/18/2021 7:49 AM Patient location during procedure: OR Timeout Performed Pre-procedure: timeout performed Consent Obtained: Yes Patient identity confirmed: arm band and patient Reason for Block: primary surgical anesthetic Staffing Anesthesiologist: Celestino Michelle MD ELEVATOR REPAIRER HELPER: Faby Ramos APRN.ELEVATOR REPAIRER HELPER Performed by: anesthesiologist Preparation Sterility Preparation: hand hygiene performed prior to procedure, gown used during line insertion, surgical cap used, mask used, sterile drape used during line insertion, skin prep agent completely dried prior to procedure Site Prep: Duraprep Procedure Details Patient Position: sitting Monitoring: Pulse Ox and EKG Approach: Right paramedian Location: L3-4 Needle Needle Type: pencil-tip Needle Gauge: 24 G Assessment Events: tolerated well Medications Administered Bupivacaine-dextrose 0.75 % (7.5 mg/mL) injection (SENSORCAINE MPF SPINAL), 1.6 mL SIGNATURE: Faby Ramos APRN.ELEVATOR REPAIRER HELPER PATIENT NAME: Ramon Alves DATE: April 18, 2021 TIME: 7:44 AM [facility]: [id number] [facility] 04-18-2021 Note HNO ID: [id number] Author: Faby Ramos APRN.ELEVATOR REPAIRER HELPER Service: Anesthesiology Author Type: Nurse Manager Party Type: Anesthesia Procedure Notes Filed: 04/18/2021 7:45 AM Note Text: ANESTHESIOLOGY PROCEDURE NOTE Peripheral Nerve Block General Information Procedure Start Time/Medication Administration: 04/18/2021 7:07 AM Procedure End time: 04/18/2021 7:19 AM Patient location during procedure: induction room Timeout Performed Pre-procedure: timeout performed Consent Obtained: Yes Patient identity confirmed: arm band, care presentation team member and patient Reason for block: post-op pain management/at surgeon's request Staffing Anesthesiologist: Celestino Michelle MD SRNA: KATERINA Silver Performed by: KATERINA and anesthesiologist Preparation Sterility Preparation: hand hygiene performed prior to procedure, surgical cap used, mask used, sterile drape used during line insertion, skin prep agent completely dried prior to procedure Site Prep: Chloraprep Pre-Procedure Neuro Exam Location: LLE Sensory: intact Motor: intact Procedure Details Patient Position: supine Monitoring: Pulse OX, EKG and NIBP Block Type Lower Extremity: femoral Laterality: left Injection Technique: single-shot Ultrasound Guided: Yes Image in Chart: yes Local Infiltration: Yes Needle Needle Type: echogenic Needle Gauge: 21 G Needle Length: 100 mm Needle Localization: anatomical landmarks, nerve stimulator, paresthesias and ultrasound Needle Insertion Depth: 3 cm Assessment Injection assessment: negative aspiration, no paresthesia on injection, incremental injection and local visualized surrounding nerve on ultrasound Medications Administered Dexamethasone sodium phosphate injection (DECADRON), 10 mg ropivacaine (PF) 5 mg/mL (0.5 %) injection (NAROPIN), 30 mL SIGNATURE: KATERINA Silver PATIENT NAME: Ramon Alves DATE: April 18, 2021 TIME: 7:24 AM CSN: [id number] [facility] 04-15-2021 Note HNO ID: [id number] Author: Johanna Perdomo RN Service: ? Author Type: Registered Nurse Type: Progress Notes Filed: 04/24/2021 11:11 AM Note Text: TOTAL JOINT COMPLETE CARE PROGRAM ORTHOPAEDIC TOTAL JOINT CLASS Service Date: 04/15/2021 Service Time: 1p-3p Ramon Alves is scheduled for a left knee replacement on 04/18/[address] Lagunas . He did attend the pre-op joint replacement class on 04/15/2021. Issues Reviewed: SEE BELOW: Education Topic/Teaching Points: Day of surgery arrival instructions (including phone number to call for arrival time) Pre-op skin wipes Hospital course: -TCI area, operating room, recovery room -Anesthesia: Spinal vs general -Pain control: Nerve block, epidural, oral medications, AND IV medications -DVT prophylaxis ASA, Lovenox, Coumadin Post-op dressings Showering instructions Aquacell dressing to be removed 7 days post op Incision care: Silvino vs dissolvable sutures with glue Signs AND symptoms of infection Signs AND symptoms of DVT Home physical therapy Home pain medications: Refill protocol and side effects Pain management: Ice, elevation of extremity and pain meds Care Management Discharge plan Discuss with family/friends about assistance after discharge from the hospital SNF (Shelter Facility) Rehab nurse will contact prior to admission to discuss post-op needs and home therapy vs SNF auto fleet manager/healthcare social worker in hospital final arrangements for discharge Physical and occupational therapy while in the hospital Getting your home ready What to bring to the hospital Preparing yourself for surgery: Dentist, stop smoking Diet Exercises: Circulation exercises Adaptive equipment Hip and knee precautions SIGNATURE: Johanna Perdomo RN PATIENT NAME: Ramon Alves DATE: April 24, 2021 TIME: 11:05 AM PAGER/CONTACT #: [phone] LEAH LANG RN [facility] 04-15-2021 Note Education (EUQM) RAMON ALVES ([id number]) 1965 M Date Time Provider Department 04/15/21 BELÉN LANG Reason for Visit: Pre-Op Teaching [134] Cmt: Attended the total joint replacement class. During your visit today, we recorded the following information about you: Allergies As of Date: 04/15/2021 (No Known Allergies) Date Reviewed: 04/03/2021 Reviewed by: Joanie Tay APRN.SUPERINTENDENT GENERAL - Fully Assessed Prescriptions as of 04/24/2021 - baclofen (LIORESAL) 10 mg tablet Take 1 tablet by mouth three times daily. - aspirin, enteric coated (ASPIRIN, ENTERIC COATED) 325 mg EC tablet Take 1 tablet by mouth twice daily. - acetaminophen (TYLENOL) 500 mg tablet Take 2 tablets by mouth every 8 hours. Taper down and off as pain subsides - bisacodyl EC (DULCOLAX) 5 mg EC tablet Take 2 tablets by mouth once daily. Take regularly when on narcotics, Take as needed for constipation when narcotics completed - docusate sodium (COLACE) 100 mg capsule Take 1 capsule by mouth twice daily. Take regularly when on narcotics, Take as needed for constipation when narcotics completed - therapeutic multivitamin-minerals (THERA-M PLUS) 9 mg iron-400 mcg tablet Take 1 tablet by mouth once daily. - oxyCODONE IR (ROXICODONE) 5 mg immediate release tablet Take 1 tablet by mouth every 4 hours as needed for pain for up to 7 days. Taper down and off as pain subsides - ondansetron (ZOFRAN) 4 mg tablet Take 1 tablet by mouth every 8 hours as needed for nausea/vomiting. - hydroCHLOROthiazide (HYDRODIURIL, ESIDRIX) 12.5 mg tablet Take 12.5 mg by mouth once daily. - lisinopril (ZESTRIL, PRINIVIL) 20 mg tablet Take 20 mg by mouth once daily. Encounter Status:Closed by JOHANNA PERDOMO on 04/24/21 [facility] 04-12-2021 Note HNO ID: [id number] Author: Jere George, Research Coordinator Service: ? Author Type: Research Type: Progress Notes Filed: 04/12/2021 10:39 AM Note Text: Summary: Research Update: PEPPER Trial Patient was contacted yesterday, 04/11/2021, and offered participation in the PEPPER Trial. Patient expressed initial interest in participation and requested additional time to discuss the study details with his spouse. Study paperwork, including the informed consent form, baseline knee survey, and patient contact information form were provided to the patient via myWebRoom. The PEPPER study team received notice of a telephone update today stating that the patient has decided to decline participation in the study. Therefore, this patient will not be enrolled in the PEPPER Trial at this time. Jere George DO, MPH, [facility] 04-11-2021 Note HNO ID: [id number] Author: Jere George, Research Coordinator Service: ? Author Type: Research Type: Progress Notes Filed: 04/11/2021 4:27 PM Note Text: Summary: Research Encounter: PEPPER Trial This patient has been screened for the PEPPER Trial. The patient was determined to be a potentially eligible candidate for the study. I contacted the patient today. Study details were provided and all questions the patient had regarding the study were answered. The patient expressed potential interest in participating in the study but wished to discuss the study with his spouse prior to consenting. The patient does not have an email address and requested that the study paperwork be sent to his spouse's email address for further review. The PEPPER Trial informed consent form, baseline knee survey, and patient contact information form were provided to the patient via myWebRoom. The patient will review the study forms with his spouse and make a final decision regarding participation. Should the patient decide to enroll in the trial, research activity may begin once the patient has provided a signed informed consent form. Jere George DO, MPH, [facility] 04-03-2021 Note HNO ID: [id number] Author: RT Aspen(R) Service: ? Author Type: Technologist Type: Progress Notes Filed: 04/03/2021 8:18 AM Note Text: Radiology Service Progress Note PATIENT NAME: Ramon Alves DATE OF SERVICE: April 03, 2021 TIME: 8:17 AM PATIENT IDENTITY VERIFICATION COMPLETED USING TWO (2) IDENTIFIERS: Name and Date of confirmed by patient verbally. FALL SCREENING: Has the patient had 2 falls in the last year or 1 fall with injury or currently using an Ambulatory Assistive Device (Walker, Cane, Wheelchair, Crutches, etc.)? No PATIENT GENDER DATA: Male PATIENT RELEVANT IMPLANT DATA REVIEWED: Not Applicable RADIOLOGY DEPARTMENT: General X-ray: Exam(s) Completed: Lower Extremity X-Ray(s): Knee, AP / Lat / Tunne / Merchant Left and Wt. Bearing PERIPHERAL IV DATA: Not applicable SIGNED BY: RT Aspen(R) April 03, 2021 8:17 AM [facility] 10-29-2020 Note HNO ID: [id number] Author: Rudy Garcia PA-C Service: ? Author Type: Physician Sewing Inspector Type: Progress Notes Filed: 10/29/2020 1:25 PM Note Text: CONSULT ORTHOPAEDIC: KNEE PRIMARY CARE PHYSICIAN: Juan Jose Agudelo MD REFERRING PROVIDER: SELF ASSESSMENT AND PLAN Impression: Bilateral Knee Severe Degenerative Osteoarthritis, Primary Ramon Alves has radiograph and physical exam evidence of degenerative joint disease and wishes to consider options before making a decision for surgery. This patient appears to have sufficient symptoms to warrant surgical intervention and is an appropriate candidate for left Primary Total Knee Arthroplasty as evidenced by six months of unsuccessful non-operative treatment as outlined in the HPI below. This patient has the following risk factors: none We had a lengthy discussion regarding the risk and benefit of surgery, the alternatives, limitations and personnel involved. These included but were not limited to infection, persistent pain, instability, nerve injury, blood clots, and medical complications. We also discussed the pre-operative course, surgery itself and rehabilitation. Ani-operative blood management and transfusion issues were discussed, and options clearly outlined. The patient has not consented to the use of the banked allogenic blood if medically necessary. The patient has elected to schedule surgery at this time or intends to call the office with a surgical date. Shared decision making occurred while obtaining informed consent. The patient will be scheduled for a pre-operative education class at which time they will have their nasal swab completed and will be given CHG cloths along with the verbal and written instructions for their use. Patient has been instructed and has been scheduled or will call to schedule attendence in one of the total joint perioperative classes offered prior to proceeding with TKA The patient has been ordered: No orders placed today. CONSULTS: Patient does not require consults for optimization at this time. ACTIVE PROBLEM LIST Primary Osteoarthritis of Both Knees SUBJECTIVE CHIEF COMPLAINT: Knee Pain HPI: Ramon Alves is a 55 year old patient here for evaluation and management of bilateral knee pain. Ramon Alves has had progressive problems with the knee(s) multiple times a day over the past 2 year(s) interfering with activities which include exercise, walking, standing for prolonged periods of time, dressing and climbing stairs. The problem began limiting activities 1-6 months ago. Currently the pain in the joint is rated at 7 out of 10 with moderate activity. The pain is intermittent and is located along the inside aspect. The pain is described as severe. Relieving factors include ambulatory device and rest. There is no specific incident that brought about this pain. Ramon Alves has no additional complaints. FUNCTIONAL STATUS: Do heavy work around the house, such as scrubbing floors, lifting or moving heavy furniture (8.00 METs) Preoperative Ambulatory Status: Independent Community Distances Number of Entry Steps: 2 Bedroom Location: Second floor Bathroom Location: Second floor Caregiver Assistance: Consistent/Live-In (5-7 days/wk) Home Location: [place] PREVIOUS TREATMENTS: Attempted Weight Loss Medical Treatments: OTC NSAIDS for 3 Months or Greater (Ibuprofen), RX NSAIDS for 3 Months or Greater (nabumetone (relafen)) Physical Therapy: Shoe Wear, Braces, Orthotics, etc. and Activities Modified REVIEW OF SYSTEMS: PAIN ASSESSMENT: See HPI. MUSCULOSKELETAL: See HPI. Surgical Risk Factors: HTN No past medical history on file. No past surgical history on file. No family history on file. Social History Tobacco Use - Smoking status: Not on file Substance Use Topics - Alcohol use: Not on file - Drug use: Not on file ALLERGIES: Patient has no known allergies. MEDICATIONS: hydroCHLOROthiazide (HYDRODIURIL, ESIDRIX) 12.5 mg tablet Take 12.5 mg by mouth once daily. lisinopril (ZESTRIL, PRINIVIL) 20 mg tablet Take 20 mg by mouth once daily. PHYSICAL EXAM: Ht 169.5 cm (5' 6.75) Wt 90.4 kg (199 lb 4.8 oz) BMI 31.45 kg/m? All other systems deferred. GENERAL: Appears healthy, well-nourished, no deformities. HABITUS: Normal GAIT: Antalgic to the left KNEE EXAM: Left: Alignment: Varus deformity, Correctable Range of motion is 5 degrees in extension and 100 degrees of flexion. Extension La degrees Pain with ROM: Yes Effusion: Mild Tender to the palpation of Medial femoral condyle, Lateral femoral condyle and Medial joint line Pain with patellar compression: No Stability: Anterior/Posterior stable and Varus/Valgus stable Hip Exam: flexion to 100+ degrees Neurovascular Status: Sensation Intact, Moves foot and ankle up AND down and 2+ posterial tibial Right: Alignment: Varus deformity, Correctable Ran (more content not included)... [facility] 10-29-2020 Note HNO ID: [id number] Author: Patricia Grigsby Ma Service: ? Author Type: ? 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 Castañeda HPH: Cardiac: No Hypertension: Yes- controlled with medication Lungs: No Kidneys: No DM: No DVT: No Smoking: No Alcohol: No Steroids (Solu-Medrol/Prednisone/Medrol dose pack): No Family History: Bleeding tendencies: No Blood Clots: No Anesthesia problems: No Height: 5'6.75 Weight 199 Estimated body mass index is 31.45 kg/m? as calculated from the following: Height as of this encounter: 169.5 cm (5' 6.75). Weight as of this encounter: 90.4 kg (199 lb 4.8 oz). Allergies and Current Medications have been reviewed and verified. Allergies to metal: No No past surgical history on file. No past medical history on file. Patricia Grigsby Ma [facility] 10-29-2020 Note HNO ID: [id number] Author: RT Kassandra(Markus) Service: ? Author Type: High Rigger Type: Progress Notes Filed: 10/29/2020 11:16 AM Note Text: Radiology Service Progress Note PATIENT NAME: Ramon Alves DATE OF SERVICE: October 29, 2020 TIME: 11:15 AM PATIENT IDENTITY VERIFICATION COMPLETED USING TWO (2) IDENTIFIERS: Name and Date of confirmed by patient verbally. FALL SCREENING: Has the patient had 2 falls in the last year or 1 fall with injury or currently using an Ambulatory Assistive Device (Walker, Cane, Wheelchair, Crutches, etc.)? No PATIENT GENDER DATA: Male PATIENT RELEVANT IMPLANT DATA REVIEWED: Not Applicable RADIOLOGY DEPARTMENT: General X-ray: Exam(s) Completed: Lower Extremity X-Ray(s): Knee, AP / Lat / Tunne / Merchant Bilateral and Wt. Bearing PERIPHERAL IV DATA: Not applicable SIGNED BY: RT Kassandra(R) October 29, 2020 11:15 AM [facility] 10-29-2020 History of Present illness Narrative Radiology Service Progress Note PATIENT NAME: Ramon Alves DATE OF SERVICE: October 29, 2020 TIME: 11:15 AM PATIENT IDENTITY VERIFICATION COMPLETED USING TWO (2) IDENTIFIERS: Name and Date of confirmed by patient verbally. FALL SCREENING: Has the patient had 2 falls in the last year or 1 fall with injury or currently using an Ambulatory Assistive Device (Walker, Cane, Wheelchair, Crutches, etc.)? No PATIENT GENDER DATA: Male PATIENT RELEVANT IMPLANT DATA REVIEWED: Not Applicable RADIOLOGY DEPARTMENT: General X-ray: Exam(s) Completed: Lower Extremity X-Ray(s): Knee, AP / Lat / Tunne / Merchant Bilateral and Wt. Bearing PERIPHERAL IV DATA: Not applicable SIGNED BY: Kathy Bojorquez RT(R) October 29, 2020 11:15 AM documented in this encounter [facility] Evaluation note No assessment information availa [facility] Work Phone: Evaluation note Diagnosis Pain Generalized pain documented [facility] Diagnosis Pre-operative examination- Primary Preoperative examination, unspecified Primary osteoarthritis of left knee Primary localized osteoarthrosis, lower leg Essential hypertension, benign Class 1 obesity due to excess calories with body mass index (BMI) of 32.0 to 32.9 in adult, unspecified whether serious comorbidity present Primary osteoarthritis of right knee Primary localized osteoarthrosis, lower leg Primary osteoarthritis of both knees Primary localized osteoarthrosis, lower leg Primary osteoarthritis of left knee Primary localized osteoarthrosis, lower leg [facility] Diagnostic Procedure Only (Routine) - Closed Specialty Diagnoses / Procedures Referred By Reinier ponce Referred To Contact XR IMAGING Diagnoses Primary osteoarthritis of both knees Primary osteoarthritis of left knee Procedures XR KNEE POST OP 3V AP/LAT/MERCHANT LT X-RAY KNEE 3+ VW Rudy Garcia PA-C [address] [place] [address] [address] [place] [address] [facility] [place] [address] Referral ID Status Reason Start Date Expiration Date V isits Requested Visits Authorized [id number] Closed Auto-Generate d Referral 12/12/2020 01/11/2022 1 1 [facility]No reason for referral information [facility] Work Phone: Reason for visit Narrative* Diagnostic Procedure Only (Routine) - Closed Specialty Diagnoses / Procedures Referred By Reinier ponec Referred To Contact XR IMAGING Diagnoses Primary osteoarthritis of both knees Primary osteoarthritis of left knee Procedures XR KNEE POST OP 3V AP/LAT/MERCHANT LT X-RAY KNEE 3+ VW Rudy Garcia PA-C [address] [facility] [address] [place] [address] [place] [id number] Referral ID Status Reason Start Date Expiration Date V isits Requested Visits Authorized [id number] Closed Auto-Generate d Referral 12/12/2020 01/11/2022 1 1 [facility] Summary Purpose Family History No Family History Records FoundNo Family History Records FoundNo Family History Records Found Advance Directives No Advanced Directives Records FoundNo Advanced Directives Records FoundNo Advanced Directives Records Found Chief Complaint and Reason for Visit Chief Complaint EORDER ALSO FOR DOCT OR RANNEY Chief Complaint Admit Date INT LAB ORDERS October 08, 2024 6:59a m Additional Source Comments (unrecognized sect ion and content) No Status Records FoundNo Status Records FoundNo Status Records Found INFORMATION SOURCE (unrecogn ized section and content) DATE CREATED AUTHOR 04/25/2021 [facility] DATE CREATED AUTHOR AUTHOR'S ORGANIZ ATION 09/14/2021 [facility] DATE CREATED AUTHOR AUTHOR'S ORGANIZ ATION 10/15/2024 [facility] Goals (unrecognized section and content) Goals may be documented in a n alternate sectionGoals may be documented in an alternate sectionGoals may be documented in an alternate section Care Teams (unrecognized sec tion and content) Team Status: Active Member Role Status Dates No Primary Care Physician Family Provider Active Dr. Matias Sánchez MD Primary Care Provider Activ e Team Status: Inactive Member Role Status Dates Dr. Matias Sánchez MD Primary Care Provider Activ e Tiffanie Mcclelland , LYLY-C Attending Provider Active [employer] Relationship Specialty Start Date End Date Juan Jose Agudelo PCP - General 12/30/04 [employer] Manager Relationship Specialty Start Date End Date Juan Jose Agudelo PCP - General 12/30/04 Belén Lang, extrusion machine operator Coordinator 04/16/21 Team Status: Active Member Role Status Dates No Primary Care Physician Family Provider Active Dr. Anil Sánchez MD Primary Care Provider Acti ve Team Status: Inactive Member Role Status Dates Dr. Anil Sánchez MD Primary Care Provider Acti ve Start: October 08, 2024 End: October 08, 2024 Dr. Anil Sánchez MD Attending Provider Active Start: October 08, 2024 End: October 08, 2024 Dr. Anil Sánchez MD Referring Provider Active Start: October 08, 2024 End: October 08, 2024 Source Comments (unrecognize d section and content) In the event this informatio n is protected by the Federal Confidentiality of Alcohol and Drug Abuse Patient Records regulations: The Federal rules restrict any use of the information to criminally investigate or prosecute any alcohol or drug abuse patient.[facility] the event this information is protected by the Federal Confidentiality of Alcohol and Drug Abuse Patient Records regulations: The Federal rules restrict any use of the information to criminally investigate or prosecute any alcohol or drug abuse patient.[facility] FOR RECORDS PERTAINING TO PATIENTS WHO ARE OR HAVE BEEN ENROLLED IN A CHEMICAL DEPENDENCY/SUBSTANCEABUSE PROGRAM, SOME INFORMATION MAY BE OMITTED. This clinical summary was aggregated from multiple sources. Caution should be exercised in using it in the provision of clinical care. This summary normalizes information from multiple sources, and as a consequence, information in this document may materially change the coding, format and clinical context of patient data. In addition, data may be omitted in some cases. CLINICAL DECISIONS SHOULD BE BASED ON THE PRIMARY CLINICAL RECORDS. [facility] [employer] [facility] provides no warranty or guarantee of the accuracy or completeness of information in this document.
[2025-04-07 10:58] LABS: AST(SGOT) 16 U/L (<=37); Alanine Aminotransfer ALT/SGPT 37 U/L (<=46); Albumin, Serum 4.1 g/dL (3.4-4.8); Alkaline Phosphatase 63 U/L (40-129); Anion Gap 12 (5-15); BUN 23 mg/dL (4-19); BUN/Creat Ratio 23.4 RATIO (10-20); Calcium,Total 9.4 mg/dL (7.6-11.0); Carbon Dioxide 25.7 mmol/L (21.0-32.0); Chloride 105 mmol/L (98-108); Globulin 2.6 g/dL (2.2-4.2); Glucose 85 mg/dL (70-99); PSA,Total - Annual Screen 3.93 ng/mL (0.02-4.00); Potassium 4.0 mmol/L (3.3-5.1)
[2025-04-07 12:42] LABS: Cholesterol 173 mg/dL (<=200); Low Density Lipoprotein Calc. 112 mg/dL; Triglycerides 82 mg/dL; Very Low Density Lipoprotein 16 mg/dL (5-40); cholesterol:hdl ratio screen 3.78
== END | disposition home or self-care (01) ==
LOC: LAB 09:03
PROVIDERS: PCP Family Medicine; Referring Provider Family Medicine; Visit Provider Family Medicine
DX: I10 Essential (primary) hypertension (principal); R97.20 Elevated prostate specific antigen [PSA]
CPT/HCPCS: 36415; 80053; 80061; 84153; G0103